=== PATIENT | female | born 1945 | race Caucasian/White ===

== ENCOUNTER 2016-10-21 08:00 | Outpatient (RCR) | payer MEDICARE ==
[~2016-10-21 08:00] MED LIST: ASP81CT PO; ATOR20TA66 PO; BENZ100C23 PO; BUDE10.2 IH; BUDE10.22 IH; CALC-694 PO; CEFD300C3 PO; FLUT1DIS26; GUAI600T43 PO; HYDR-3583 PO; HYDR-3714 PO; INHA1INH59 MC; IPRA3AMP19 NEB; LEVO500T2 PO; LEVO750T6 PO; MULT-35 PO; MULT-608 PO; RISE150T PO; SENN1TAB76 PO; SIMV20TA3 PO; SIMV40TA2 PO; SLMFT1E; SMV10T; TIOT18CA IH
== END 2016-10-31 | disposition home or self-care (01) ==
LOC: PULM 08:00
PROVIDERS: ATTEND Nurse Practitioner Family
DX: J44.9 Chronic obstructive pulmonary disease, unspecified (principal); R06.02 Shortness of breath
CPT/HCPCS: 99211

== ENCOUNTER → 2017-03-07 | Outpatient (CLI) | payer MEDICARE ==
--- NOTE | 2017-03-07 11:30 | Diagnostic Imaging Report ---
CLINICAL INDICATION: Patient states she has had right knee pain since Tuesday. EXAM: X-ray of the right knee, three views. COMPARISON: None. FINDINGS: There is no evidence of acute fracture or dislocation. There is moderately hypertrophic patellar spurs at the quadriceps attachment. There is small degenerative spurs involving the medial compartment and patellofemoral compartment. There is mild medial compartment narrowing on these nonweightbearing views. There is no significant knee effusion. IMPRESSION: 1: There is no acute fracture or dislocation. There is no significant knee effusion. 2: There is degenerative disease at the right knee, as described above. Dictated by: Dictated on workstation # [id number]
== END ==
LOC: RAD 10:38
PROVIDERS: ATTEND Family Medicine
DX: M17.11 Unilateral primary osteoarthritis, right knee (principal)
CPT/HCPCS: 73562

== ENCOUNTER → 2017-04-12 | Outpatient (CLI) | payer MEDICARE ==
--- NOTE | 2017-04-12 14:03 | Diagnostic Imaging Report ---
PROCEDURE: MRI right joint lower extremity without contrast. TECHNIQUE: Multiplanar, multisequence non contrast-enhanced MRI of the right lower extremity was accomplished. INDICATION: Right knee pain. FINDINGS: There is prominent bone marrow edema within the medial tibial condyle and the central posterior aspect of the proximal tibial shaft. Surrounding soft tissue edema is also seen. This also involves the popliteus muscle with increased signal. Etiology is uncertain. This may relate to a bone contusion. Part of the signal abnormality extends to the subchondral region along the medial tibial plateau and reactive edema, joint stress, or degenerative change is possible. The extensor mechanism demonstrates enthesopathy along the quadriceps insertion with no disruption or full-thickness tear in the extensor mechanism. The ACL and PCL appear intact. There is fluid intensity seen along the posterior root of the medial meniscus with suggestion of an avulsion of the meniscus root and associated extrusion of the body of the medial meniscus. Degenerative signal within the meniscus posterior horn and body with component of a nondisplaced tear is suggested. The lateral meniscus appears intact. The MCL demonstrates slight buckling from the extruded meniscus with no significant tear otherwise. The lateral collateral ligament complex is intact. There is no popliteal cyst. There is small joint effusion. The cartilage demonstrates moderate thinning in the medial compartment and mild thinning in the lateral compartment. There is moderate/ severe thinning of the cartilage in the upper aspect of the patella along the medial facets. IMPRESSION: 1. There is prominent bone marrow edema in the proximal tibia shaft posteriorly and the medial tibial plateau. This could be in part related to a contusion or stress reactive change from the knee joint. The appearance however is somewhat atypical, and the exact etiology is uncertain. Correlate clinically. 2. There is also mild soft tissue edema around in the proximal tibia and also involving the popliteus muscle which could relate to myositis or a sprain. 3. Avulsion of the posterior root of the medial meniscus with extrusion of the body of the meniscus. Dictated by: Dictated on workstation # [id number]
== END ==
LOC: RAD 12:21
PROVIDERS: ATTEND Orthopaedic Surgery
DX: S83.241A Other tear of medial meniscus, current injury, right knee, initial encounter (principal); M85.861 Other specified disorders of bone density and structure, right lower leg; X58.XXXA Exposure to other specified factors, initial encounter; Y99.8 Other external cause status
CPT/HCPCS: 73721

== ENCOUNTER → 2017-07-14 | Outpatient (CLI) | payer MEDICARE | LOC: RAD 09:54 | PROVIDERS: ATTEND Family Medicine | DX: Z12.31 Encounter for screening mammogram for malignant neoplasm of breast (principal) | CPT/HCPCS: 77067 ==

== ENCOUNTER 2017-07-29 12:15 | Emergency (ER) | payer MEDICARE ==
[~2017-07-29] VITALS: Ht 149.9 cm; Wt 54.9 kg
[~2017-07-29 12:15] MED LIST changes: +BENZ-36 PO; -BENZ100C23 PO
--- OUTSIDE RECORDS SUMMARY | 2017-07-29 12:28 | XMS REPORT | Continuity of Care Document ---
Author Author [facility] Organization [facility] Address Unknown Phone Unavailable Allergies Active Description Code Type Severity Reaction Onset Reported/Identified Relationship to Patient Clinical Status Yes No Known Drug Allergies [id number] Drug Allergy Unknown N/ A 01/24/2009 Medications Problems Date Dx Coded Attending Type Code Diagnosis Diagnosed By 09/17/2011 Ot V57.1 PHYSICAL THERAPY NEC 09/17/2011 Ot V58.43 AFTERCARE POST SURGERY INJURY/TRAUMA 07/14/2015 RUTHANN NEW DOLINE S Ot Z12.39 08/04/2015 SHERRILL NEW DO S Ot Z12.39 12/24/2015 DINO VALDERRAMA ACCOUNT REVIEW SPECIALIST Ot J44.9 01/14/2016 DINO VALDERRAMA ACCOUNT REVIEW SPECIALIST Ot J44.9 CHRONIC OBSTRUCTIVE PULMONARY DISEASE, U 01/21/2016 DINO VALDERRAMA ACCOUNT REVIEW SPECIALIST Ot J44.9 CHRONIC OBSTRUCTIVE PULMONARY DISEASE, U 01/30/2016 FARHEEN NEW DOQUELINE S Ot E78.0 PURE HYPERCHOLESTEROLEMIA 01/30/2016 FARHEEN NEW DOQUELINE S Ot E86.0 DEHYDRATION 01/30/2016 FARHEEN NEW DOQUELINE S Ot J18.9 PNEUMONIA, UNSPECIFIED ORGANISM 01/30/2016 FARHEEN NEW DOQUELINE S Ot J20.9 ACUTE BRONCHITIS, UNSPECIFIED 01/30/2016 LUCHONDANDRE DO SHERRILL S Ot J44.0 CHRONIC OBSTRUCTIVE PULMON DISEASE W ACU 01/30/2016 LUCHONDFARHEEN POWELL DOQUELINE S Ot J44.1 CHRONIC OBSTRUCTIVE PULMONARY DISEASE W 01/30/2016 FARHEEN NEW DOQUELINE S Ot J44.9 CHRONIC OBSTRUCTIVE PULMONARY DISEASE , U 01/30/2016 FARHEEN NEW DOQUELINE S Ot R09.02 HYPOXEMIA 01/30/2016 FARHEEN NEW DOQUELINE S Ot Z87.891 PERSONAL HISTORY OF NICOTINE DEPENDENCE 07/12/2016 Ot 786.2 COUGH 07/12/2016 LUCHONDER DO, SHERRILL S Ot V76.12 OTH SCREEN MAMMO-MALIGN NEOPLASM OF [place] 07/12/2016 ROBEL DO JADON Mcmahan Ot 715.36 LOC OSTEOARTH NOS-L/LEG 07/12/2016 ROBEL DO, JADON F Ot 717.2 DERANG POST MED MENISCUS 07/12/2016 ROBEL DO, JADON Marj Ot 719.06 JOINT EFFUSION-L/LEG 07/12/2016 ROBEL DO JADON F Ot 719.46 JOINT PAIN-L/LEG 07/12/2016 ROBEL DO, JADON F Ot 727.09 SYNOVITIS NEC 07/12/2016 JUSTIN DENSON GRINDER HARDBOARD Ot 786.2 COUGH 07/12/2016 LUCHONDER DO, SHERRILL S Ot 724.3 SCIATICA 07/12/2016 LUCHONDER DO, SHERRILL S Ot V76.12 OTH SCREEN MAMMO-MALIGN NEOPLASM OF [place] 07/12/2016 LUCHONDER DO SHERRILL S Ot Z12.39 ENCOUNTER FOR OTH SCREENING FOR MALIGNAN 07/12/2016 DINO VALDERRAMA APRN Ot J44.9 CHRONIC OBSTRUCTIVE PULMONARY DISEASE, U 07/12/2016 ORENDER DO, SHERRILL S Ot V76.12 OTH SCREEN MAMMO-MALIGN NEOPLASM OF [place] 07/12/2016 ROBEL VÁZQUEZ JADON Mcmahan Ot 715.36 LOC OSTEOARTH NOS-L/LEG 07/12/2016 ROBEL VÁZQUEZ JADON Mcmahan Ot 717.2 DERANG POST MED MENISCUS 07/12/2016 ROBEL DO JADON Mcmahan Ot 719.06 JOINT EFFUSION-L/LEG 07/12/2016 ROBEL DO JADON Marj Ot 719.46 JOINT PAIN-L/LEG 07/12/2016 ROBEL DO JADON F Ot 727.09 SYNOVITIS NEC 07/12/2016 JUSTIN DENSONP Ot 786.2 COUGH 07/12/2016 LUCHONDER DO, SHERRILL S Ot 724.3 SCIATICA 07/12/2016 ORENDER DO, SHERRILL S Ot V76.12 OTH SCREEN MAMMO-MALIGN NEOPLASM OF CL[place] 07/12/2016 LUCHONDER DO SHERRILL S Ot Z12.39 ENCOUNTER FOR OTH SCREENING FOR MALIGNAN 07/12/2016 DINO VALDERRAMA ACCOUNT REVIEW SPECIALIST Ot J44.9 CHRONIC OBSTRUCTIVE PULMONARY DISEASE, U 07/13/2016 LUCHONDANDRE VÁZQUEZ, SHERRILL S Ot Z12.31 ENCNTR SCREEN MAMMOGRAM FOR MALIGNANT NE 07/13/2016 ZE MERCER DO Ot J44.9 CHRONIC OBSTRUCTIVE PULMONARY DISEASE, U 07/14/2016 LUCHONDER DO, SHERRILL S Ot Z12.31 ENCNTR SCREEN MAMMOGRAM FOR MALIGNANT NE 07/19/2016 LUCHONDER , SHERRILL S Ot Z12.31 ENCNTR SCREEN MAMMOGRAM FOR MALIGNANT NE 07/22/2016 LUCHONDER DO, SHERRILL S Ot Z12.31 ENCNTR SCREEN MAMMOGRAM FOR MALIGNANT NE 08/02/2016 Ot 786.2 COUGH 08/02/2016 VIRGEN VÁZQUEZ, SHERRILL S Ot V76.12 OTH SCREEN MAMMO-MALIGN NEOPLASM OF [place] 08/02/2016 JADON HUSTON DO Ot 715.36 LOC OSTEOARTH NOS-L/LEG 08/02/2016 JADON HUSTON DO Ot 717.2 DERANG POST MED MENISCUS 08/02/2016 JADON HUSTON DO Ot 719.06 JOINT EFFUSION-L/LEG 08/02/2016 ROBEL VÁZQUEZ JADON Marj Ot 719.46 JOINT PAIN-L/LEG 08/02/2016 JADON HUSTON DO Ot 727.09 SYNOVITIS NEC 08/02/2016 JUSTIN DENSON Ot 786.2 COUGH 08/02/2016 VIRGEN VÁZQUEZ, SHERRILL S Ot 724.3 SCIATICA 08/02/2016 VIRGEN VÁZQUEZ SHERRILL S Ot V76.12 OTH SCREEN MAMMO-MALIGN NEOPLASM OF CL[place] 08/02/2016 VIRGEN VÁZQUEZ, SHERRILL S Ot Z12.39 ENCOUNTER FOR OTH SCREENING FOR MALIGNAN 08/02/2016 DINO VALDERRAMA ACCOUNT REVIEW SPECIALIST Ot J44.9 CHRONIC OBSTRUCTIVE PULMONARY DISEASE, U 08/02/2016 VIRGEN VÁZQUEZ, SHERRILL S Ot Z12.31 ENCNTR SCREEN MAMMOGRAM FOR MALIGNANT NE 08/02/2016 ZE MERCER DO Ot J44.9 CHRONIC OBSTRUCTIVE PULMONARY DISEASE, U 08/10/2016 ZE MERCER DO Ot J44.9 CHRONIC OBSTRUCTIVE PULMONARY DISEASE, U 08/11/2016 ZE MERCER DO Ot J44.9 CHRONIC OBSTRUCTIVE PULMONARY DISEASE, U 09/09/2016 EMILY PRITCHETT APRN Ot J44.9 CHRONIC OBSTRUCTIVE PULMONARY DISEASE , U 09/09/2016 EMILY PRITCHETT APRN Ot R06.02 SHORTNESS OF BREATH 09/16/2016 EMILY PRITCHETT APRN Ot J44.9 CHRONIC OBSTRUCTIVE PULMONARY DISEASE , U 09/16/2016 EMILY PRITCHETT APRN Ot R06.02 SHORTNESS OF BREATH 10/13/2016 Ot 486 10/13/2016 Ot 789.01 10/31/2016 EMILY PRITCHETT APRN Ot J44.9 CHRONIC OBSTRUCTIVE PULMONARY DISEASE , U 10/31/2016 EMILY PRITCHETT APRN Ot R06.02 SHORTNESS OF BREATH 03/07/2017 SHERRILL NEW DO S Ot V76.12 OTH SCREEN MAMMO-MALIGN NEOPLASM OF [place] 03/07/2017 JADON HUSTON DO Ot 715.36 LOC OSTEOARTH NOS-L/LEG 03/07/2017 JADON HUSTON DO Ot 717.2 DERANG POST MED MENISCUS 03/07/2017 JADON HUSTON DO Ot 719.06 JOINT EFFUSION-L/LEG 03/07/2017 JADON HUSTON DO Ot 719.46 JOINT PAIN-L/LEG 03/07/2017 JADON HUSTON DO Ot 727.09 SYNOVITIS NEC 03/07/2017 JUSTIN DENSON GRINDER HARDBOARD Ot 786.2 COUGH 03/07/2017 RUTHANN NEW DOLINE S Ot 724.3 SCIATICA 03/07/2017 RUTHANN NEW DOLINE S Ot V76.12 OTH SCREEN MAMMO-MALIGN NEOPLASM OF [place] 03/07/2017 RUTHANN NEW DOLINE S Ot Z12.39 ENCOUNTER FOR OTH SCREENING FOR MALIGNAN 03/07/2017 DINO VALDERRAMA APRN Ot J44.9 CHRONIC OBSTRUCTIVE PULMONARY DISEASE, U 03/07/2017 RUTHANN NEW DOLINE S Ot Z12.31 ENCNTR SCREEN MAMMOGRAM FOR MALIGNANT NE 03/07/2017 ZE MERCER DO Ot J44.9 CHRONIC OBSTRUCTIVE PULMONARY DISEASE, U 03/07/2017 EMILY PRITCHETT APRN Ot J44.9 CHRONIC OBSTRUCTIVE PULMONARY DISEASE , U 03/07/2017 EMILY PRITCHETT APRN Ot R06.02 SHORTNESS OF BREATH 03/08/2017 RUTHANN NEW DOLINE Joya Ot M17.11 UNILATERAL PRIMARY OSTEOARTHRITIS, RIGHT 03/31/2017 RUTHANN NEW DOLINE Joya Ot M17.11 UNILATERAL PRIMARY OSTEOARTHRITIS, RIGHT 04/08/2017 RUTHANN NEW DOLINE Joya Ot M17.11 UNILATERAL PRIMARY OSTEOARTHRITIS, RIGHT 05/10/2017 JADON HUSTON DO Ot M85.861 OTH DISRD OF BONE DENSITY AND STRUCTURE, 05/10/2017 JADON HUSTON DO Ot S83.241A OTH TEAR OF MEDIAL MENISCUS, CURRENT INJ 05/10/2017 JADON HUSTON DO Ot X58.XXXA EXPOSURE TO OTHER SPECIFIED FACTORS, INI 05/10/2017 JADON HUSTON DO Ot Y99.8 OTHER EXTERNAL CAUSE STATUS 05/13/2017 Ot 486 05/13/2017 Ot 789.01 05/17/2017 JADON HUTSON DO Ot M85.861 OT DISRD OF BONE DENSITY AND STRUCTURE, 05/17/2017 JADON HUSTON DO Ot S83.241A OTH TEAR OF MEDIAL MENISCUS, CURRENT INJ 05/17/2017 JADON HUSTON DO Ot X58.XXXA EXPOSURE TO OTHER SPECIFIED FACTORS, INI 05/17/2017 JADON HUSTON DO Ot Y99.8 OTHER EXTERNAL CAUSE STATUS 06/12/2017 Ot 486 06/12/2017 Ot 789.01 07/14/2017 VIRGEN VÁZQUEZSHERRILL Ot Z12.31 ENCNTR SCREEN MAMMOGRAM FOR MALIGNANT NE Procedures Results Encounters ACCT No. Visit Date/Time Discharge Status Pt. Type Provider Facility Loc./Unit Complaint [id number] 07/14/2017 09:54:00 2016 23:59:59 CLS Outpatient SHERRILL NEW DO [facility] RAD SCREENING [id number] 04/12/2017 12:21:00 2016 23:59:59 CLS Outpatient JADON HUSTON DO [facility] RAD RT KNEE PAIN, STABLE MMT [id number] 03/07/2017 10:38:00 2016 23:59:59 CLS Outpatient VIRGEN DO SHERRILL S [facility] RAD RIGHT KNEE PAIN [id number] 11/01/2016 10:15:00 2016 23:59:59 CLS Preadmit EMILY PRITCHETT APRN [facility] PULM COPD,SOB ON EXERTION [id number] 10/21/2016 08:00:00 2016 00:01:00 DIS Outpatient EMILY PRITCHETT ACCOUNT REVIEW SPECIALIST [facility] PULM COPD,SOB ON EXERTION [id number] 07/13/2016 09:59:00 2015 23:59:59 CLS Outpatient LUCHOJARADADNRE RUTHANN VÁZQUEZLINE S [facility] RAD SCREENING [id number] 07/12/2016 13:42:00 2015 23:59:59 CLS Outpatient ZE MERCER DO [facility] RT COPD [id number] 01/28/2016 18:52:00 2015 12:05:00 DIS Inpatient LUCHOJARADANDRE RUTHANN VÁZQUEZLINE S [facility] 4TH PNEUMONIA,HYPOXIA [id number] 12/23/2015 10:08:00 2015 23:59:59 CLS Outpatient LAVELLE DINOPOONAM Cheatham APRN [facility] RAD COUGH,COPD,CHEST CONGESTION [id number] 07/10/2015 08:47:00 2014 23:59:59 CLS Outpatient VIRGEN DO SHERRILL S [facility] RAD SCREENING [id number] 06/24/2014 10:00:00 2013 23:59:59 CLS Outpatient FARHEEN NEW DOQUELINE S [facility] RAD SCREENING [id number] 05/28/2014 08:40:00 2013 23:59:59 CLS Outpatient FARHEEN NEW DOQUELINE S [facility] RAD LBP,R LEG SCIATICA [id number] 04/29/2014 14:30:00 2013 23:59:59 CLS Outpatient JUSTIN DENSON [facility] RAD COUGH [id number] 12/26/2013 12:02:00 2013 23:59:59 CLS Outpatient ROBEL VÁZQUEZJADON [facility] RAD DJD LT KNEE [id number] 06/22/2013 09:15:00 2012 23:59:59 CLS Outpatient VIRGEN VÁZQUEZ SHERRILL Joya [facility] RAD SCREENING [id number] 07/29/2017 12:17:00 ACT Emergency KRISTEL JEFFERSON APRN [facility] ER ABD PAIN [id number] 09/17/2011 13:02:00 Document Registration [id number] 09/07/2011 14:42:00 Document Registration [id number] 01/23/2009 10:42:00 Document Registration
--- NOTE | 2017-07-29 13:10 | ED Abdominal Pain ---
General Chief Complaint: Abdominal/GI Problems Stated Complaint: ABD PAIN Nursing Triage Note: C/O diffuse abd pain. Constipated.Sawe Dr barkley yesterday Sepsis Screen: No Definite Risk Source of Information: Patient Exam Limitations: No Limitations History of Present Illness Time Seen By Provider: 13:07 Initial Comments The patient is a 72-year-old white female. She presents today with complaints of a funny odd pain in the right lower quadrant. She has also noted the onset of relative constipation. She saw Dr. Barkley yesterday in the office. She has been scheduled for a colonoscopy to be performed by Dr. Valenzuela the week after Thanksgi. She has not previously had a colonoscopy. She has not noted hematochezia or melena. There is been no nausea or vomiting. She has lost a few pounds but of no significance. She reports that in the distant past she lost 100 pounds by dieting. Her only other history is that of a Timing/Duration: 1 Week Severity/Quality: Mild, Moderate Location: RLQ Radiation: No Radiation Activities at Onset: None Allergies and Home Medications Allergies Coded Allergies: No Known Drug Allergies (Verified , 01/24/09) Home Medications Albuterol Sulfate/Ipratropium 3 Ml Solution, 3 ML NEB QID, (Reported) Atorvastatin Calcium 20 Mg Tablet, 20 MG PO HS, (Reported) Benzonatate 100 Mg Capsule, 100 MG PO TID, #30 Prescribed by: SHERRILL BARKLEY on 01/30/16 0949 Budesonide/Formoterol Fumarate 10.2 Gm Hfa.aer.ad, 2 PUFF IH DAILY, (Reported) Calcium Carbonate/Vitamin D3 1 Each Tablet, 1 TAB PO DAILY, (Reported) Cefdinir 300 Mg Capsule, 300 MG PO BID, #9 start tonight--01/30/16 Prescribed by: SHERRILL BARKLEY on 01/30/16 0949 Guaifenesin 600 Mg Tab.er.12h, 600 MG PO BID, #14 Prescribed by: SHERRILL BARKLEY on 01/30/16 0949 Levofloxacin 500 Mg Tablet, 500 MG PO DAILY, #5 start on 01/30/16 Prescribed by: SHERRILL BARKLEY on 01/30/16 0949 Multivitamin 1 Each Tablet, 1 TAB PO DAILY, (Reported) Review of Systems Constitutional: see HPI EENTM: No Symptoms Reported Respiratory: No Symptoms Reported Cardiovascular: No Symptoms Reported Gastrointestinal: Abdomen Distended, Abdominal Pain (right lower quadrant) Genitourinary: No Symptoms Reported Musculoskeletal: no symptoms reported Skin: no symptoms reported Psychiatric/Neurological: No Symptoms Reported Endocrine: No Symptoms Reported Hematologic/Lymphatic: No Symptoms Reported Past Scuevrs-Bjsbql-Cmyleg Hx Patient Social History Alcohol Use: Denies Use Recreational Drug Use: No Smoking Status: Former Smoker Former Smoker, Quit: February 04, 1996 Recent Foreign Travel: No Contact w/Someone Who Travel: No Recent Infectious Disease Expo: No Recent Hopitalizations: Yes (SUMMER 2008 FOR PNEUMONIA) Physical Abuse: No Sexual Abuse: No Mistreated: No Fear: No Immunizations Up To Date Tetanus Booster (TDap): Unknown PED Vaccines UTD: No Surgeries History of Surgeries: Yes (L knee scope) Surgeries: Orthopedic Respiratory History of Respiratory Disorde: Yes Respiratory Disorders: COPD Currently Using CPAP: No Currently Using BIPAP: No Cardiovascular History of Cardiac Disorders: Yes Cardiac Disorders: High Cholesterol, Valvular Heart Disease Neurological History of Neurological Disord: No Reproductive System Hx Reproductive Disorders: No Gastrointestinal History of Gastrointestinal Di: No Musculoskeletal History of Musculoskeletal Dis: Yes Musculoskeletal Disorders: Arthritis Endocrine History of Endocrine Disorders: No Cancer History of Cancer: No Psychosocial History of Psychiatric Problem: Yes (SLEEP DIFFICULTIES) Behavioral Health Disorders: Sleep Difficulties Suicide Risk Score: 0 Integumentary History of Skin or Integumenta: Yes (psoriasis on scalp) Skin/Integumentary Disorders: Psoriasis Blood Transfusions History of Blood Disorders: No Adverse Reaction to a Blood Tr: No Family Medical History Significant Family History: No Pertinent Family Hx Physical Exam Vital Signs VS - Last 72 Hours, by Label 07/29/17 12:59 Temp 98.2 Pulse 70 Resp 18 B/P (MAP) 172/68 Pulse Ox 93 Capillary Refill : Less Than 3 Seconds General Appearance: mild distress HEENT: normal ENT inspection Neck: full range of motion Respiratory: chest non-tender, lungs clear, normal breath sounds, no respiratory distress, no accessory muscle use Cardiovascular: normal peripheral pulses, regular rate, rhythm, no edema, no gallop, no JVD, no murmur Gastrointestinal: tenderness (mild right lower quadrant to deep palpation) Extremities: normal range of motion, non-tender, normal inspection, no pedal edema, no calf tenderness, normal capillary refill, pelvis stable Back: no CVA tenderness Neurologic/Psychiatric: emission technician II-XII nml as tested, no motor/sensory deficits, alert, normal mood/affect, oriented x 3 Skin: normal color, warm/dry Lymphatic: no adenopathy Progress/Results/Core Measures Results/Orders Lab Results Laboratory Tests Test 07/29/17 12:52 07/29/17 13:03 Range/Units Urine Color YELLOW Urine Clarity CLEAR Urine pH 5 5-9 Urine Specific [place] 1.020 1.016-1.022 Urine Protein NEGATIVE NEGATIVE Urine Glucose (UA) NEGATIVE NEGATIVE Urine Ketones 2+ H NEGATIVE Urine Nitrite NEGATIVE NEGATIVE Urine Bilirubin NEGATIVE NEGATIVE Urine Urobilinogen NORMAL NORMAL MG/DL Urine Leukocyte Esterase 1+ H NEGATIVE Urine RBC (Auto) NEGATIVE NEGATIVE Urine RBC NONE /HPF Urine WBC NONE /HPF Urine Squamous Epithelial Cells 0-2 /HPF Urine Crystals NONE /LPF Urine Bacteria NEGATIVE /HPF Urine Casts NONE /LPF Urine Mucus NEGATIVE /LPF Urine Culture Indicated NO White Blood Count 8.0 4.3-11.0 10^3/uL Red Blood Count 4.01 L 4.35-5.85 10^6/uL Hemoglobin 13.3 11.5-16.0 G/DL Hematocrit 39 35-52 % Mean Corpuscular Volume 97 80-99 FL Mean Corpuscular Hemoglobin 33 25-34 PG Mean Corpuscular Hemoglobin Concent 34 32-36 G/DL Red Cell Distribution Width 12.1 10.0-14.5 % Platelet Count 254 130-400 10^3/uL Mean Platelet Volume 11.0 H 7.4-10.4 FL Neutrophils (%) (Auto) 77 H 42-75 % Lymphocytes (%) (Auto) 13 12-44 % Monocytes (%) (Auto) 8 0-12 % Eosinophils (%) (Auto) 1 0-10 % Basophils (%) (Auto) 1 0-10 % Neutrophils # (Auto) 6.2 1.8-7.8 X 10^3 Lymphocytes # (Auto) 1.1 1.0-4.0 X 10^3 Monocytes # (Auto) 0.6 0.0-1.0 X 10^3 Eosinophils # (Auto) 0.1 0.0-0.3 10^3/uL Basophils # (Auto) 0.0 0.0-0.1 10^3/uL Sodium Level 138 135-145 MMOL/L Potassium Level 4.0 3.6-5.0 MMOL/L Chloride Level 102 98-107 MMOL/L Carbon Dioxide Level 24 21-32 MMOL/L Anion Gap 12 5-14 MMOL/L Blood Urea Nitrogen 9 7-18 MG/DL Creatinine 0.71 0.60-1.30 MG/DL Estimat Glomerular Filtration Rate > 60 BUN/Creatinine Ratio 13 Glucose Level 90 70-105 MG/DL Calcium Level 10.2 H 8.5-10.1 MG/DL Total Bilirubin 0.7 0.1-1.0 MG/DL Aspartate Amino Transf (AST/SGOT) 22 5-34 U/L Alanine Aminotransferase (ALT/SGPT) 14 0-55 U/L Alkaline Phosphatase 58 40-136 U/L Total Protein 7.1 6.4-8.2 GM/DL Albumin 4.2 3.2-4.5 GM/DL My Orders Orders - NUHNG GARCIA MD Cbc With Automated Diff (07/29/17 13:05) Comprehensive Metabolic Panel (07/29/17 13:05) Ua Culture If Indicated (07/29/17 13:05) Abdomen/Kub 1view (07/29/17 13:05) Vital Signs/I&O Vital Sign - Last 12Hours 07/29/17 12:59 Temp 98.2 Pulse 70 Resp 18 B/P (MAP) 172/68 Pulse Ox 93 Blood Pressure Mean: 102 Departure Communication (Admissions) Progress Notes Laboratory was relatively unremarkable. KUB showed an ordinary amount of stool but considerable gas including within the small bowel. The Impression Impression: Primary Impression: abdominal pain Disposition: 01 HOME, SELF-CARE Condition: Stable/Unchanged Departure-Patient Inst. Decision time for Depature: 14:28 Referrals: SHERRILL BARKLEY DO (PCP/Family) Primary Care Physician Patient Instructions: No Instuctions Given Add. Discharge Instructions: All discharge instructions reviewed with patient and/or family. Voiced understanding. Acquire MiraLAX which can be purchased [id number]. Use one measure in juice after supper daily to improve bowel habits. Keep appointment with Dr. Valenzuela as it is appropriate that you have a colonoscopy. NHUNG GARCIA MD Jul 29, 2017 13:10
[2017-07-29 13:15] LABS: BASOPHILS % (AUTO) 1 % (0-10); EOSINOPHILS # (AUTO) 0.1 10^3/uL (0.0-0.3); EOSINOPHILS % (AUTO) 1 % (0-10); LYMPHOCYTES # (AUTO) 1.1 X 10^3 (1.0-4.0); LYMPHOCYTES % (AUTO) 13 % (12-44); MEAN CORPUSCULAR HEMOGLOBIN 33 PG (25-34); MEAN CORPUSCULAR HGB CONC 34 G/DL (32-36); MEAN CORPUSCULAR VOLUME 97 FL (80-99); MONOCYTES # (AUTO) 0.6 X 10^3 (0.0-1.0); MONOCYTES % (AUTO) 8 % (0-12); NEUTROPHILS # (AUTO) 6.2 X 10^3 (1.8-7.8); NEUTROPHILS % (AUTO) 77 % (42-75); PLATELET COUNT 254 10^3/uL (130-400); RED BLOOD COUNT 4.01 10^6/uL (4.35-5.85); RED CELL DISTRIBUTION WIDTH 12.1 % (10.0-14.5)
[2017-07-29 13:16] LABS: BILIRUBIN,URINE NEGATIVE (NEGATIVE); KETONES,URINE 2+ (NEGATIVE); LEUKOCYTE ESTERASE ,URINE 1+ (NEGATIVE); NITRITE,URINE NEGATIVE (NEGATIVE); PH,URINE 5 (5-9); PROTEIN,URINE NEGATIVE (NEGATIVE); UROBILINOGEN,URINE NORMAL (NORMAL)
[2017-07-29 13:24] LABS: SQUAMOUS EPITHELIAL CELL,UR 0-2 /HPF
[2017-07-29 13:32] LABS: ALANINE AMINOTRANSFERASE 14 U/L (0-55); ALBUMIN 4.2 GM/DL (3.2-4.5); ANION GAP 12 MMOL/L (5-14); ASPARTATE AMINO TRANSFERASE 22 U/L (5-34); BILIRUBIN,TOTAL 0.7 MG/DL (0.1-1.0); BLOOD UREA NITROGEN 9 MG/DL (7-18); BUN/CREATININE RATIO 13; CALCIUM 10.2 MG/DL (8.5-10.1); CARBON DIOXIDE 24 MMOL/L (21-32); CHLORIDE 102 MMOL/L (98-107); CREATININE SERUM 0.71 MG/DL (0.60-1.30); GFR ESTIMATED > 60; GLUCOSE 90 MG/DL (70-105); SODIUM 138 MMOL/L (135-145); TOTAL PROTEIN 7.1 GM/DL (6.4-8.2)
--- NOTE | 2017-07-29 13:40 | Diagnostic Imaging Report ---
INDICATION: Pain, bowel gas pattern normal. No pathological fecal loading. Some faint calcifications in the right upper quadrant projecting along the medial aspect of the lower right hepatic lobe, which may be a biliary or renal. No pelvic calcifications. IMPRESSION: Nonobstructive bowel gas pattern. No abnormal fecal loading. Calcifications project over the right upper quadrant of uncertain etiology. Dictated by: Dictated on workstation # [id number]
[2017-07-29 14:40] VITALS: BP 116/70
== END 2017-07-29 14:41 | disposition home or self-care (01) ==
LOC: EDUNIT# 12:15 → ER 12:17
DX: R10.31 Right lower quadrant pain (principal); G47.9 Sleep disorder, unspecified; E78.00 Pure hypercholesterolemia, unspecified; J44.9 Chronic obstructive pulmonary disease, unspecified; Z87.891 Personal history of nicotine dependence
CPT/HCPCS: 36415; 74000; 80053; 81000; 85025

== ENCOUNTER 2017-08-12 05:34 | Outpatient (CLI) | payer MEDICARE ==
[~2017-08-12] VITALS: Ht 149.9 cm; Wt 53.1 kg
[2017-08-12] MEDS ORDERED: ALBU0.63 IH (10:14)
== END 2017-08-12 10:19 ==
LOC: PREOP 05:34
PROVIDERS: ATTEND Surgery
DX: Z01.818 Encounter for other preprocedural examination (principal); Z12.11 Encounter for screening for malignant neoplasm of colon

== ENCOUNTER 2017-08-17 09:52 | Day surgery (SDC) | payer MEDICARE ==
[~2017-08-17] VITALS: Ht 149.9 cm; Wt 53.1 kg
[~2017-08-17 09:52] MED LIST changes: +ALBU0.63 IH
[2017-08-17] MEDS ORDERED: NS IV 500 ML 500 ML IV PRN (10:05)
[2017-08-17] MEDS ORDERED: LIDOCAINE JELLY 2% (XYLOCAINE) 5 ML TUBE MM PRN (10:15)
[2017-08-17 10:23] VITALS: BP 106/72
[2017-08-17] MEDS ORDERED: fentaNYL INJECTION 100 MCG/2 ML AMP ONE ×2 (11:31)
[2017-08-17] MEDS ORDERED: MIDAZOLAM 2 MG/2 ML (VERSED) VIAL ONE ×3 (11:31→12:07)
--- NOTE | 2017-08-17 11:31 | Conscious Sedation/ASA ---
Conscious Sedation Pre-Proced Time Reviewed: 11:00 ASA Class: 2 Airway Mallampati Classification: (brevig mission appropriate class) I. II. III, IV Lungs Heart ASA score ASA 1: a normal healthy patient ASA 2: a patient with a mild systemic disease (mid diabetes, controlled hypertension, obesity ASA 3: a patient with a severe systemic disease that limits activity (angina , COPD, prior Myocardial infarction) ASA 4: a patient with an incapacitating disease that is a constant threat to life (CHF, renal failure) ASA 5: a moribund patient not expected to survive 24 hrs. (ruptured aneurysm) ASA 6: a declared brain patient whose organs are being harvested. For emergent operations, add the letter E after the classification Grade 2 Sedation Plan: Analgesia, Amnesia, Plan communicated to team members, Discussed options with patient/fam, Discussed risks with patient/fam Note The patient is an appropriate candidate to undergo the planned procedure, sedation, and anesthesia. The patient immediately re-assessed prior to indication. MIKY PALACIO MD Aug 17, 2017 11:31 am
[2017-08-17] MEDS ORDERED: LIDOCAINE JELLY 2% (XYLOCAINE) 5 ML TUBE ONE (11:32)
--- NOTE | 2017-08-17 11:32 | Progress Note-Pre Operative ---
Pre-Operative Progress Note H&P Reviewed The H&P was reviewed, patient examined and no changes noted. Date Seen by Provider: Aug 17, 2017 Time Seen by Provider: 11:00 Date H&P Reviewed: Aug 17, 2017 Time H&P Reviewed: 11:00 Pre-Operative Diagnosis: screening colonoscopy MIKY PALACIO MD Aug 17, 2017 11:32 am
[2017-08-17] MEDS ORDERED: ONDANSETRON 4 MG/2 ML (SDV) Z0FRAN IV PRN (11:45)
[2017-08-17] MEDS ORDERED: morphine INJ 10 MG/ML 1ML (SYR OR VIAL) IV PRN (11:45)
[2017-08-17] MEDS ORDERED: ACETAMINOPHEN 325 MG TABLET/CAPLET (TYLENOL) PO PRN (11:45)
[2017-08-17] MEDS ORDERED: HYDROcodone/APAP 5 MG/325 MG (LORTAB) TAB PO PRN (11:45)
[2017-08-17] MEDS: fentaNYL INJECTION 100 MCG/2 ML AMP IVP PRN ×4 (11:46→12:03)
[2017-08-17] MEDS: MIDAZOLAM 2 MG/2 ML (VERSED) VIAL IVP PRN ×3 (11:50→12:06)
--- NOTE | 2017-08-17 12:25 | Progress Note-Post Operative ---
Post-Operative Progess Note Surgeon (s)/Cabinet And Trim Installer (s) Surgeon MIKY PALACIO MD Cabinet And Trim Installer: none Pre-Operative Diagnosis screening colonoscopy Post-Operative Diagnosis chronic stage 2 ext and int hemorrhoids, rectosigmoid polyp(5mm), moderate sigmoid diverticulosis. Procedure & Operative Findings Date of Procedure 08/17/17 Procedure Performed/Findings Colonoscopy with snare polypectomy. Anesthesia Type CS Estimated Blood Loss Estimated blood loss (mL): minimal Specimens/Packing Specimens Removed rectosigmoid polyp MIKY PALACIO MD Aug 17, 2017 12:25 pm
--- NOTE | 2017-08-17 12:27 | Discharge Inst-Surgical ---
D/C Lap Instructions-PIA Follow Up 3 years Activity as tolerated High Fiber Diet 25g or more per day Avoid Alcohol, Caffeine, Spicy [place] and Acid foods. Drink 64 fluid oz or more of fluids per day. Symptoms to Report: Fever over 101 degree F, Nausea/Vomiting If any problems/questions: Contact your physician or go to Emergency Room MIKY PALACIO MD Aug 17, 2017 12:27 pm
[2017-08-17 12:50] VITALS: BP 114/50
[2017-08-17 13:19] VITALS: BP 119/58
[2017-08-17 13:30] VITALS: BP 119/58
--- NOTE | 2017-08-17 17:44 | OPERATIVE REPORT ---
DATE OF SERVICE: 08/17/2017 ATTENDING PRIMARY CARE PHYSICIAN: Dr. Wise. PREOPERATIVE DIAGNOSIS: Screening colonoscopy. POSTOPERATIVE DIAGNOSES: Chronic stage II external and internal hemorrhoids, adenomatous polyp of the rectosigmoid junction approximately 5 mm in size, moderate sigmoid diverticulosis. PROCEDURE: Colonoscopy with snare polypectomy. SURGEON: Miky Palacio MD ANESTHESIA: Conscious sedation. ESTIMATED BLOOD LOSS: Minimal. FINDINGS: Chronic stage II external and internal hemorrhoids, not actively edematous nor inflamed and no bleeding. There was an adenomatous polyp identified of the rectosigmoid junction approximately 5-6 mm in size. This was removed by snare polypectomy. DISPOSITION: The patient tolerated the procedure well. INDICATIONS: The patient is a 72-year-old female in need of a screening colonoscopy. She has not had a colonoscopy up to this point in her life. She reports that she is doing well and does not report any major issues of diarrhea nor constipation as well as no red blood per rectum nor any dark tarry stools. She is adopted; however, she states that her biologic mother had some form of cancer. DESCRIPTION OF PROCEDURE: The patient was brought to the endoscopy suite, laid in the left lateral decubitus position. After adequate IV pain and sedative medications and conscious sedation, a digital rectal examination was performed. Chronic stage II external and internal hemorrhoids were identified, which were not actually edematous nor inflamed and no bleeding. Normal sphincter tone was felt and there were no palpable masses. The endoscope was then intubated to the anus and rectum gently insufflated. The endoscope was then advanced through the valves of [place] in the rectum at approximately the rectosigmoid junction. An adenomatous polyp approximately 5 mm in size was identified. This was removed by snare polypectomy and electrocautery with visualization of good hemostasis. The endoscope was then advanced through the remainder of the descending, transverse and ascending colon to the cecum. These segments were normal. Endoscope was then slowly withdrawn with taking a second look and suctioning of residual air with no additional findings. The patient tolerated the procedure well. We will recommend a high-fiber diet with at least 25-30 grams of fiber per day as well as at least 64 fluid ounces of water daily to promote soft stools on a daily basis. We will have her proceed with a followup colonoscopy in 3 years. Job ID: [id number] DocumentID: [id number] Dictated Date: 08/17/2017 12:25:51 [employer] Reactor Operator Date: 08/17/2017 17:43:38 Dictated By: MIKY PALACIO MD MTDD
== END 2017-08-17 13:30 | disposition home or self-care (01) ==
LOC: ENDO 09:52
PROVIDERS: ATTEND Surgery
DX: Z12.11 Encounter for screening for malignant neoplasm of colon (principal); D12.7 Benign neoplasm of rectosigmoid junction; K64.1 Second degree hemorrhoids; J44.9 Chronic obstructive pulmonary disease, unspecified; I25.2 Old myocardial infarction; Z87.891 Personal history of nicotine dependence; Z80.9 Family history of malignant neoplasm, unspecified
CPT/HCPCS: 88305

== ENCOUNTER → 2017-08-29 | Outpatient (CLI) | payer MEDICARE ==
--- NOTE | 2017-08-29 19:03 | Diagnostic Imaging Report ---
Supine view of the abdomen. INDICATION: Abdominal pain after colonoscopy performed two weeks ago. FINDINGS: Iqwau-bl-bytvfvia amount of fecal material is seen in the colon. Calcifications in the left flank are seen which could relate to kidney stones up to 4 mm in size. Degenerative changes in the lumbar spine and SI joints seen. IMPRESSION: Nonspecific calcifications in the left flank up to 4 mm in size could possibly relate to kidney stones. Dictated by: Dictated on workstation # [id number]
== END ==
LOC: RAD 12:07
PROVIDERS: ATTEND Surgery
DX: K92.89 Other specified diseases of the digestive system (principal); Z98.890 Other specified postprocedural states
CPT/HCPCS: 74000

== ENCOUNTER 2017-10-28 11:23 | Emergency (ER) | payer MEDICARE ==
[~2017-10-28] VITALS: Ht 149.9 cm; Wt 53.1 kg
[2017-10-28] MEDS ORDERED: ASPIRIN 81 MG CHEW (CHILDREN'S ASA) ONE (11:44)
[2017-10-28] MEDS ORDERED: ASPIRIN 81 MG CHEW (CHILDREN'S ASA) PO ONE (11:45)
--- NOTE | 2017-10-28 11:48 | ED Chest Pain ---
General Chief Complaint: Chest Pain Stated Complaint: CP Source: patient Exam Limitations: no limitations History of Present Illness Date Seen by Provider: Oct 28, 2017 Time Seen by Provider: 11:45 Initial Comments To ER with a sharp left-sided chest pain. This awakened her from sleep at about 2 AM. It persisted until sometime mid morning at which point it became intermittent. She has had a cough more than usual recently. She is a former smoker but quit several years ago. She uses albuterol nebulizer morning and evening and during the day as needed. She denies fevers or chills. She states that she has had cardiac catheterizations within the past 5 years and does not have any stenting and she states she was told they looked fine. The time of arrival to ER the chest pain is absent Timing/Duration: changing over time Severity/Quality: sharp Radiation: no radiation Activities at Onset: rest Prior CP/Workup: cardiac cath ASA po TYPEWRITER TESTER: No NTG SL TYPEWRITER TESTER: No Associated Symptoms: No abdominal pain, No back pain, No diaphoresis, No dizziness, No edema, No nausea/vomiting, No shortness of breath, No swelling/ lump in chest Allergies and Home Medications Allergies Coded Allergies: No Known Drug Allergies (Verified , 10/28/17) Home Medications Albuterol Sulfate 0.63 Mg/3 Ml Vial.neb, 0.63 MG IH DAILY, (Reported) Atorvastatin Calcium 20 Mg Tablet, 20 MG PO HS, (Reported) Multivitamin 1 Each Tablet, 1 TAB PO DAILY, (Reported) Review of Systems Constitutional: see HPI, No chills, No fever EENTM: No Symptoms Reported Respiratory: See HPI, Cough Cardiovascular: See HPI, Chest Pain Gastrointestinal: No Symptoms Reported Genitourinary: No Symptoms Reported Musculoskeletal: no symptoms reported Skin: no symptoms reported Psychiatric/Neurological: No Symptoms Reported Endocrine: No Symptoms Reported Past Reaxrtk-Ufcgjw-Ctpqjy Hx Patient Social History Alcohol Use: Denies Use Recreational Drug Use: No Smoking Status: Former Smoker Former Smoker, Quit: February 04, 1996 Recent Hopitalizations: No Physical Abuse: No Sexual Abuse: No Mistreated: No Fear: No Immunizations Up To Date Tetanus Booster (TDap): Unknown PED Vaccines UTD: No Date of Pneumonia Vaccine: Aug 12, 2015 Date of Influenza Vaccine: Jun 20, 2017 Seasonal Allergies Seasonal Allergies: No Surgeries History of Surgeries: Yes (L knee scope) Surgeries: Orthopedic Respiratory History of Respiratory Disorde: Yes (O2 2L NC AT NIGHT) Respiratory Disorders: COPD Currently Using CPAP: No Currently Using BIPAP: No Cardiovascular History of Cardiac Disorders: Yes Cardiac Disorders: High Cholesterol, Valvular Heart Disease Neurological History of Neurological Disord: No Reproductive System Hx Reproductive Disorders: No Sexually Transmitted Disease: No HIV/AIDS: No Female Reproductive Disorders: Denies Gastrointestinal History of Gastrointestinal Di: No Musculoskeletal History of Musculoskeletal Dis: Yes Musculoskeletal Disorders: Arthritis Endocrine History of Endocrine Disorders: No HEENT Loss of Vision: Bilateral Hearing Impairment: Denies Cancer History of Cancer: No Psychosocial History of Psychiatric Problem: Yes (SLEEP DIFFICULTIES) Behavioral Health Disorders: Sleep Difficulties Suicide Risk Score: 0 Integumentary History of Skin or Integumenta: Yes (psoriasis on scalp) Skin/Integumentary Disorders: Psoriasis Blood Transfusions History of Blood Disorders: No Adverse Reaction to a Blood Tr: No Family Medical History Significant Family History: No Pertinent Family Hx Physical Exam Vital Signs Vital Signs - First Documented 10/28/17 10/28/17 11:25 12:00 Temp 98.0 Pulse 77 Resp 19 B/P (MAP) 144/66 (92) Pulse Ox 95 O2 Delivery Nasal Cannula O2 Flow Rate 2.00 Capillary Refill : Less Than 3 Seconds General Appearance: No Apparent Distress, WD/WN HEENT: PERRL/EOMI, TMs Normal Neck: Full Range of Motion, Normal Inspection Respiratory: No Accessory Muscle Use, No Respiratory Distress, Other (left lateral chest is tender to palpation but there is no rash) Cardiovascular: Regular Rate, Rhythm, Normal Peripheral Pulses Gastrointestinal: Normal Bowel Sounds, Non Tender, Soft Extremity: Normal Capillary Refill, Normal Inspection Neurologic/Psychiatric: Alert, Oriented x3, No Motor/Sensory Deficits Skin: Normal Color, Warm/Dry Progress/Results/Core Measures Results/Orders Lab Results Laboratory Tests Test 10/28/17 11:39 Range/Units White Blood Count 5.5 4.3-11.0 10^3/uL Red Blood Count 4.06 L 4.35-5.85 10^6/uL Hemoglobin 12.9 11.5-16.0 G/DL Hematocrit 38 35-52 % Mean Corpuscular Volume 95 80-99 FL Mean Corpuscular Hemoglobin 32 25-34 PG Mean Corpuscular Hemoglobin Concent 34 32-36 G/DL Red Cell Distribution Width 12.6 10.0-14.5 % Platelet Count 196 130-400 10^3/uL Mean Platelet Volume 10.2 7.4-10.4 FL Neutrophils (%) (Auto) 72 42-75 % Lymphocytes (%) (Auto) 13 12-44 % Monocytes (%) (Auto) 13 H 0-12 % Eosinophils (%) (Auto) 2 0-10 % Basophils (%) (Auto) 1 0-10 % Neutrophils # (Auto) 3.9 1.8-7.8 X 10^3 Lymphocytes # (Auto) 0.7 L 1.0-4.0 X 10^3 Monocytes # (Auto) 0.7 0.0-1.0 X 10^3 Eosinophils # (Auto) 0.1 0.0-0.3 10^3/uL Basophils # (Auto) 0.0 0.0-0.1 10^3/uL Prothrombin Time 12.5 12.2-14.7 SEC INR Comment 0.9 0.8-1.4 Activated Partial Thromboplast Time 28 24-35 SEC Sodium Level 139 135-145 MMOL/L Potassium Level 4.2 3.6-5.0 MMOL/L Chloride Level 102 98-107 MMOL/L Carbon Dioxide Level 27 21-32 MMOL/L Anion Gap 10 5-14 MMOL/L Blood Urea Nitrogen 9 7-18 MG/DL Creatinine 0.79 0.60-1.30 MG/DL Estimat Glomerular Filtration Rate > 60 BUN/Creatinine Ratio 11 Glucose Level 82 70-105 MG/DL Calcium Level 9.4 8.5-10.1 MG/DL Magnesium Level 1.9 1.8-2.4 MG/DL Total Bilirubin 0.6 0.1-1.0 MG/DL Aspartate Amino Transf (AST/SGOT) 25 5-34 U/L Alanine Aminotransferase (ALT/SGPT) 21 0-55 U/L Alkaline Phosphatase 61 40-136 U/L Myoglobin 49.2 10.0-92.0 NG/ML Troponin I < 0.30 <0.30 NG/ML Total Protein 7.2 6.4-8.2 GM/DL Albumin 4.3 3.2-4.5 GM/DL My Orders Orders - KRISTEL JEFFERSON PERMIT TECHNICIAN Cbc With Automated Diff (10/28/17 11:45) Magnesium (10/28/17 11:45) Chest 1 View, Ap/Pa Only (10/28/17 11:45) Ekg Tracing (10/28/17 11:45) Cardiac Profile 1 (10/28/17 11:45) Comprehensive Metabolic Panel (10/28/17 11:45) Myoglobin Serum (10/28/17 11:45) Protime With Inr (10/28/17 11:45) Partial Thromboplastin Time (10/28/17 11:45) O2 (10/28/17 11:45) Monitor-Rhythm Ecg Trace Only (10/28/17 11:45) Lipid Panel (10/29/17 06:00) Aspirin Chewable Tablet (Baby Aspirin Ch (10/28/17 11:45) Saline Lock/Iv-Start (10/28/17 11:45) Aspirin Chewable Tablet (Baby Aspirin Ch (10/28/17 11:44) Medications Given in ED Current Medications Medications Dose Ordered Sig/Jeyson Route Start Time Stop Time Status Last Admin Dose Admin Aspirin 81 mg STK-MED ONCE .ROUTE 10/28/17 11:44 10/28/17 11:46 DC 10/28/17 11:45 81 MG Vital Signs/I&O Vital Sign - Last 12Hours 10/28/17 10/28/17 11:25 12:00 Temp 98.0 Pulse 77 Resp 19 B/P (MAP) 144/66 (92) Pulse Ox 95 97 O2 Delivery Nasal Cannula O2 Flow Rate 2.00 Departure Communication (Admissions) Progress Notes 1235- remains pain-free. Given that her pain was present for at least 4 hours and began at 2 AM and despite that her troponin is still negative and her EKG is without ischemic changes is unlikely to be a cardiac cause of chest pain. Her symptoms of cough and a sharp chest pain are more consistent with a pleuritic type chest pain which would fit given her recent respiratory illness. Impression Impression: Primary Impression: Intermittent left-sided chest pain Disposition: 01 HOME, SELF-CARE Condition: Stable Departure-Patient Inst. Decision time for Depature: 12:36 Referrals: SHERRILL NEW DO (PCP/Family) Primary Care Physician Patient Instructions: Pleuritic Chest Pain (DC) Add. Discharge Instructions: 1. Return to the emergency room for any worsening chest pain or other concerns 2. Steroids and antibiotics as directed. Follow-up with Dr. New on Tuesday for recheck. All discharge instructions reviewed with patient and/or family. Voiced understanding. Scripts Acetaminophen with Codeine (Tylenol with Codeine #3 Tablet) 1 Each Tablet 1 EACH PO Q4H Y for COUGH, #14 TAB Prov: KRISTEL JEFFERSON APRN 10/28/17 Cefuroxime Axetil (Cefuroxime) 250 Mg Tablet 250 MG PO BID, #10 TAB Prov: KRISTEL JEFFERSON APRN 10/28/17 Prednisone (Prednisone) 20 Mg Tab 40 MG PO DAILY, #6 TAB Prov: KRISTEL JEFFERSON APRN 10/28/17 Copy Copies To 1: SHERRILL NEW PETER J APRN Oct 28, 2017 11:48
[2017-10-28 11:51] LABS: BASOPHILS % (AUTO) 1 % (0-10); EOSINOPHILS # (AUTO) 0.1 10^3/uL (0.0-0.3); EOSINOPHILS % (AUTO) 2 % (0-10); HEMATOCRIT 38 % (35-52); HEMOGLOBIN 12.9 G/DL (11.5-16.0); LYMPHOCYTES # (AUTO) 0.7 X 10^3 (1.0-4.0); LYMPHOCYTES % (AUTO) 13 % (12-44); MEAN CORPUSCULAR HEMOGLOBIN 32 PG (25-34); MEAN CORPUSCULAR HGB CONC 34 G/DL (32-36); MEAN CORPUSCULAR VOLUME 95 FL (80-99); MEAN PLATELET VOLUME 10.2 FL (7.4-10.4); MONOCYTES # (AUTO) 0.7 X 10^3 (0.0-1.0); MONOCYTES % (AUTO) 13 % (0-12); NEUTROPHILS # (AUTO) 3.9 X 10^3 (1.8-7.8); NEUTROPHILS % (AUTO) 72 % (42-75); PLATELET COUNT 196 10^3/uL (130-400); RED BLOOD COUNT 4.06 10^6/uL (4.35-5.85); RED CELL DISTRIBUTION WIDTH 12.6 % (10.0-14.5); WHITE BLOOD COUNT 5.5 10^3/uL (4.3-11.0)
[2017-10-28 12:01] LABS: INR 0.9 (0.8-1.4); PROTHROMBIN TIME PATIENT 12.5 SEC (12.2-14.7)
[2017-10-28 12:13] LABS: ALANINE AMINOTRANSFERASE 21 U/L (0-55); ALBUMIN 4.3 GM/DL (3.2-4.5); ALKALINE PHOSPHATASE 61 U/L (40-136); BILIRUBIN,TOTAL 0.6 MG/DL (0.1-1.0); BUN/CREATININE RATIO 11; CALCIUM 9.4 MG/DL (8.5-10.1); CARBON DIOXIDE 27 MMOL/L (21-32); CHLORIDE 102 MMOL/L (98-107); CREATININE SERUM 0.79 MG/DL (0.60-1.30); GFR ESTIMATED > 60; GLUCOSE 82 MG/DL (70-105); MAGNESIUM 1.9 MG/DL (1.8-2.4); POTASSIUM 4.2 MMOL/L (3.6-5.0); SODIUM 139 MMOL/L (135-145); TOTAL PROTEIN 7.2 GM/DL (6.4-8.2)
[2017-10-28 12:19] LABS: MYOGLOBIN SERUM 49.2 NG/ML (10.0-92.0)
--- NOTE | 2017-10-28 12:33 | Diagnostic Imaging Report ---
INDICATION: Cough and chest pain. TIME OF EXAM: 12:15 p.m. COMPARISON: Comparison is made with prior study from 01/28/2016. FINDINGS: The heart size is normal. The pulmonary vascularity is unremarkable. The lungs are clear. No infiltrate, effusion or pneumothorax is detected. IMPRESSION: No acute cardiopulmonary process is detected. Dictated by: Dictated on workstation # [id number]
[2017-10-28] MEDS ORDERED: PRD20T PO (12:38)
[2017-10-28] MEDS ORDERED: CEFU250T80 PO (12:38)
[2017-10-28] MEDS ORDERED: ACET-789 PO (12:38)
[2017-10-28 13:11] VITALS: BP 136/71
--- OUTSIDE RECORDS SUMMARY | 2017-10-28 16:51 | XMS REPORT | Continuity of Care Document ---
Author Author [facility] Organization [facility] Address Unknown Phone Unavailable Allergies Active Description Code Type Severity Reaction Onset Reported/Identified Relationship to Patient Clinical Status Yes No Known Drug Allergies [id number] Drug Allergy Unknown N/A 08/17/2017 Medications There is no data. Problems Date Dx Coded Attending Type Code Diagnosis Diagnosed By 09/17/2011 Ot V57.1 PHYSICAL THERAPY NEC 09/17/2011 Ot V58.43 AFTERCARE POST SURGERY INJURY/TRAUMA 07/14/2015 SHERRILL NEW DO S Ot Z12.39 08/04/2015 SHERRILL NEW DO S Ot Z12.39 12/24/2015 DINO VALDERRAMA AUTOMOTIVE ELECTRICAL FITTER Ot J44.9 01/14/2016 DINO VALDERRAMA AUTOMOTIVE ELECTRICAL FITTER Ot J44.9 CHRONIC OBSTRUCTIVE PULMONARY DISEASE, U 01/21/2016 DINO VALDERRAMA AUTOMOTIVE ELECTRICAL FITTER Ot J44.9 CHRONIC OBSTRUCTIVE PULMONARY DISEASE, U 01/30/2016 FARHEEN NEW DOQUELINE S Ot E78.0 PURE HYPERCHOLESTEROLEMIA 01/30/2016 FARHEEN NEW DOQUELINE S Ot E86.0 DEHYDRATION 01/30/2016 FARHEEN NEW DOQUELINE S Ot J18.9 PNEUMONIA, UNSPECIFIED ORGANISM 01/30/2016 FARHEEN NEW DOQUELINE S Ot J20.9 ACUTE BRONCHITIS, UNSPECIFIED 01/30/2016 FARHEEN NEW DOQUELINE S Ot J44.0 CHRONIC OBSTRUCTIVE PULMON DISEASE W ACU 01/30/2016 FARHEEN NEW DOQUELINE S Ot J44.1 CHRONIC OBSTRUCTIVE PULMONARY DISEASE W 01/30/2016 FARHEEN NEW DOQUELINE S Ot J44.9 CHRONIC OBSTRUCTIVE PULMONARY DISEASE, U 01/30/2016 FARHEEN NEW DOQUELINE S Ot R09.02 HYPOXEMIA 01/30/2016 RUTHANN NEW DOLINE S Ot Z87.891 PERSONAL HISTORY OF NICOTINE DEPENDENCE 07/12/2016 Ot 786.2 COUGH 07/12/2016 RUTHANN NEW DOLINE S Ot V76.12 OTH SCREEN MAMMO-MALIGN NEOPLASM OF CLARY 07/12/2016 ROBEL VÁZQUEZ JADON Mcmahan Ot 715.36 LOC OSTEOARTH NOS-L/LEG 07/12/2016 ROBEL VÁZQUEZ JADON Mcmahan Ot 717.2 DERANG POST MED MENISCUS 07/12/2016 ROBEL VÁZQUEZ JADON Mcmahan Ot 719.06 JOINT EFFUSION-L/LEG 07/12/2016 ROBEL VÁZQUEZ JADON F Ot 719.46 JOINT PAIN-L/LEG 07/12/2016 ROBEL VÁZQUEZ JADON Mcmahan Ot 727.09 SYNOVITIS NEC 07/12/2016 JUSTIN DENSON Ot 786.2 COUGH 07/12/2016 SHERRILL NEW DO S Ot 724.3 SCIATICA 07/12/2016 HSERRILL NEW DO S Ot V76.12 OTH SCREEN MAMMO-MALIGN NEOPLASM OF CLARY 07/12/2016 RUTHANN NEW DOLINE S Ot Z12.39 ENCOUNTER FOR OTH SCREENING FOR MALIGNAN 07/12/2016 DINO VALDERRAMA APRN Ot J44.9 CHRONIC OBSTRUCTIVE PULMONARY DISEASE, U 07/12/2016 RUTHANN NEW DOLINE S Ot V76.12 OTH SCREEN MAMMO-MALIGN NEOPLASM OF CL[place] 07/12/2016 ROBEL VÁZQUEZ JADON Mcmahan Ot 715.36 LOC OSTEOARTH NOS-L/LEG 07/12/2016 ROBEL VÁZQUEZ JADON Mcmahan Ot 717.2 DERANG POST MED MENISCUS 07/12/2016 ROBEL VÁZQUEZ JADON Mcmahan Ot 719.06 JOINT EFFUSION-L/LEG 07/12/2016 ROBEL VÁZQUEZ JADON Mcmahan Ot 719.46 JOINT PAIN-L/LEG 07/12/2016 ROBEL VÁZQUEZ JADON Mcmahan Ot 727.09 SYNOVITIS NEC 07/12/2016 JUSTIN DENSON Ot 786.2 COUGH 07/12/2016 FARHEEN NEW DOQUELINE S Ot 724.3 SCIATICA 07/12/2016 FARHEEN NEW DOQUELINE S Ot V76.12 OTH SCREEN MAMMO-MALIGN NEOPLASM OF CLARY 07/12/2016 FARHEEN NEW DOQUELINE S Ot Z12.39 ENCOUNTER FOR OTH SCREENING FOR MALIGNAN 07/12/2016 DINO VALDERRAMA APRN Ot J44.9 CHRONIC OBSTRUCTIVE PULMONARY DISEASE, U 07/13/2016 LUCHONDER DO, SHERRILL S Ot Z12.31 ENCNTR SCREEN MAMMOGRAM FOR MALIGNANT NE 07/13/2016 ZE MERCER DO Ot J44.9 CHRONIC OBSTRUCTIVE PULMONARY DISEASE, U 07/14/2016 ORENDER DO, SHERRILL S Ot Z12.31 ENCNTR SCREEN MAMMOGRAM FOR MALIGNANT NE 07/19/2016 LUCHONDER DO, SHERRILL S Ot Z12.31 ENCNTR SCREEN MAMMOGRAM FOR MALIGNANT NE 07/22/2016 ORENDER DO, SHERRILL S Ot Z12.31 ENCNTR SCREEN MAMMOGRAM FOR MALIGNANT NE 08/02/2016 Ot 786.2 COUGH 08/02/2016 VIRGEN DO, SHERRILL S Ot V76.12 OTH SCREEN MAMMO-MALIGN NEOPLASM OF CL[place] 08/02/2016 JADON HUSTON DO Ot 715.36 LOC OSTEOARTH NOS-L/LEG 08/02/2016 JADON HUSTON DO Ot 717.2 DERANG POST MED MENISCUS 08/02/2016 JADON HUSTON DO Ot 719.06 JOINT EFFUSION-L/LEG 08/02/2016 JADON HUSTON DO Ot 719.46 JOINT PAIN-L/LEG 08/02/2016 JADON HUSTON DO Ot 727.09 SYNOVITIS NEC 08/02/2016 JUSTIN DENSON Ot 786.2 COUGH 08/02/2016 VIRGEN VÁZQUEZ, SHERRILL S Ot 724.3 SCIATICA 08/02/2016 FARHEEN NEW DOQUELINE S Ot V76.12 OTH SCREEN MAMMO-MALIGN NEOPLASM OF CL[place] 08/02/2016 VIRGEN VÁZQUEZ, SHERRILL S Ot Z12.39 ENCOUNTER FOR OTH SCREENING FOR MALIGNAN 08/02/2016 DINO VALDERRAMA APRN Ot J44.9 CHRONIC OBSTRUCTIVE PULMONARY DISEASE, U 08/02/2016 LUCHONDER DO, SHERRILL S Ot Z12.31 ENCNTR SCREEN MAMMOGRAM FOR MALIGNANT NE 08/02/2016 ZE MERCER DO Ot J44.9 CHRONIC OBSTRUCTIVE PULMONARY DISEASE, U 08/10/2016 ZE MERCER DO Ot J44.9 CHRONIC OBSTRUCTIVE PULMONARY DISEASE, U 08/11/2016 ZE MERCER DO Ot J44.9 CHRONIC OBSTRUCTIVE PULMONARY DISEASE, U 09/09/2016 EMILY PRITCHETT APRN Ot J44.9 CHRONIC OBSTRUCTIVE PULMONARY DISEASE, U 09/09/2016 EMILY PRITCHETT APRN Ot R06.02 SHORTNESS OF BREATH 09/16/2016 EMILY PRITCHETT APRN Ot J44.9 CHRONIC OBSTRUCTIVE PULMONARY DISEASE, U 09/16/2016 EMILY PRITCHETT APRN Ot R06.02 SHORTNESS OF BREATH 10/13/2016 Ot 486 10/13/2016 Ot 789.01 10/31/2016 EMILY PRITCHETT APRN Ot J44.9 CHRONIC OBSTRUCTIVE PULMONARY DISEASE, U 10/31/2016 MEILY PRITCHETT APRN Ot R06.02 SHORTNESS OF BREATH [...] Ot 727.09 SYNOVITIS NEC 03/07/2017 JUSTIN DENSON SATELLITE DISH TECHNICIAN Ot 786.2 COUGH 03/07/2017 SHERRILL NEW DO S Ot 724.3 SCIATICA 03/07/2017 FARHEEN NEW DOQUELINE S Ot V76.12 OTH SCREEN MAMMO-MALIGN NEOPLASM OF CL[place] 03/07/2017 RUTHANN NEW DOLINE S Ot Z12.39 ENCOUNTER FOR OTH SCREENING FOR MALIGNAN 03/07/2017 DINO VALDERRAMA APRN Ot J44.9 CHRONIC OBSTRUCTIVE PULMONARY DISEASE, U 03/07/2017 SHERRILL NEW DO S Ot Z12.31 ENCNTR SCREEN MAMMOGRAM FOR MALIGNANT NE 03/07/2017 ZE MERCER DO Ot J44.9 CHRONIC OBSTRUCTIVE PULMONARY DISEASE, U 03/07/2017 EMILY PRITCHETT APRN Ot J44.9 CHRONIC OBSTRUCTIVE PULMONARY DISEASE, U 03/07/2017 EMILY PRITCHETT APRN Ot R06.02 SHORTNESS OF BREATH 03/08/2017 SHERRILL NEW DO Ot M17.11 UNILATERAL PRIMARY OSTEOARTHRITIS, RIGHT 03/31/2017 SHERRILL NEW DO Ot M17.11 UNILATERAL PRIMARY OSTEOARTHRITIS, RIGHT 04/08/2017 SHERRILL NEW DO Ot M17.11 UNILATERAL PRIMARY OSTEOARTHRITIS, RIGHT 05/10/2017 JADON HUSTON DO Ot M85.861 OTH DISRD OF BONE DENSITY AND STRUCTURE, 05/10/2017 JADON HUSTON DO Ot S83.241A OTH TEAR OF MEDIAL MENISCUS, CURRENT INJ 05/10/2017 JADON HUSTON DO Ot X58.XXXA EXPOSURE TO OTHER SPECIFIED FACTORS, INI 05/10/2017 JADON HUSTON DO Ot Y99.8 OTHER EXTERNAL CAUSE STATUS 05/13/2017 Ot 486 05/13/2017 Ot 789.01 05/17/2017 JADON HUSTON DO Ot M85.861 OTH DISRD OF BONE DENSITY AND STRUCTURE, 05/17/2017 JADON HUSTON DO Ot S83.241A OTH TEAR OF MEDIAL MENISCUS, CURRENT INJ 05/17/2017 JADON HUSTON DO Ot X58.XXXA EXPOSURE TO OTHER SPECIFIED FACTORS, INI 05/17/2017 JADON HUSTON DO Ot Y99.8 OTHER EXTERNAL CAUSE STATUS 06/12/2017 Ot 486 06/12/2017 Ot 789.01 07/14/2017 SHERRILL NEW DO Ot Z12.31 ENCNTR SCREEN MAMMOGRAM FOR MALIGNANT NE 07/29/2017 NHUNG GARCIA MD Ot E78.00 PURE HYPERCHOLESTEROLEMIA, UNSPECIFIED 07/29/2017 NHUNG GARCIA MD Ot G47.9 SLEEP DISORDER, UNSPECIFIED 07/29/2017 NHUNG GARCIA MD Ot J44.9 CHRONIC OBSTRUCTIVE PULMONARY DISEASE, U 07/29/2017 NHUNG GARCIA MD Ot R10.31 RIGHT LOWER QUADRANT PAIN 07/29/2017 NHUNG GARCIA MD Ot Z87.891 PERSONAL HISTORY OF NICOTINE DEPENDENCE 08/01/2017 NHUNG GARCIA MD Ot E78.00 PURE HYPERCHOLESTEROLEMIA, UNSPECIFIED 08/01/2017 NHUNG GARCIA MD Ot G47.9 SLEEP DISORDER, UNSPECIFIED 08/01/2017 NHUNG GARCIA MD Ot J44.9 CHRONIC OBSTRUCTIVE PULMONARY DISEASE, U 08/01/2017 NHUNG GARCIA MD Ot R10.31 RIGHT LOWER QUADRANT PAIN 08/01/2017 NHUNG GARCIA MD Ot Z87.891 PERSONAL HISTORY OF NICOTINE DEPENDENCE 08/08/2017 SHERRILL NEW DO Ot Z12.31 ENCNTR SCREEN MAMMOGRAM FOR MALIGNANT NE 08/12/2017 EMILY PRITCHETT APRN Ot J44.9 CHRONIC OBSTRUCTIVE PULMONARY DISEASE, U 08/12/2017 EMILY PRITCHETT AUTOMOTIVE ELECTRICAL FITTER Ot R06.02 SHORTNESS OF BREATH 08/17/2017 EMILY PRITCHETT AUTOMOTIVE ELECTRICAL FITTER Ot J44.9 CHRONIC OBSTRUCTIVE PULMONARY DISEASE, U 08/17/2017 EMILY PRITCHETT APRN Ot R06.02 SHORTNESS OF BREATH 08/17/2017 MIKY PALACIO MD Ot 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 08/17/2017 MIKY PALACIO MD Ot I25.2 OLD MYOCARDIAL INFARCTION 08/17/2017 MIKY PALACIO MD Ot J44.9 CHRONIC OBSTRUCTIVE PULMONARY DISEASE, U 08/17/2017 MIKY PALACIO MD Ot K64.1 SECOND DEGREE HEMORRHOIDS 08/17/2017 MIKY PALACIO MD Ot Z12.11 ENCOUNTER FOR SCREENING FOR MALIGNANT NE 08/17/2017 MIKY PALACIO MD Ot Z80.9 FAMILY HISTORY OF MALIGNANT NEOPLASM, UN 08/17/2017 MIKY PALACIO MD Ot Z87.891 PERSONAL HISTORY OF NICOTINE DEPENDENCE 09/16/2017 MIKY PALACIO MD Ot 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 09/16/2017 MIKY PALACIO MD Ot I25.2 OLD MYOCARDIAL INFARCTION 09/16/2017 MIKY PALACIO MD Ot J44.9 CHRONIC OBSTRUCTIVE PULMONARY DISEASE, U 09/16/2017 MIKY PALACIO MD Ot K64.1 SECOND DEGREE HEMORRHOIDS 09/16/2017 MIKY PALACIO MD Ot Z12.11 ENCOUNTER FOR SCREENING FOR MALIGNANT NE 09/16/2017 MIKY PALACIO MD Ot Z80.9 FAMILY HISTORY OF MALIGNANT NEOPLASM, UN 09/16/2017 MIKY PALACIO MD, Ot Z87.891 PERSONAL HISTORY OF NICOTINE DEPENDENCE 09/21/2017 MIKY PALACIO MD, Ot K92.89 OTHER SPECIFIED DISEASES OF THE DIGESTIV 09/21/2017 MIKY PALACIO MD, Ot Z98.890 OTHER SPECIFIED POSTPROCEDURAL STATES 09/29/2017 MIKY PALACIO MD, Ot K92.89 OTHER SPECIFIED DISEASES OF THE DIGESTIV 09/29/2017 MIKY PALACIO MD, Ot Z98.890 OTHER SPECIFIED POSTPROCEDURAL STATES Procedures There is no data. Results Test Result Range Complete urinalysis with reflex to culture - 07/29/17 12:52 Urine color determination YELLOW NRG Urine clarity determination CLEAR NRG Urine pH measurement by test strip 5 5-9 Specific gravity of urine by test strip 1.020 1.016- 1.022 Urine protein assay by test strip, semi-quantitative NEGATIVE NEGATIVE Urine glucose detection by automated test strip NEGATIVE NEGATIVE Erythrocytes detection in urine sediment by light microscopy NEGATIVE NEGATIVE Urine ketones detection by automated test strip 2+ NEGATIVE Urine nitrite detection by test strip NEGATIVE NEGATIVE Urine total bilirubin detection by test strip NEGATIVE NEGATIVE Urine urobilinogen measurement by automated test strip (mass/volume) NORMAL NORMAL Urine leukocyte esterase detection by dipstick 1+ NEGATIVE Automated urine sediment erythrocyte count by microscopy (number/high power field) NONE NRG Automated urine sediment leukocyte count by microscopy (number/high power field ) NONE NRG Bacteria detection in urine sediment by light microscopy NEGATIVE NRG Squamous epithelial cells detection in urine sediment by light microscopy 0-2 NRG Crystals detection in urine sediment by light microscopy NONE NRG Casts detection in urine sediment by light microscopy NONE NRG Mucus detection in urine sediment by light microscopy NEGATIVE NRG Complete urinalysis with reflex to culture NO NRG Complete blood count (CBC) with automated white blood cell (WBC) differential - 07/29/17 13:03 Blood leukocytes automated count (number/volume) 8.0 10*3/uL 4.3-11.0 Blood erythrocytes automated count (number/volume) 4.01 10*6/uL 4.35-5.85 Venous blood hemoglobin measurement (mass/volume) 13.3 g/dL 11.5-16.0 Blood hematocrit (volume fraction) 39 % 35-52 Automated erythrocyte mean corpuscular volume 97 [foz_us] 80-99 Automated erythrocyte mean corpuscular hemoglobin (mass per erythrocyte) 33 pg 25-34 Automated erythrocyte mean corpuscular hemoglobin concentration measurement ( mass/volume) 34 g/dL 32-36 Automated erythrocyte distribution width ratio 12.1 % 10.0-14.5 Automated blood platelet count (count/volume) 254 10*3/uL 130-400 Automated blood platelet mean volume measurement 11.0 [foz_us] 7.4-10.4 Automated blood neutrophils/100 leukocytes 77 % 42-75 Automated blood lymphocytes/100 leukocytes 13 % 12-44 Blood monocytes/100 leukocytes 8 % 0-12 Automated blood eosinophils/100 leukocytes 1 % 0-10 Automated blood basophils/100 leukocytes 1 % 0-10 Blood neutrophils automated count (number/volume) 6.2 10*3 1.8-7.8 Blood lymphocytes automated count (number/volume) 1.1 10*3 1.0-4.0 Blood monocytes automated count (number/volume) 0.6 10*3 0.0-1.0 Automated eosinophil count 0.1 10*3/uL 0.0-0.3 Automated blood basophil count (count/volume) 0.0 10*3/uL 0.0-0.1 Comprehensive metabolic panel - 07/29/17 13:03 Serum or plasma sodium measurement (moles/volume) 138 mmol/L 135-145 Serum or plasma potassium measurement (moles/volume) 4.0 mmol/L 3.6-5.0 Serum or plasma chloride measurement (moles/volume) 102 mmol/L 98-107 Carbon dioxide 24 mmol/L 21-32 Serum or plasma anion gap determination (moles/volume) 12 mmol/L 5-14 Serum or plasma urea nitrogen measurement (mass/volume) 9 mg/dL 7-18 Serum or plasma creatinine measurement (mass/volume) 0.71 mg/dL 0.60-1.30 Serum or plasma urea nitrogen/creatinine mass ratio 13 NRG Serum or plasma creatinine measurement with calculation of estimated glomerular filtration rate > NRG Serum or plasma glucose measurement (mass/volume) 90 mg/dL 70-105 Serum or plasma calcium measurement (mass/volume) 10.2 mg/dL 8.5-10.1 Serum or plasma total bilirubin measurement (mass/volume) 0.7 mg/dL 0.1-1.0 Serum or plasma alkaline phosphatase measurement (enzymatic activity/volume) 58 U/L 40-136 Serum or plasma aspartate aminotransferase measurement (enzymatic activity/ volume) 22 U/L 5-34 Serum or plasma alanine aminotransferase measurement (enzymatic activity/volume ) 14 U/L 0-55 Serum or plasma protein measurement (mass/volume) 7.1 g/dL 6.4-8.2 Serum or plasma albumin measurement (mass/volume) 4.2 g/dL 3.2-4.5 Encounters ACCT No. Visit Date/Time Discharge Status Pt. Type Provider Facility Loc./Unit Complaint [id number] 08/29/2017 12:07:00 08/29/2017 23:59:59 CLS Outpatient MIKY PALACIO MD [facility] RAD ABD PAIN [id number] 08/17/2017 09:52:00 08/17/2017 13:30:00 DIS Outpatient MIKY PALACIO MD [facility] ENDO SCREENING [id number] 08/12/2017 05:34:00 08/12/2017 10:19:00 DIS Outpatient MIKY PALACIO MD [facility] PREOP COLONOSCOPY [id number] 07/29/2017 12:17:00 07/29/2017 14:41:00 DIS Emergency JOSE KEMP, NHUNG Chavez [facility] ER ABD PAIN [id number] 07/14/2017 09:54:00 07/14/2017 23:59:59 CLS Outpatient SHERRILL NEW DO [facility] RAD SCREENING [id number] 04/12/2017 12:21:00 04/12/2017 23:59:59 CLS Outpatient JADON HUSTON DO [facility] RAD RT KNEE PAIN, STABLE MMT [id number] 03/07/2017 10:38:00 03/07/2017 23:59:59 CLS Outpatient SHERRILL NEW DO [facility] RAD RIGHT KNEE PAIN [id number] 11/01/2016 10:15:00 11/01/2016 23:59:59 CLS Preadmit EMILY PRITCHETT APRN [facility] PULM COPD,SOB ON EXERTION [id number] 10/21/2016 08:00:00 10/31/2016 00:01:00 DIS Outpatient GAVIOTA PRITCHETTIGNACIA Whitlock AUTOMOTIVE ELECTRICAL FITTER [facility] PULM COPD,SOB ON EXERTION [id number] 07/13/2016 09:59:00 07/13/2016 23:59:59 CLS Outpatient SHERRILL NEW DO S [facility] RAD SCREENING [id number] 07/12/2016 13:42:00 07/12/2016 23:59:59 CLS Outpatient ZE MERCER DO [facility] RT COPD [id number] 01/28/2016 18:52:00 01/30/2016 12:05:00 DIS Inpatient SHERRILL NEW DO S [facility] 4TH PNEUMONIA,HYPOXIA [id number] 12/23/2015 10:08:00 12/23/2015 23:59:59 CLS Outpatient DINO VALDERRAMA [place] CARMONAN [facility] RAD COUGH,COPD,CHEST CONGESTION [id number] 07/10/2015 08:47:00 07/10/2015 23:59:59 CLS Outpatient RUTHANN NEW DOLINE S [facility] RAD SCREENING [id number] 06/24/2014 10:00:00 06/24/2014 23:59:59 CLS Outpatient RUTHANN NEW DOLINE S [facility] RAD SCREENING [id number] 05/28/2014 08:40:00 05/28/2014 23:59:59 CLS Outpatient RUTHANN NEW DOLINE S [facility] RAD LBP,R LEG SCIATICA [id number] 04/29/2014 14:30:00 04/29/2014 23:59:59 CLS Outpatient JUSTIN DENSON M SATELLITE DISH TECHNICIAN [facility] RAD COUGH [id number] 12/26/2013 12:02:00 12/26/2013 23:59:59 CLS Outpatient JADNO HUSTON DO [facility] RAD DJD LT KNEE [id number] 06/22/2013 09:15:00 06/22/2013 23:59:59 CLS Outpatient RUTHANN NEW DOLINE S [facility] RAD SCREENING [id number] 09/17/2011 13:02:00 Document Registration [id number] 09/07/2011 14:42:00 Document Registration [id number] 01/23/2009 10:42:00 Document Registration
== END 2017-10-28 13:11 | disposition home or self-care (01) ==
LOC: EDUNIT# 11:23 → ER 11:25
DX: R07.89 Other chest pain (principal); J44.9 Chronic obstructive pulmonary disease, unspecified; E78.00 Pure hypercholesterolemia, unspecified; Z87.891 Personal history of nicotine dependence
CPT/HCPCS: 36415; 71045; 80053; 83735; 83874; 84484; 85025; 85610; 85730; 93005; 93041

== ENCOUNTER 2018-01-18 11:20 | Inpatient (IN) | payer MEDICARE ==
[~2018-01-18] VITALS: Ht 152.4 cm; Wt 49.9 kg
[~2018-01-18 11:20] MED LIST changes: +ACET-789 PO; +CEFU250T80 PO; +PRD20T PO
--- OUTSIDE RECORDS SUMMARY | 2018-01-18 11:28 | XMS REPORT | Continuity of Care Document ---
Author Author [facility] Organization [facility] Address Unknown Phone Unavailable Allergies Active Description Code Type Severity Reaction Onset Reported/Identified Relationship to Patient Clinical Status Yes No Known Drug Allergies [id number] Drug Allergy Unknown N/A 10/28/2017 Medications There is no data. Problems Date Dx Coded Attending Type Code Diagnosis Diagnosed By 09/17/2011 Ot V57.1 PHYSICAL THERAPY NEC 09/17/2011 Ot V58.43 AFTERCARE POST SURGERY INJURY/TRAUMA 07/14/2015 LAURA WISE DO S Ot Z12.39 08/04/2015 LAURA WISE DO S Ot Z12.39 12/24/2015 DINO VALDERRAMA TAKE AWAY ATTENDANT Ot J44.9 01/14/2016 DINO VALDERRAMA TAKE AWAY ATTENDANT Ot J44.9 CHRONIC OBSTRUCTIVE PULMONARY DISEASE, U 01/21/2016 DINO VALDERRAMA TAKE AWAY ATTENDANT Ot J44.9 CHRONIC OBSTRUCTIVE PULMONARY DISEASE, U 01/30/2016 FARHEEN WISE DOQUELINE S Ot E78.0 PURE HYPERCHOLESTEROLEMIA 01/30/2016 FARHEEN WISE DOQUELINE S Ot E86.0 DEHYDRATION 01/30/2016 FARHEEN WISE DOQUELINE S Ot J18.9 PNEUMONIA, UNSPECIFIED ORGANISM 01/30/2016 FARHEEN WISE DOQUELINE S Ot J20.9 ACUTE BRONCHITIS, UNSPECIFIED 01/30/2016 FARHEEN WISE DOQUELINE S Ot J44.0 CHRONIC OBSTRUCTIVE PULMON DISEASE W ACU 01/30/2016 FARHEEN WISE DOQUELINE S Ot J44.1 CHRONIC OBSTRUCTIVE PULMONARY DISEASE W 01/30/2016 FARHEEN WISE DOQUELINE S Ot J44.9 CHRONIC OBSTRUCTIVE PULMONARY DISEASE, U 01/30/2016 FARHEEN WISE DOQUELINE S Ot R09.02 HYPOXEMIA 01/30/2016 RUTHANN WISE DOLINE S Ot Z87.891 PERSONAL HISTORY OF NICOTINE DEPENDENCE 07/12/2016 Ot 786.2 COUGH 07/12/2016 RUTHANN WISE DOLINE S Ot V76.12 OTH SCREEN MAMMO-MALIGN [...] 07/12/2016 JUSTIN DENSON Ot 786.2 COUGH 07/12/2016 LAURA WISE DO S Ot 724.3 SCIATICA 07/12/2016 LAURA WISE DO S Ot V76.12 OTH SCREEN MAMMO-MALIGN NEOPLASM OF CL[place] 07/12/2016 RUTHANN WISE DOLINE S Ot Z12.39 ENCOUNTER FOR OTH SCREENING FOR MALIGNAN 07/12/2016 DINO VALDERRAMA APRN Ot J44.9 CHRONIC OBSTRUCTIVE PULMONARY DISEASE, U 07/12/2016 RUTHANN WISE DOLINE S Ot V76.12 OTH SCREEN MAMMO-MALIGN [...] JUSTIN DENSON Ot 786.2 COUGH 07/12/2016 FARHEEN WISE DOQUELINE S Ot 724.3 SCIATICA 07/12/2016 FARHEEN WISE DOQUELINE S Ot V76.12 OTH SCREEN MAMMO-MALIGN NEOPLASM OF [place] 07/12/2016 FARHEEN WISE DOQUELINE S Ot Z12.39 ENCOUNTER FOR OTH SCREENING FOR MALIGNAN 07/12/2016 DINO VALDERRAMA APRN Ot J44.9 CHRONIC OBSTRUCTIVE PULMONARY DISEASE, U 07/13/2016 LUCHONDER DO, LAURA S Ot Z12.31 ENCNTR SCREEN MAMMOGRAM FOR MALIGNANT NE 07/13/2016 ZE MERCER DO Ot J44.9 CHRONIC OBSTRUCTIVE PULMONARY DISEASE, U 07/14/2016 ORENDER DO, LAURA S Ot Z12.31 ENCNTR SCREEN MAMMOGRAM FOR MALIGNANT NE 07/19/2016 LUCHONDER DO, LAURA S Ot Z12.31 ENCNTR SCREEN MAMMOGRAM FOR MALIGNANT NE 07/22/2016 ORENDER DO, LAURA S Ot Z12.31 ENCNTR SCREEN MAMMOGRAM FOR MALIGNANT NE 08/02/2016 Ot 786.2 COUGH 08/02/2016 VIRGEN DO, LAURA S Ot V76.12 OTH SCREEN MAMMO-MALIGN NEOPLASM OF [place] 08/02/2016 JADON HUSTON DO Ot 715.36 LOC OSTEOARTH NOS-L/LEG 08/02/2016 JADON HUSTON DO Ot 717.2 DERANG POST MED MENISCUS 08/02/2016 JADON HUSTON DO Ot 719.06 JOINT EFFUSION-L/LEG 08/02/2016 JADON HUSTON DO Ot 719.46 JOINT PAIN-L/LEG 08/02/2016 JADON HUSTON DO Ot 727.09 SYNOVITIS NEC 08/02/2016 JUSTIN DENSON Ot 786.2 COUGH 08/02/2016 VIRGEN VÁZQUEZ, LAURA S Ot 724.3 SCIATICA 08/02/2016 FARHEEN WISE DOQUELINE S Ot V76.12 OTH SCREEN MAMMO-MALIGN NEOPLASM OF [place] 08/02/2016 VIRGEN VÁZQUEZ, LAURA S Ot Z12.39 ENCOUNTER FOR OTH SCREENING FOR MALIGNAN 08/02/2016 DINO VALDERRAMA APRN Ot J44.9 CHRONIC OBSTRUCTIVE PULMONARY DISEASE, U 08/02/2016 LUCHONDER DO, LAURA S Ot Z12.31 ENCNTR SCREEN MAMMOGRAM FOR [...] J44.9 CHRONIC OBSTRUCTIVE PULMONARY DISEASE, U 10/31/2016 EMILY PRITCHETT APRN Ot R06.02 SHORTNESS OF BREATH 03/07/2017 LAURA WISE DO S Ot V76.12 OTH SCREEN MAMMO-MALIGN NEOPLASM OF [place] 03/07/2017 JADON HUSTON DO Ot 715.36 LOC OSTEOARTH NOS-L/LEG 03/07/2017 JADON HUSTON DO Ot 717.2 DERANG POST MED MENISCUS 03/07/2017 JADON HUSTON DO Ot 719.06 JOINT EFFUSION-L/LEG 03/07/2017 JADON HUSTON DO Ot 719.46 JOINT PAIN-L/LEG 03/07/2017 JADON HUSTON DO Ot 727.09 SYNOVITIS NEC 03/07/2017 JUSTIN DENSON [employer] RN Ot 786.2 COUGH 03/07/2017 LAURA WISE DO S Ot 724.3 SCIATICA 03/07/2017 FARHEEN WISE DOQUELINE S Ot V76.12 OTH SCREEN MAMMO-MALIGN NEOPLASM OF [place] 03/07/2017 RUTHANN WISE DOLINE S Ot Z12.39 ENCOUNTER FOR OTH SCREENING FOR MALIGNAN 03/07/2017 DINO VALDERRAMA APRN Ot J44.9 CHRONIC OBSTRUCTIVE PULMONARY DISEASE, U 03/07/2017 LAURA WISE DO S Ot Z12.31 ENCNTR SCREEN MAMMOGRAM FOR MALIGNANT NE 03/07/2017 ZE MERCER DO Ot J44.9 CHRONIC OBSTRUCTIVE PULMONARY DISEASE, U 03/07/2017 EMILY PRITCHETT APRN Ot J44.9 CHRONIC OBSTRUCTIVE PULMONARY DISEASE, U 03/07/2017 EMILY PRITCHETT APRN Ot R06.02 SHORTNESS OF BREATH 03/08/2017 LAURA WISE DO Ot M17.11 UNILATERAL PRIMARY OSTEOARTHRITIS, RIGHT 03/31/2017 LAURA WISE DO Ot M17.11 UNILATERAL PRIMARY OSTEOARTHRITIS, RIGHT 04/08/2017 LAURA WISE DO Ot M17.11 UNILATERAL PRIMARY OSTEOARTHRITIS, RIGHT [...] 06/12/2017 Ot 486 06/12/2017 Ot 789.01 07/14/2017 LAURA WISE DO Ot Z12.31 ENCNTR SCREEN MAMMOGRAM FOR [...] Z87.891 PERSONAL HISTORY OF NICOTINE DEPENDENCE 08/08/2017 LAURA WISE DO Ot Z12.31 ENCNTR SCREEN MAMMOGRAM FOR MALIGNANT NE 08/12/2017 EMILY PRITCHETT APRN Ot J44.9 CHRONIC OBSTRUCTIVE PULMONARY DISEASE, U 08/12/2017 EMILY PRITCHETT TAKE AWAY ATTENDANT Ot R06.02 SHORTNESS OF BREATH 08/17/2017 EIMLY PRITCHETT TAKE AWAY ATTENDANT Ot J44.9 CHRONIC OBSTRUCTIVE PULMONARY DISEASE, U [...] OF MALIGNANT NEOPLASM, UN 09/16/2017 MIKY PALACIO MD Ot Z87.891 PERSONAL HISTORY OF NICOTINE DEPENDENCE 09/21/2017 MIKY PALACIO MD Ot K92.89 OTHER SPECIFIED DISEASES OF THE DIGESTIV 09/21/2017 MIKY PALACIO MD Ot Z98.890 OTHER SPECIFIED POSTPROCEDURAL STATES 09/29/2017 MIKY PALACIO MD, Ot K92.89 OTHER SPECIFIED DISEASES OF THE DIGESTIV 09/29/2017 MIKY PALACIO MD, Ot Z98.890 OTHER SPECIFIED POSTPROCEDURAL STATES 10/28/2017 KRISTEL JEFFERSON APRN Ot E78.00 PURE HYPERCHOLESTEROLEMIA, UNSPECIFIED 10/28/2017 KRISTEL JEFFERSON APRN Ot J44.9 CHRONIC OBSTRUCTIVE PULMONARY DISEASE, U 10/28/2017 KRISTEL JEFFERSON APRN Ot R07.89 OTHER CHEST PAIN 10/28/2017 KRISTEL JEFFERSON APRN Ot Z87.891 PERSONAL HISTORY OF NICOTINE DEPENDENCE 10/28/2017 EMILY PRITCHETT APRN, Ot J44.9 CHRONIC OBSTRUCTIVE PULMONARY DISEASE, U 10/28/2017 EMILY PRITCHETT APRN Ot R06.02 SHORTNESS OF BREATH Procedures There is no data. Results Test [...] plasma albumin measurement (mass/volume) 4.2 g/dL 3.2-4.5 Complete blood count (CBC) with automated white blood cell (WBC) differential - 10/28/17 11:39 Blood leukocytes automated count (number/volume) 5.5 10*3/uL 4.3-11.0 Blood erythrocytes automated count (number/volume) 4.06 10*6/uL 4.35-5.85 Venous blood hemoglobin measurement (mass/volume) 12.9 g/dL 11.5-16.0 Blood hematocrit (volume fraction) 38 % 35-52 Automated erythrocyte mean corpuscular volume 95 [foz_us] 80-99 Automated erythrocyte mean corpuscular hemoglobin (mass per erythrocyte) 32 pg 25-34 Automated erythrocyte mean corpuscular hemoglobin concentration measurement ( mass/volume) 34 g/dL 32-36 Automated erythrocyte distribution width ratio 12.6 % 10.0-14.5 Automated blood platelet count (count/volume) 196 10*3/uL 130-400 Automated blood platelet mean volume measurement 10.2 [foz_us] 7.4-10.4 Automated blood neutrophils/100 leukocytes 72 % 42-75 Automated blood lymphocytes/100 leukocytes 13 % 12-44 Blood monocytes/100 leukocytes 13 % 0-12 Automated blood eosinophils/100 leukocytes 2 % 0-10 Automated blood basophils/100 leukocytes 1 % 0-10 Blood neutrophils automated count (number/volume) 3.9 10*3 1.8-7.8 Blood lymphocytes automated count (number/volume) 0.7 10*3 1.0-4.0 Blood monocytes automated count (number/volume) 0.7 10*3 0.0-1.0 Automated eosinophil count 0.1 10*3/uL 0.0-0.3 Automated blood basophil count (count/volume) 0.0 10*3/uL 0.0-0.1 PT panel in platelet poor plasma by coagulation assay - 10/28/17 11:39 Prothrombin time (PT) in platelet poor plasma by coagulation assay 12.5 s 12.2-14.7 INR in platelet poor plasma or blood by coagulation assay 0.9 0.8-1.4 Activated partial thromboplastin time (aPTT) in platelet poor plasma bycoagulation assay - 10/28/17 11:39 Activated partial thromboplastin time (aPTT) in platelet poor plasma bycoagulation assay 28 s 24-35 Comprehensive metabolic panel - 10/28/17 11:39 Serum or plasma sodium measurement (moles/volume) 139 mmol/L 135-145 Serum or plasma potassium measurement (moles/volume) 4.2 mmol/L 3.6-5.0 Serum or plasma chloride measurement (moles/volume) 102 mmol/L 98-107 Carbon dioxide 27 mmol/L 21-32 Serum or plasma anion gap determination (moles/volume) 10 mmol/L 5-14 Serum or plasma urea nitrogen measurement (mass/volume) 9 mg/dL 7-18 Serum or plasma creatinine measurement (mass/volume) 0.79 mg/dL 0.60-1.30 Serum or plasma urea nitrogen/creatinine mass ratio 11 NRG Serum or plasma creatinine measurement with calculation of estimated glomerular filtration rate > NRG Serum or plasma glucose measurement (mass/volume) 82 mg/dL 70-105 Serum or plasma calcium measurement (mass/volume) 9.4 mg/dL 8.5-10.1 Serum or plasma total bilirubin measurement (mass/volume) 0.6 mg/dL 0.1-1.0 Serum or plasma alkaline phosphatase measurement (enzymatic activity/volume) 61 U/L 40-136 Serum or plasma aspartate aminotransferase measurement (enzymatic activity/ volume) 25 U/L 5-34 Serum or plasma alanine aminotransferase measurement (enzymatic activity/volume ) 21 U/L 0-55 Serum or plasma protein measurement (mass/volume) 7.2 g/dL 6.4-8.2 Serum or plasma albumin measurement (mass/volume) 4.3 g/dL 3.2-4.5 Magnesium - 10/28/17 11:39 Magnesium 1.9 mg/dL 1.8-2.4 Serum or plasma troponin i.cardiac measurement (mass/volume) - 10/28/17 11:39 Serum or plasma troponin i.cardiac measurement (mass/volume) < ng/ mL <0.30 Myoglobin, serum - 10/28/17 11:39 Myoglobin, serum 49.2 ng/mL 10.0-92.0 Encounters ACCT No. Visit Date/Time Discharge Status Pt. Type Provider Facility Loc./Unit Complaint [id number] 10/28/2017 11:25:00 10/28/2017 13:11:00 DIS Emergency KRISTEL JEFFERSON APRN [facility] ER CP [id number] 08/29/2017 12:07:00 08/29/2017 23:59:59 CLS Outpatient MIKY PALACIO MD [facility] RAD ABD PAIN [id number] 08/17/2017 09:52:00 08/17/2017 13:30:00 DIS Outpatient MIKY PALACIO MD [facility] ENDO SCREENING [id number] 08/12/2017 05:34:00 08/12/2017 10:19:00 DIS Outpatient MIKY PALACIO MD [facility] PREOP COLONOSCOPY [id number] 07/29/2017 12:17:00 07/29/2017 14:41:00 DIS Emergency NHUNG GARCIA MD [facility] ER ABD PAIN [id number] 07/14/2017 09:54:00 07/14/2017 23:59:59 CLS Outpatient LAURA WISE DO [facility] RAD SCREENING [id number] 04/12/2017 12:21:00 04/12/2017 23:59:59 CLS Outpatient JADON HUSTON DO [facility] RAD RT KNEE PAIN, STABLE MMT [id number] 03/07/2017 10:38:00 03/07/2017 23:59:59 CLS Outpatient VIRGEN RUTHANN VÁZQUEZLINE S [facility] RAD RIGHT KNEE PAIN [id number] 11/01/2016 10:15:00 11/01/2016 23:59:59 CLS Preadmit EMILY PRITCHETT APRN [facility] PULM COPD,SOB ON EXERTION [id number] 10/21/2016 08:00:00 10/31/2016 00:01:00 DIS Outpatient EMILY PRITCHETT TAKE AWAY ATTENDANT [facility] PULM COPD,SOB ON EXERTION [id number] 07/13/2016 09:59:00 07/13/2016 23:59:59 CLS Outpatient RUTHANN WISE DOLINE S [facility] RAD SCREENING [id number] 07/12/2016 13:42:00 07/12/2016 23:59:59 CLS Outpatient ZE MERCER DO [facility] RT COPD [id number] 01/28/2016 18:52:00 01/30/2016 12:05:00 DIS Inpatient RUTHANN WISE DOLINE S [facility] 4TH PNEUMONIA,HYPOXIA [id number] 12/23/2015 10:08:00 12/23/2015 23:59:59 CLS Outpatient DINO VALDERRAMA KADIE [facility] RAD COUGH,COPD,CHEST CONGESTION [id number] 07/10/2015 08:47:00 07/10/2015 23:59:59 CLS Outpatient LUCHOJARADER FARHEEN VÁZQUEZLAURA S [facility] RAD SCREENING [id number] 06/24/2014 10:00:00 06/24/2014 23:59:59 CLS Outpatient FARHEEN WISE DOQUELINE S [facility] RAD SCREENING [id number] 05/28/2014 08:40:00 05/28/2014 23:59:59 CLS Outpatient FARHEEN WISE DOQUELINE S [facility] RAD LBP,R LEG SCIATICA [id number] 04/29/2014 14:30:00 04/29/2014 23:59:59 CLS Outpatient JUSTIN DENSON [facility] RAD COUGH [id number] 12/26/2013 12:02:00 12/26/2013 23:59:59 CLS Outpatient ROBEL VÁZQUEZ JADON Mcmahan [facility] RAD DJD LT KNEE [id number] 06/22/2013 09:15:00 06/22/2013 23:59:59 CLS Outpatient LAURA WISE DO [facility] RAD SCREENING [id number] 09/17/2011 13:02:00 Document Registration [id number] 09/07/2011 14:42:00 Document Registration [id number] 01/23/2009 10:42:00 Document Registration 06/30/17 10/31/2017 15:29:57 10/31/2017 23:59:59 CLS Outpatient Laura Wise [id number] 01/11/2018 08:40:00 01/11/2018 23:59:59 CLS Outpatient IVANA MELO [facility]
[2018-01-18] MEDS ORDERED: ONDA4TAB11 PO (12:41)
[2018-01-18] MEDS ORDERED: NS IV 1000 ML 1,000 ML IV ONE (13:31)
[2018-01-18 13:41] LABS: BASOPHILS % (AUTO) 0 % (0-10); EOSINOPHILS % (AUTO) 0 % (0-10); HEMATOCRIT 45 % (35-52); HEMOGLOBIN 15.9 G/DL (11.5-16.0); LYMPHOCYTES # (AUTO) 1.5 X 10^3 (1.0-4.0); LYMPHOCYTES % (AUTO) 12 % (12-44); MEAN CORPUSCULAR HEMOGLOBIN 31 PG (25-34); MEAN CORPUSCULAR HGB CONC 35 G/DL (32-36); MEAN CORPUSCULAR VOLUME 88 FL (80-99); MEAN PLATELET VOLUME 12.3 FL (7.4-10.4); MONOCYTES # (AUTO) 1.4 X 10^3 (0.0-1.0); MONOCYTES % (AUTO) 11 % (0-12); NEUTROPHILS # (AUTO) 10.1 X 10^3 (1.8-7.8); NEUTROPHILS % (AUTO) 78 % (42-75); PLATELET COUNT 254 10^3/uL (130-400); RED BLOOD COUNT 5.11 10^6/uL (4.35-5.85)
[2018-01-18] MEDS ORDERED: ONDANSETRON 4 MG/2 ML (SDV) Z0FRAN IVP ONE (13:45)
--- NOTE | 2018-01-18 13:47 | ED GI ---
General Chief Complaint: Abdominal/GI Problems Stated Complaint: WEAK,VOMITING Nursing Triage Note: TO ROOM [facility] IN [place] ON TUESDAY HAS NOT BEEN ABLE TO EAT FOR 2 DAYS CAN DRINK WATER WITHOUT PROBLEM. HAS ZOFRAN AT HOME. Sepsis Screen: No Definite Risk Source of Information: Patient Exam Limitations: No Limitations History of Present Illness Date Seen by Provider: January 18, 2018 Time Seen by Provider: 13:46 Allergies and Home Medications Allergies Coded Allergies: No Known Drug Allergies (Verified , 10/28/17) Home Medications Acetaminophen with Codeine 1 Each Tablet, 1 EACH PO Q4H PRN for COUGH Prescribed by: KRISTEL JEFFERSON on 10/28/17 1238 Albuterol Sulfate 0.63 Mg/3 Ml Vial.neb, 0.63 MG IH DAILY, (Reported) Atorvastatin Calcium 20 Mg Tablet, 20 MG PO HS, (Reported) Cefuroxime Axetil 250 Mg Tablet, 250 MG PO BID Prescribed by: KRISTEL JEFFERSON on 10/28/17 1238 Multivitamin 1 Each Tablet, 1 TAB PO DAILY, (Reported) Prednisone 20 Mg Tab, 40 MG PO DAILY Prescribed by: KRISTEL JEFFERSON on 10/28/17 1238 Past Juttmcv-Wgxwxq-Byevmi Hx Patient Social History Alcohol Use: Denies Use Recreational Drug Use: No Smoking Status: Never a Smoker Former Smoker, Quit: February 04, 1996 Recent Foreign Travel: No Contact w/Someone Who Travel: No Recent Infectious Disease Expo: No Recent Hopitalizations: No Immunizations Up To Date Tetanus Booster (TDap): Unknown PED Vaccines UTD: No Date of Pneumonia Vaccine: Aug 12, 2015 Date of Influenza Vaccine: Jun 20, 2017 Seasonal Allergies Seasonal Allergies: No Past Medical History Surgeries: Yes (L knee scope) Orthopedic Respiratory: Yes (O2 2L NC AT NIGHT) COPD Currently Using CPAP: No Currently Using BIPAP: No Cardiac: Yes High Cholesterol, Valvular Heart Disease Neurological: No Reproductive Disorders: No Female Reproductive Disorders: Denies Sexually Transmitted Disease: No HIV/AIDS: No Gastrointestinal: No Musculoskeletal: Yes Arthritis Endocrine: No Loss of Vision: Bilateral Hearing Impairment: Denies Cancer: No Psychosocial: Yes (SLEEP DIFFICULTIES) Sleep Difficulties Integumentary: Yes (psoriasis on scalp) Psoriasis Blood Disorders: No Adverse Reaction/Blood Tranf: No Family Medical History No Pertinent Family Hx Physical Exam Vital Signs Vital Signs - First Documented 01/18/18 12:17 Temp 98.0 Pulse 68 Resp 18 B/P (MAP) 171/61 (97) Pulse Ox 95 Capillary Refill : Less Than 3 Seconds Progress/Results/Core Measures Results/Orders Lab Results Laboratory Tests Test 01/18/18 12:51 01/18/18 13:47 Range/Units White Blood Count 13.0 H 4.3-11.0 10^3/uL Red Blood Count 5.11 4.35-5.85 10^6/uL Hemoglobin 15.9 11.5-16.0 G/DL Hematocrit 45 35-52 % Mean Corpuscular Volume 88 80-99 FL Mean Corpuscular Hemoglobin 31 25-34 PG Mean Corpuscular Hemoglobin Concent 35 32-36 G/DL Red Cell Distribution Width 13.0 10.0-14.5 % Platelet Count 254 130-400 10^3/uL Mean Platelet Volume 12.3 H 7.4-10.4 FL Neutrophils (%) (Auto) 78 H 42-75 % Lymphocytes (%) (Auto) 12 12-44 % Monocytes (%) (Auto) 11 0-12 % Eosinophils (%) (Auto) 0 0-10 % Basophils (%) (Auto) 0 0-10 % Neutrophils # (Auto) 10.1 H 1.8-7.8 X 10^3 Lymphocytes # (Auto) 1.5 1.0-4.0 X 10^3 Monocytes # (Auto) 1.4 H 0.0-1.0 X 10^3 Eosinophils # (Auto) 0.0 0.0-0.3 10^3/uL Basophils # (Auto) 0.0 0.0-0.1 10^3/uL Sodium Level 136 135-145 MMOL/L Potassium Level 4.4 3.6-5.0 MMOL/L Chloride Level 101 98-107 MMOL/L Carbon Dioxide Level 25 21-32 MMOL/L Anion Gap 10 5-14 MMOL/L Blood Urea Nitrogen 28 H 7-18 MG/DL Creatinine 0.74 0.60-1.30 MG/DL Estimat Glomerular Filtration Rate > 60 BUN/Creatinine Ratio 38 Glucose Level 108 H 70-105 MG/DL Calcium Level 8.8 8.5-10.1 MG/DL Total Bilirubin 1.3 H 0.1-1.0 MG/DL Aspartate Amino Transf (AST/SGOT) 31 5-34 U/L Alanine Aminotransferase (ALT/SGPT) 16 0-55 U/L Alkaline Phosphatase 73 40-136 U/L C-Reactive Protein High Sensitivity 0.23 0.00-0.50 MG/DL Total Protein 6.1 L 6.4-8.2 GM/DL Albumin 3.9 3.2-4.5 GM/DL Lipase 12 8-78 U/L Urine Color YELLOW Urine Clarity SLIGHTLY CLOUDY Urine pH 6 5-9 Urine Specific [place] 1.025 H 1.016-1.022 Urine Protein 1+ H NEGATIVE Urine Glucose (UA) NEGATIVE NEGATIVE Urine Ketones 1+ H NEGATIVE Urine Nitrite NEGATIVE NEGATIVE Urine Bilirubin NEGATIVE NEGATIVE Urine Urobilinogen NORMAL NORMAL MG/DL Urine Leukocyte Esterase NEGATIVE NEGATIVE Urine RBC (Auto) NEGATIVE NEGATIVE Urine RBC NONE /HPF Urine WBC 0-2 /HPF Urine Squamous Epithelial Cells 0-2 /HPF Urine Crystals NONE /LPF Urine Bacteria NEGATIVE /HPF Urine Casts PRESENT /LPF Urine Hyaline Casts 0-2 H /LPF Urine Mucus NEGATIVE /LPF Urine Culture Indicated NO My Orders Orders - GERARDO PIKE Cbc With Automated Diff (01/18/18 13:31) Comprehensive Metabolic Panel (01/18/18 13:31) Hs C Reactive Protein (01/18/18 13:31) Lipase (01/18/18 13:31) Ua Culture If Indicated (01/18/18 13:31) Saline Lock/Iv-Start (01/18/18 13:31) Ns Iv 1000 Ml (Sodium Chloride 0.9%) (01/18/18 13:31) Ondansetron Injection (Zofran Injectio (01/18/18 13:45) Ct Abdomen/Pelvis W (01/18/18 13:58) Iohexol Injection (Omnipaque 350 Mg/Ml 1 (01/18/18 14:00) Ns (Ivpb) (Sodium Chloride 0.9%) (01/18/18 14:00) Piperacillin Sodium/Tazobactam (Zosyn Vi (01/18/18 15:30) Pantoprazole Injection (Protonix Injecti (01/18/18 15:30) Medications Given in ED Current Medications Medications Dose Ordered Sig/Jeyson Route Start Time Stop Time Status Last Admin Dose Admin Iohexol 100 ml ONCE ONCE IV 01/18/18 14:00 01/18/18 14:02 DC 01/18/18 14:22 100 ML Ondansetron HCl 4 mg ONCE ONCE IVP 01/18/18 13:45 01/18/18 13:46 DC 01/18/18 13:45 4 MG Sodium Chloride 250 ml ONCE ONCE IV 01/18/18 14:00 01/18/18 14:02 DC 01/18/18 14:22 80 ML Sodium Chloride 1,000 ml @ 0 mls/hr Q0M ONCE IV 01/18/18 13:31 01/18/18 13:32 DC 01/18/18 13:45 1,000 MLS/HR Vital Signs/I&O 01/18/18 12:17 Temp 98.0 Pulse 68 Resp 18 B/P (MAP) 171/61 (97) Pulse Ox 95 Blood Pressure Mean: 97 Departure Departure-Patient Inst. Referrals: NO,LOCAL PHYSICIAN (PCP) Primary Care Physician SHERRILL NEW DO (Family) Primary Care Physician GERARDO PIKE January 18, 2018 13:47
[2018-01-18 13:53] LABS: ALANINE AMINOTRANSFERASE 16 U/L (0-55); ALBUMIN 3.9 GM/DL (3.2-4.5); ALKALINE PHOSPHATASE 73 U/L (40-136); BILIRUBIN,TOTAL 1.3 MG/DL (0.1-1.0); BUN/CREATININE RATIO 38; CALCIUM 8.8 MG/DL (8.5-10.1); CARBON DIOXIDE 25 MMOL/L (21-32); CHLORIDE 101 MMOL/L (98-107); CREATININE SERUM 0.74 MG/DL (0.60-1.30); GFR ESTIMATED > 60; GLUCOSE 108 MG/DL (70-105); LIPASE 12 U/L (8-78); POTASSIUM 4.4 MMOL/L (3.6-5.0); SODIUM 136 MMOL/L (135-145); TOTAL PROTEIN 6.1 GM/DL (6.4-8.2)
[2018-01-18 13:54] LABS: BILIRUBIN,URINE NEGATIVE (NEGATIVE); CLARITY,URINE SLIGHTLY CLOUDY; COLOR,URINE YELLOW; GLUCOSE, URINE (UA) NEGATIVE (NEGATIVE); KETONES,URINE 1+ (NEGATIVE); LEUKOCYTE ESTERASE ,URINE NEGATIVE (NEGATIVE); NITRITE,URINE NEGATIVE (NEGATIVE); PH,URINE 6 (5-9); PROTEIN,URINE 1+ (NEGATIVE); UROBILINOGEN,URINE NORMAL (NORMAL)
[2018-01-18] MEDS ORDERED: IOHEXOL 350 MG/ML 100 ML (OMNIPAQUE 350) VIAL IV ONE (14:00)
[2018-01-18] MEDS ORDERED: NS 250 ML (IVPB) BAG IV ONE (14:00)
[2018-01-18 14:14] LABS: BACTERIA,URINE NEGATIVE /HPF; HYALINE CASTS, URINE 0-2 /LPF; SQUAMOUS EPITHELIAL CELL,UR 0-2 /HPF; WBC,URINE 0-2 /HPF
[2018-01-18] MEDS ORDERED: PIPERACILLIN SODIUM/TAZOBACTAM 4.5 GM in NS (IVPB) 100 ML IV ONE (15:30)
[2018-01-18] MEDS ORDERED: PANTOPRAZOLE 40 MG/10 ML (PROTONIX) VIAL IV ONE (15:30)
--- NOTE | 2018-01-18 15:32 | Diagnostic Imaging Report ---
PROCEDURE: CT abdomen and pelvis with contrast. TECHNIQUE: Multiple contiguous axial images were obtained through the abdomen and pelvis after administration of intravenous contrast. INDICATION: Vomiting, malaise. FINDINGS: The previous CT chest, abdomen and pelvis exam of 06/20/2011 failed to show any sign of an acute abnormality. On this exam, there is marked distention of the duodenum by fluid and gas. There is also distortion of the fat adjacent to the duodenum. The duodenum tapers to nearly a point of constriction at the level of the superior mesenteric artery. This appearance does raise the question of a so-called superior mesenteric artery syndrome. I do suspect that there is inflammation and edema of the duodenum. Furthermore, there is slightly increased density and thickening of the jejunum and the proximal ileum. This appearance does suggest enteritis. There is also some distortion of the pericolonic fat adjacent to the ascending colon. It is possible that there is an element of colitis present as well. The appendix is visualized and does not seem to be abnormally thickened. There is a small gallstone within the gallbladder, but the gallbladder wall does not appear to be thickened. The common bile duct is somewhat prominent, but there is no sign of an obstructive calculus or mass. The liver is of lower density than usually seen. 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 The liver does not appear to be enlarged and the proximal biliary tree is not abnormally dilated. The spleen, adrenals, kidneys, aorta, and inferior vena cava are unremarkable for an acute abnormality. There is no pelvic mass or free fluid collection noted. The uterus is quite small. The urinary bladder is grossly unremarkable. Bone windows show no sign of a fracture or of a destructive lesion. The lung bases are clear. IMPRESSION: 1. There is marked distention of the duodenum by fluid and gas. There is also some distortion of the fat adjacent to the duodenum and the combination of these findings does suggest duodenitis. 2. The duodenum tapers to a point of narrowing at the level of the superior mesenteric artery. This may be secondary to the so-called superior mesenteric artery syndrome. 3. There also appears to be enteritis of the jejunum and proximal ileum and colitis of the ascending colon. 4. There is no acute abnormality of the abdomen or pelvis noted otherwise. 5. These results were discussed with RANDI Padron. Dictated by: Dictated on workstation # [id number]
[2018-01-18 17:15] VITALS: BP 169/68
[2018-01-18] MEDS ORDERED: ONDANSETRON 4 MG/2 ML (SDV) Z0FRAN IV PRN (17:30)
[2018-01-18] MEDS ORDERED: KETOROLAC 15 MG/ML VIAL IV PRN (17:30)
[2018-01-18] MEDS ORDERED: raNItidine 50 MG/2 ML INJ (ZANTAC) IV PRN (17:30)
[2018-01-18] MEDS ORDERED: morphine INJ 4 MG/ML 1 ML (VIAL/SYRINGE) IV PRN (17:30)
[2018-01-18] MEDS ORDERED: CATHETER FLUSH 10 ML SYR IV PRN (17:30)
[2018-01-18] MEDS: NS W/KCL 20 MEQ/L 1,000 ML IV SCH (17:35)
[2018-01-18] MEDS ORDERED: PIPERACILLIN SODIUM/TAZOBACTAM 4.5 GM in NS (IVPB) 100 ML IV SCH (17:45)
--- NOTE | 2018-01-18 18:43 | CONSULTATION REPORT ---
DATE OF SERVICE: ATTENDING PRIMARY CARE PHYSICIAN: Laura Wise DO HISTORY OF PRESENT ILLNESS: The patient is a 72-year-old female who we have seen before in the past. When seen her initially 07/2017 in need of a screening colonoscopy. She had reported that she has had intermittent episodes of constipation in the past as well as crampy lower abdominal pain. She did not report any red blood per rectum nor any dark tarry stools. On 08/17/2017, she underwent a colonoscopy with findings of a 5 mm polyp at the rectosigmoid junction which was removed by snare polypectomy and found to be benign tubular adenoma. She presented today with nausea and vomiting for the past two days. She reports that eating solid foods is difficult and she will feel a pressure sensation and eventual nausea and vomiting. She does report drinking water does go down. She reports that she has had some episodes of gastroesophageal reflux disease; however, never severe. She does not report previous episodes of persistent nausea or vomiting. A CT scan was performed which did show a dilated proximal portion of the duodenum as well as a transition point around the third portion of the duodenum at the aortomesenteric window which may indicate a superior mesenteric artery syndrome or Geoffrey's syndrome. Cholelithiasis was also identified with slightly elevated total bilirubin. PAST MEDICAL HISTORY: COPD, myocardial infarction, CAD, hypercholesterolemia, psoriasis. PAST SURGICAL HISTORY: Cardiac catheterization x2. Left knee arthroscopy. ALLERGIES: No known drug allergies. MEDICATIONS: Albuterol nebulizer daily, atorvastatin 20 mg daily, prednisone 40 mg daily, cefuroxime 250 mg b.i.d. SOCIAL HISTORY: Previous smoke, quit in 1989, 5 cigarettes a day for approximately two years. Negative alcohol. FAMILY HISTORY: The patient is adopted; however, her biologic mother did have some form of cancer and hypertension, as well as two brothers with myocardial infarction. REVIEW OF SYSTEMS: This is a thin-looking female with a body mass index of 21. She does have exertional shortness of breath secondary to her COPD and does take oxygen at home. No new cough or sputum production. Nausea and vomiting for the past two days. No hematemesis or coffee ground emesis. History of constipation. No red blood per rectum, no dark tarry stools. No fevers or chills; however, she has had some weight loss over the past several years. All other review of systems negative. PHYSICAL EXAMINATION: VITAL SIGNS: Blood pressure 171/61, temperature 98.0, pulse 68, respirations 18, pulse ox 95% on two liters O2 nasal cannula. CHEST: Distant breath sounds and scattered wheezes bilaterally. HEART: Regular, no murmurs. EXTREMITIES: No lower extremity edema, negative Homans sign. HEENT: No scleral icterus. NECK: No cervical lymphadenopathy. ABDOMEN: Soft and nondistended. There is mild discomfort upon palpation of the epigastric region. No peritoneal signs. SKIN: Warm, dry. LABORATORY DATA: WBC 13.0, hemoglobin 15.9, hematocrit 45, platelets 254, BUN 28, creatinine 0.74. Total bilirubin 1.3, lipase 12. ASSESSMENT AND PLAN: A 72-year-old female with persistent nausea and vomiting for the past two days. This may be multifactorial. This may indicate gastritis, duodenitis or some other form of undiagnosed inflammatory bowel disease. There is also the question of a possible superior mesenteric artery syndrome or Geoffrey's syndrome causing compression of the third portion of the duodenum. The initial therapy for this is conservative with high caloric high fat supplemental nutrition as well as possible TPN to allow for increased fat deposition in the mesentery including the aortomesenteric window to allow for decompression of the duodenum. We will also continue with IV antibiotics for the possibility of bacterial overgrowth and duodenitis versus enteritis. She also does have cholelithiasis, which may also be contributing to her nausea and vomiting. We will continue to monitor this as well and if she does have more symptoms consistent with symptomatic cholelithiasis, she may benefit from laparoscopic cholecystectomy. Job ID: [id number] DocumentID: [id number] Dictated Date: 01/18/2018 17:50:43 Elevator Examiner And Adjuster Date: 01/18/2018 18:42:42 Dictated By: MIKY PALACIO MD [facility]
[2018-01-18] MEDS ORDERED: ONDANSETRON 4 MG/2 ML (SDV) Z0FRAN IVP PRN (19:15)
--- NOTE | 2018-01-18 19:28 | History & Physicial ---
History of Present Illness History of Present Illness Reason for visit/HPI This is a 72 year old female with a known history of COPD who was brought to the emergency room with a 4-5 day history of nausea and vomiting. She states she was in [place] over the weekend with friends and got sick after eating and has been sick ever since. She apparently went to the [facility] and got medicine but was having worsening abdominal pain so she was brought to the emergency room. She was very confused in the emergency room but was found to have a dilated duodenum indicating duodenitis vs superior mesenteric artery syndrome. She was also found to have cholelithiasis, and elevated WBC count and ketones in her urine. She will be admitted and given IVF rehydration as well as IV antibiotics and surgery consult. According to the friend that accompanied her, she has been sick for the past few weeks and has apparently been going to the [facility] for her care. She was treated for pneumonia recently at the [facility]. The friend also reports that she has been having worsening memory problems for quite some time. Date of Admission January 18, 2018 at 16:18 Date Seen by Provider: January 18, 2018 Time Seen by Provider: 19:21 I consulted on this patient on 01/18/18 19:20 Attending Physician Laura Wise DO Admitting Physician Laura Wise DO Consult Allergies and Home Medications Allergies Coded Allergies: No Known Drug Allergies (Verified , 10/28/17) Home Medications Acetaminophen with Codeine 1 Each Tablet, 1 EACH PO Q4H PRN for COUGH Prescribed by: KRISTEL JEFFERSON on 10/28/17 1238 Albuterol Sulfate 0.63 Mg/3 Ml Vial.neb, 0.63 MG IH DAILY, (Reported) Atorvastatin Calcium 20 Mg Tablet, 20 MG PO HS, (Reported) Cefuroxime Axetil 250 Mg Tablet, 250 MG PO BID Prescribed by: KRISTEL JEFFERSON on 10/28/17 1238 Multivitamin 1 Each Tablet, 1 TAB PO DAILY, (Reported) Prednisone 20 Mg Tab, 40 MG PO DAILY Prescribed by: KRISTEL JEFFERSON on 10/28/17 1238 Patient Home Medication List Home Medication List Reviewed: Yes Past Salkcht-Gomhax-Vwucdm Hx Patient Social History Alcohol Use: Denies Use Recreational Drug Use: No Smoking Status: Former Smoker Former Smoker, Quit: February 04, 1996 Physical Abuse Screen: No Sexual Abuse: No Recent Foreign Travel: No Contact w/other who traveled: No Recent Hopitalizations: No Recent Infectious Disease Expo: No Immunizations Up To Date Tetanus Booster (TDap): Unknown Pediatric: No Date of Pneumonia Vaccine: Aug 12, 2015 Date of Influenza Vaccine: Jun 20, 2017 Seasonal Allergies Seasonal Allergies: No Surgeries Yes (L knee scope) Orthopedic Respiratory Yes (O2 2L NC AT NIGHT) Currently Using CPAP: No Currently Using BIPAP: No Cardiovascular Yes High Cholesterol, Valvular Heart Disease Neurological No Reproductive System Hx Reproductive Disorders: No Sexually Transmitted Disease: No HIV/AIDS: No Female Reproductive Disorders: Denies Gastrointestinal No Musculoskeletal Yes Arthritis Endocrine History of Endocrine Disorders: No HEENT Loss of Vision: Bilateral Hearing Impairment: Denies Cancer No Psychosocial History of Psychiatric Problem: Yes (SLEEP DIFFICULTIES) Behavioral Health Disorders: Sleep Difficulties Integumentary History of Skin or Integumenta: Yes (psoriasis on scalp) Skin/Integumentary Disorders: Psoriasis Blood Transfusions History of Blood Disorders: No Adverse Reaction to a Blood Tr: No Family Medical History Significant Family History: No Pertinent Family Hx Constitutional: weakness EENTM: No see HPI, No no symptoms reported, No ear discharge, No hearing loss, No ear pain, No blurred vision, No double vision, No eye pain, No tearing, No vision loss, No dental problems, No hoarseness, No mouth pain, No mouth swelling , No epistaxis, No nose congestion, No nose pain, No throat pain, No throat swelling, No other Respiratory: cough Cardiovascular: No no symptoms reported, No see HPI, No chest pain, No edema, No Hx of Intervention; palpitations; No syncope, No vascular heart diseas, No other Gastrointestinal: constipation, heartburn, loss of appetite, nausea, vomiting Genitourinary: decreased output Skin: No no symptoms reported, No see HPI, No change in color, No change in hair/nails, No dryness, No hx of skin cancer, No lesions, No lumps, No pruritus , No rash, No other Psychiatric/Neurological: Weakness, Other (confusion and memory loss) Physical Exam Vital Signs Vital Signs - First Documented 01/18/18 01/18/18 12:17 17:15 Temp 98.0 Pulse 68 Resp 18 B/P (MAP) 171/61 (97) Pulse Ox 95 O2 Delivery Room Air Capillary Refill : Less Than 3 Seconds General Appearance: No Apparent Distress HEENT: Normal ENT Inspection Neck: Supple Respiratory: Lungs Clear Cardiovascular: Regular Rate, Rhythm, Gallop/S4 Gastrointestinal: Normal Bowel Sounds, Soft, Tenderness (epigastric) Rectal: Deferred Back: No CVA Tenderness Extremity: Non Tender, No Calf Tenderness, No Pedal Edema Neurologic/Psychiatric: Alert, Disoriented, Motor Weakness (diffuse) Skin: Warm/Dry Comments Laboratory Tests 01/18/18 12:51: White Blood Count 13.0H, Red Blood Count 5.11, Hemoglobin 15.9, Hematocrit 45, Mean Corpuscular Volume 88, Mean Corpuscular Hemoglobin 31, Mean Corpuscular Hemoglobin Concent 35, Red Cell Distribution Width 13.0, Platelet Count 254, Mean Platelet Volume 12.3H, Neutrophils (%) (Auto) 78H, Lymphocytes (%) (Auto) 12, Monocytes (%) (Auto) 11, Eosinophils (%) (Auto) 0, Basophils (%) (Auto) 0, Neutrophils # (Auto) 10.1H, Lymphocytes # (Auto) 1.5, Monocytes # (Auto) 1.4H, Eosinophils # (Auto) 0.0, Basophils # (Auto) 0.0, Sodium Level 136, Potassium Level 4.4, Chloride Level 101, Carbon Dioxide Level 25, Anion Gap 10, Blood Urea Nitrogen 28H, Creatinine 0.74, Estimat Glomerular Filtration Rate > 60, BUN /Creatinine Ratio 38, Glucose Level 108H, Calcium Level 8.8, Total Bilirubin 1.3H, Aspartate Amino Transf (AST/SGOT) 31, Alanine Aminotransferase (ALT/SGPT) 16, Alkaline Phosphatase 73, C-Reactive Protein High Sensitivity 0.23, Total Protein 6.1L, Albumin 3.9, Lipase 12 01/18/18 13:47: Urine Color YELLOW, Urine Clarity SLIGHTLY CLOUDY, Urine pH 6, Urine Specific [place] 1.025H, Urine Protein 1+H, Urine Glucose (UA) NEGATIVE, Urine Ketones 1+ H, Urine Nitrite NEGATIVE, Urine Bilirubin NEGATIVE, Urine Urobilinogen NORMAL, Urine Leukocyte Esterase NEGATIVE, Urine RBC (Auto) NEGATIVE, Urine RBC NONE, Urine WBC 0-2, Urine Squamous Epithelial Cells 0-2, Urine Crystals NONE, Urine Bacteria NEGATIVE, Urine Casts PRESENT, Urine Hyaline Casts 0-2H, Urine Mucus NEGATIVE, Urine Culture Indicated NO Assessment/Plan Assessment and Plan 1. 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 Intractable N/V--IV zofran prn, started on IV protonix, will add scopolamine patch if needed 3. Cholelithiasis--could be contributing to nausea and recent episode but conservative management now 4. Hypertension--start amlodopine 5. COPD--start SVNs prn 6. Confusion/Memory Loss--check CT scan of brain 7. Elevated WBC count--IV abx while waiting on culture results and monitor WBC count Admission Diagnosis Admission Status: Inpatient Order (span 2 midnights) Reason for Inpatient Admission: Will need at least 2 days of IVFs, IV abx, monitoring lab, surgical consult Clinical Quality Measures DVT/VTE Risk/Contraindication: Risk Factor Score Per Nursin RFS Level Per Nursing on Admit: 3=High LAURA WISE DO January 18, 2018 19:28
[2018-01-18] MEDS ORDERED: amLODIPine 5 MG (NORVASC) TAB PO NR (19:30)
[2018-01-18] MEDS ORDERED: RT-ALBUTEROL/IPRATROPIUM 3 ML (DUONEB) VIAL INH PRN (19:30)
[2018-01-18 20:00] VITALS: BP 139/64
--- NOTE | 2018-01-18 20:04 | Diagnostic Imaging Report ---
PROCEDURE: CT head without contrast. TECHNIQUE: Multiple contiguous axial images were obtained through the brain without the use of intravenous contrast. INDICATION: Confusion. FINDINGS: There is no intracranial hemorrhage, hydrocephalus, edema, mass, or mass effect. The basilar cisterns are patent, and the sulci are non-effaced. No abnormal extra-axial fluid collection. Chronic parenchymal calcification within or near the left tentorium noted. No acute or suspicious abnormality. No focal or generalized edema. IMPRESSION: No acute appearing abnormality. Dictated by: Dictated on workstation # [id number]
[2018-01-18] MEDS: ENOXAPARIN 40 MG/0.4 ML (LOVENOX) SYR SC SCH (20:23)
[2018-01-18] MEDS ORDERED: PANTOPRAZOLE 40 MG/10 ML (PROTONIX) VIAL IV SCH (21:00)
[2018-01-18] MEDS: TAZO IV SCH ×2 (22:37)
[2018-01-18] MEDS: NS IV SCH ×2 (22:37)
[2018-01-18] MEDS: PIPERACILLIN IV SCH ×2 (22:37)
[2018-01-19 00:06] VITALS: BP 133/50
[2018-01-19 04:07] VITALS: BP 141/60
[2018-01-19] MEDS: NS W/KCL 20 MEQ/L 1,000 ML IV SCH ×2 (04:15→05:24)
[2018-01-19] MEDS: NS IV SCH ×2 (05:23)
[2018-01-19] MEDS: TAZO IV SCH ×2 (05:23)
[2018-01-19] MEDS: PIPERACILLIN IV SCH ×2 (05:23)
[2018-01-19 06:25] LABS: BASOPHILS % (AUTO) 0 % (0-10); EOSINOPHILS # (AUTO) 0.1 10^3/uL (0.0-0.3); EOSINOPHILS % (AUTO) 1 % (0-10); HEMATOCRIT 36 % (35-52); HEMOGLOBIN 12.3 G/DL (11.5-16.0); LYMPHOCYTES # (AUTO) 1.5 X 10^3 (1.0-4.0); LYMPHOCYTES % (AUTO) 23 % (12-44); MEAN CORPUSCULAR HEMOGLOBIN 31 PG (25-34); MEAN CORPUSCULAR HGB CONC 34 G/DL (32-36); MEAN CORPUSCULAR VOLUME 90 FL (80-99); MEAN PLATELET VOLUME 11.5 FL (7.4-10.4); MONOCYTES % (AUTO) 15 % (0-12); NEUTROPHILS % (AUTO) 61 % (42-75); PLATELET COUNT 192 10^3/uL (130-400); RED BLOOD COUNT 3.99 10^6/uL (4.35-5.85); WHITE BLOOD COUNT 6.6 10^3/uL (4.3-11.0)
[2018-01-19 06:48] LABS: ALANINE AMINOTRANSFERASE 12 U/L (0-55); ALBUMIN 2.8 GM/DL (3.2-4.5); ALKALINE PHOSPHATASE 53 U/L (40-136); BILIRUBIN,TOTAL 1.1 MG/DL (0.1-1.0); BUN/CREATININE RATIO 33; CALCIUM 7.7 MG/DL (8.5-10.1); CARBON DIOXIDE 23 MMOL/L (21-32); CHLORIDE 113 MMOL/L (98-107); CREATININE SERUM 0.67 MG/DL (0.60-1.30); GFR ESTIMATED > 60; GLUCOSE 79 MG/DL (70-105); SODIUM 141 MMOL/L (135-145); TOTAL PROTEIN 4.4 GM/DL (6.4-8.2)
[2018-01-19 08:00] VITALS: BP 142/61
--- NOTE | 2018-01-19 08:45 | Diagnostic Imaging Report ---
Indication: Duodenitis Supine upright abdominal images were obtained. Lung bases are clear. There is no intraperitoneal free air. Bowel gas pattern is normal. Impression: No acute abnormalities in the abdomen. Dictated by: Dictated on workstation # [id number]
[2018-01-19] MEDS: PANTOPRAZOLE 40 MG/10 ML (PROTONIX) VIAL IV SCH (09:48)
[2018-01-19] MEDS ORDERED: FLUT16SP22 NS (10:10)
[2018-01-19] MEDS ORDERED: ALBU2.5V4 NEB (10:10)
[2018-01-19] MEDS ORDERED: RT-ALBUINH IH ×2 (10:15)
[2018-01-19 12:00] VITALS: BP 160/67
--- NOTE | 2018-01-19 12:46 | Progress Note (SOAP) ---
Subjective Date Seen by Provider: January 19, 2018 Time Seen by Provider: 12:42 Subjective/Events-last exam Fwup gastritis, duodenitis, COPD, Leukocytosis, elevated blood pressure, memory loss. Feeling much better. Denies abdominal pain or N/V. Wants to advance diet and go home. Objective Exam Vital Signs Date Time Temp Pulse Resp B/P (MAP) Pulse Ox O2 Delivery O2 Flow Rate FiO2 01/19/18 08:00 97.2 58 18 142/61 (88) 92 Room Air 01/19/18 07:47 95 Room Air 01/19/18 04:07 97.9 63 17 141/60 (87) 95 Room Air 01/19/18 00:06 97.8 69 16 133/50 (77) 94 Room Air 01/18/18 21:38 Room Air 01/18/18 20:00 97.5 59 18 139/64 (89) 95 Room Air 01/18/18 17:15 98.7 63 20 169/68 (101) 92 Room Air 01/18/18 17:08 69 18 145/63 98 I & O 01/19/18 07:00 Intake Total 100 ml Balance 100 ml Capillary Refill : Less Than 3 Seconds General Appearance: No Apparent Distress Neck: Supple Respiratory: Lungs Clear Cardiovascular: Regular Rate, Rhythm Gastrointestinal: normal bowel sounds, non tender, soft Extremity: Non Tender, No Calf Tenderness, No Pedal Edema Neurologic/Psychiatric: Alert, Disoriented (does not remember that I was here last night to see her) Skin: Normal Color, Warm/Dry Results Lab Laboratory Tests 01/18/18 12:51: White Blood Count 13.0H, Red Blood Count 5.11, Hemoglobin 15.9, Hematocrit 45, Mean Corpuscular Volume 88, Mean Corpuscular Hemoglobin 31, Mean Corpuscular Hemoglobin Concent 35, Red Cell Distribution Width 13.0, Platelet Count 254, Mean Platelet Volume 12.3H, Neutrophils (%) (Auto) 78H, Lymphocytes (%) (Auto) 12, Monocytes (%) (Auto) 11, Eosinophils (%) (Auto) 0, Basophils (%) (Auto) 0, Neutrophils # (Auto) 10.1H, Lymphocytes # (Auto) 1.5, Monocytes # (Auto) 1.4H, Eosinophils # (Auto) 0.0, Basophils # (Auto) 0.0, Sodium Level 136, Potassium Level 4.4, Chloride Level 101, Carbon Dioxide Level 25, Anion Gap 10, Blood Urea Nitrogen 28H, Creatinine 0.74, Estimat Glomerular Filtration Rate > 60, BUN /Creatinine Ratio 38, Glucose Level 108H, Calcium Level 8.8, Total Bilirubin 1.3H, Aspartate Amino Transf (AST/SGOT) 31, Alanine Aminotransferase (ALT/SGPT) 16, Alkaline Phosphatase 73, C-Reactive Protein High Sensitivity 0.23, Total Protein 6.1L, Albumin 3.9, Lipase 12 01/18/18 13:47: Urine Color YELLOW, Urine Clarity SLIGHTLY CLOUDY, Urine pH 6, Urine Specific [place] 1.025H, Urine Protein 1+H, Urine Glucose (UA) NEGATIVE, Urine Ketones 1+ H, Urine Nitrite NEGATIVE, Urine Bilirubin NEGATIVE, Urine Urobilinogen NORMAL, Urine Leukocyte Esterase NEGATIVE, Urine RBC (Auto) NEGATIVE, Urine RBC NONE, Urine WBC 0-2, Urine Squamous Epithelial Cells 0-2, Urine Crystals NONE, Urine Bacteria NEGATIVE, Urine Casts PRESENT, Urine Hyaline Casts 0-2H, Urine Mucus NEGATIVE, Urine Culture Indicated NO 01/19/18 06:00: White Blood Count 6.6, Red Blood Count 3.99L, Hemoglobin 12.3#, Hematocrit 36, Mean Corpuscular Volume 90, Mean Corpuscular Hemoglobin 31, Mean Corpuscular Hemoglobin Concent 34, Red Cell Distribution Width 13.0, Platelet Count 192, Mean Platelet Volume 11.5H, Neutrophils (%) (Auto) 61, Lymphocytes (%) (Auto) 23 , Monocytes (%) (Auto) 15H, Eosinophils (%) (Auto) 1, Basophils (%) (Auto) 0, Neutrophils # (Auto) 4.0, Lymphocytes # (Auto) 1.5, Monocytes # (Auto) 1.0, Eosinophils # (Auto) 0.1, Basophils # (Auto) 0.0, Sodium Level 141, Potassium Level 4.0, Chloride Level 113#H, Carbon Dioxide Level 23, Anion Gap 5, Blood Urea Nitrogen 22H, Creatinine 0.67, Estimat Glomerular Filtration Rate > 60, BUN /Creatinine Ratio 33, Glucose Level 79, Calcium Level 7.7L, Total Bilirubin 1.1H , Aspartate Amino Transf (AST/SGOT) 22, Alanine Aminotransferase (ALT/SGPT) 12, Alkaline Phosphatase 53, Total Protein 4.4L, Albumin 2.8L Assessment/Plan Assessment/Plan Assess & Plan/Chief Complaint 1. Acute gastritis, duodenitis--N/V and pain improved so will advance diet as per surgery 2. COPD--stable 3. Elevated BP--improved 4. Memory Loss--CT of brain negative, discussed with sister, Denisha, that is likely alzheimers and she states the family has concerns and is trying to come up with a mcfp plan for the patient as she has some family here but also has family in [place], sister defers SS consult at this time 5. Leukocytosis--improved, await finals on cultures Clinical Quality Measures Admission Status Admission Dx 1. 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 Intractable N/V--IV zofran prn, started on IV protonix, will add scopolamine patch if needed 3. Cholelithiasis--could be contributing to nausea and recent episode but conservative management now 4. Hypertension--start amlodopine 5. COPD--start SVNs prn 6. Confusion/Memory Loss--check CT scan of brain 7. Elevated WBC count--IV abx while waiting on culture results and monitor WBC count DVT/VTE Risk/Contraindication: Risk Factor Score Per Nursin RFS Level Per Nursing on Admit: 3=High SHERRILL NEW DO January 19, 2018 12:46 pm
[2018-01-19] MEDS: NS IV 1000 ML 1,000 ML IV SCH (13:11)
[2018-01-19] MEDS: PIPERACILLIN/TAZO 4.5 GM/D5W 100 ML IVPB IV SCH ×4 (14:31→21:40)
--- NOTE | 2018-01-19 15:32 | Progress Note (SOAP) ---
Subjective Date Seen by Provider: January 19, 2018 Time Seen by Provider: 15:00 Subjective/Events-last exam doing better. tolerating clear liquid and shakes. no nausea/vomiting. Objective Exam Vital Signs Date Time Temp Pulse Resp B/P (MAP) Pulse Ox O2 Delivery O2 Flow Rate FiO2 01/19/18 12:00 96.9 58 18 160/67 (98) 95 Room Air 01/19/18 08:00 97.2 58 18 142/61 (88) 92 Room Air 01/19/18 07:47 95 Room Air 01/19/18 04:07 97.9 63 17 141/60 (87) 95 Room Air 01/19/18 00:06 97.8 69 16 133/50 (77) 94 Room Air 01/18/18 21:38 Room Air 01/18/18 20:00 97.5 59 18 139/64 (89) 95 Room Air 01/18/18 17:15 98.7 63 20 169/68 (101) 92 Room Air 01/18/18 17:08 69 18 145/63 98 I & O 01/19/18 07:00 Intake Total 100 ml Balance 100 ml Capillary Refill : Less Than 3 Seconds General Appearance: No Apparent Distress HEENT: PERRL/EOMI Neck: Full Range of Motion Respiratory: Chest Non Tender, Lungs Clear, Normal Breath Sounds Cardiovascular: Regular Rate, Rhythm Gastrointestinal: normal bowel sounds, non tender, soft Extremity: Normal Capillary Refill Neurologic/Psychiatric: Alert, Oriented x3 Skin: Normal Color Lymphatic: No Adenopathy Results Lab Laboratory Tests 01/19/18 06:00: White Blood Count 6.6, Red Blood Count 3.99L, Hemoglobin 12.3#, Hematocrit 36, Mean Corpuscular Volume 90, Mean Corpuscular Hemoglobin 31, Mean Corpuscular Hemoglobin Concent 34, Red Cell Distribution Width 13.0, Platelet Count 192, Mean Platelet Volume 11.5H, Neutrophils (%) (Auto) 61, Lymphocytes (%) (Auto) 23 , Monocytes (%) (Auto) 15H, Eosinophils (%) (Auto) 1, Basophils (%) (Auto) 0, Neutrophils # (Auto) 4.0, Lymphocytes # (Auto) 1.5, Monocytes # (Auto) 1.0, Eosinophils # (Auto) 0.1, Basophils # (Auto) 0.0, Sodium Level 141, Potassium Level 4.0, Chloride Level 113#H, Carbon Dioxide Level 23, Anion Gap 5, Blood Urea Nitrogen 22H, Creatinine 0.67, Estimat Glomerular Filtration Rate > 60, BUN /Creatinine Ratio 33, Glucose Level 79, Calcium Level 7.7L, Total Bilirubin 1.1H , Aspartate Amino Transf (AST/SGOT) 22, Alanine Aminotransferase (ALT/SGPT) 12, Alkaline Phosphatase 53, Total Protein 4.4L, Albumin 2.8L Assessment/Plan Assessment/Plan Assess & Plan/Chief Complaint gastritis vs. duodenitis vs. mild SMA syndrome vs. cholelithiasis. doing better better with fluid hydration alone. tolerating clear liquids and shakes. will advance to dys3 diet and when can tolerate can d/c home. Clinical Quality Measures DVT/VTE Risk/Contraindication: Risk Factor Score Per Nursin RFS Level Per Nursing on Admit: 3=High MIKY PALACIO MD January 19, 2018 3:32 pm
[2018-01-19 16:30] VITALS: BP 144/65
[2018-01-19] MEDS: ENOXAPARIN 40 MG/0.4 ML (LOVENOX) SYR SC SCH (19:03)
[2018-01-19 20:15] VITALS: BP 123/70
[2018-01-20 00:59] VITALS: BP 124/58
[2018-01-20 04:50] VITALS: BP 130/57
[2018-01-20 05:53] LABS: BASOPHILS # (AUTO) 0.1 10^3/uL (0.0-0.1); BASOPHILS % (AUTO) 2 % (0-10); EOSINOPHILS # (AUTO) 0.2 10^3/uL (0.0-0.3); EOSINOPHILS % (AUTO) 3 % (0-10); HEMATOCRIT 33 % (35-52); HEMOGLOBIN 11.2 G/DL (11.5-16.0); LYMPHOCYTES # (AUTO) 1.3 X 10^3 (1.0-4.0); LYMPHOCYTES % (AUTO) 26 % (12-44); MEAN CORPUSCULAR HEMOGLOBIN 31 PG (25-34); MEAN CORPUSCULAR HGB CONC 34 G/DL (32-36); MEAN CORPUSCULAR VOLUME 91 FL (80-99); MEAN PLATELET VOLUME 11.8 FL (7.4-10.4); MONOCYTES # (AUTO) 0.8 X 10^3 (0.0-1.0); MONOCYTES % (AUTO) 16 % (0-12); NEUTROPHILS # (AUTO) 2.7 X 10^3 (1.8-7.8); NEUTROPHILS % (AUTO) 54 % (42-75); PLATELET COUNT 172 10^3/uL (130-400); RED BLOOD COUNT 3.61 10^6/uL (4.35-5.85); RED CELL DISTRIBUTION WIDTH 12.8 % (10.0-14.5); WHITE BLOOD COUNT 5.1 10^3/uL (4.3-11.0)
[2018-01-20] MEDS: PIPERACILLIN/TAZO 4.5 GM/D5W 100 ML IVPB IV SCH ×2 (06:09)
[2018-01-20 06:17] LABS: ALANINE AMINOTRANSFERASE 11 U/L (0-55); ALBUMIN 2.6 GM/DL (3.2-4.5); ALKALINE PHOSPHATASE 55 U/L (40-136); BILIRUBIN,TOTAL 0.6 MG/DL (0.1-1.0); BUN/CREATININE RATIO 26; CALCIUM 7.6 MG/DL (8.5-10.1); CARBON DIOXIDE 22 MMOL/L (21-32); CHLORIDE 113 MMOL/L (98-107); CREATININE SERUM 0.66 MG/DL (0.60-1.30); GFR ESTIMATED > 60; GLUCOSE 87 MG/DL (70-105); POTASSIUM 3.6 MMOL/L (3.6-5.0); SODIUM 142 MMOL/L (135-145)
[2018-01-20] MEDS: NS IV 1000 ML 1,000 ML IV SCH (07:32)
[2018-01-20] MEDS: PANTOPRAZOLE 40 MG/10 ML (PROTONIX) VIAL IV SCH (08:39)
[2018-01-20 08:43] VITALS: BP 119/58
[2018-01-20] MEDS ORDERED: PANT40TA2 PO (11:40)
[2018-01-20] MEDS ORDERED: DONE5TAB8 PO (11:40)
--- NOTE | 2018-01-20 11:44 | D/C HH Face to Face Order ---
D/C Face to Face Orders Instructions for Patient Patient Instructions/FollowUp: Fwup with me in [address] Valenzuela in 2weeks Physician to follow Patient: Billie Discharge Diet for Home: No Restrictions Patient Problems: Duodenitis Alzheimer's Dementia Patient Data-Allergies,Ht & Wt Patient Allergies: Coded Allergies: No Known Drug Allergies (Verified , 10/28/17) Height (Feet): 5 Height (Inches): 0.00 Weight (Pounds): 110 Weight (Ounces): 0.0 Home Health Need/Face to Face Date of Face to Face: January 20, 2018 Clinical Findings: Other-list in note Medication setup and management Check on vitals and overall wellbeing and safety at home Monitor for worsening condition I have seen Pt [id number]: Yes Discharged To: Home Diagnosis/Conditions: Alzheimer's Dementia Duodenitis Patient is Homebound due to: CognItive deficits Homebound Status Due to the above stated illness, injury or surgical procedure (medical condition or diagnosis) and associated clinical findings, the patient is homebound because of his/her inability to leave home except with aid of a supportive device and/or person AND leaving the home requires a considerable and taxing effort or is medically contraindicated. Pt req the following assistanc: Aid of another person Home Health Nursing Orders Home Health Services Order: Nursing Services Home Health Infusion Therapy Line Start Date: January 18, 2018 Line Start Time: 1251 Site Location: Wrist Certify Stmt I certify that this patient is under my care and that I, a nurse practitioner or a physician; a curriculum assistant principal working with me, had a face to face encounter that - meets the physician face to face encounter requirements with this patient as dated. SHERRILL NEW DO January 20, 2018 11:44 am
--- NOTE | 2018-01-20 11:59 | Progress Note (SOAP) ---
Subjective Date Seen by Provider: January 20, 2018 Time Seen by Provider: 11:45 Subjective/Events-last exam Patient reports doing well. Tolerating diet. No N/V. Having BMs. Denies any abdominal pain. Objective Exam Vital Signs Date Time Temp Pulse Resp B/P (MAP) Pulse Ox O2 Delivery O2 Flow Rate FiO2 01/20/18 08:43 96.5 63 20 119/58 (78) 96 Room Air 01/20/18 04:50 98.1 60 19 130/57 (81) 93 Room Air 01/20/18 00:59 98.2 57 20 124/58 (80) 94 Room Air 01/19/18 20:15 97.1 71 20 123/70 (87) 94 Room Air 01/19/18 16:30 97.2 67 20 144/65 (91) 93 Room Air 01/19/18 12:00 96.9 58 18 160/67 (98) 95 Room Air I & O 01/20/18 07:00 Intake Total 2520 ml Output Total 200 ml Balance 2320 ml Capillary Refill : Less Than 3 Seconds General Appearance: No Apparent Distress, WD/WN HEENT: PERRL/EOMI Neck: Full Range of Motion, Normal Inspection, Non Tender, Supple Respiratory: Chest Non Tender, Lungs Clear, Normal Breath Sounds, No Accessory Muscle Use, No Respiratory Distress Cardiovascular: Regular Rate, Rhythm, No Edema Gastrointestinal: normal bowel sounds, non tender, soft Extremity: Normal Capillary Refill, Normal Inspection, Normal Range of Motion Neurologic/Psychiatric: Alert, Depressed Affect Skin: Normal Color, Warm/Dry Results Lab Laboratory Tests 01/20/18 05:35: White Blood Count 5.1, Red Blood Count 3.61L, Hemoglobin 11.2L, Hematocrit 33L, Mean Corpuscular Volume 91, Mean Corpuscular Hemoglobin 31, Mean Corpuscular Hemoglobin Concent 34, Red Cell Distribution Width 12.8, Platelet Count 172, Mean Platelet Volume 11.8H, Neutrophils (%) (Auto) 54, Lymphocytes (%) (Auto) 26 , Monocytes (%) (Auto) 16H, Eosinophils (%) (Auto) 3, Basophils (%) (Auto) 2, Neutrophils # (Auto) 2.7, Lymphocytes # (Auto) 1.3, Monocytes # (Auto) 0.8, Eosinophils # (Auto) 0.2, Basophils # (Auto) 0.1, Sodium Level 142, Potassium Level 3.6, Chloride Level 113H, Carbon Dioxide Level 22, Anion Gap 7, Blood Urea Nitrogen 17, Creatinine 0.66, Estimat Glomerular Filtration Rate > 60, BUN/ Creatinine Ratio 26, Glucose Level 87, Calcium Level 7.6L, Total Bilirubin 0.6, Aspartate Amino Transf (AST/SGOT) 22, Alanine Aminotransferase (ALT/SGPT) 11, Alkaline Phosphatase 55, Total Protein 4.0L, Albumin 2.6L Assessment/Plan Assessment/Plan Assess & Plan/Chief Complaint gastritis vs. duodenitis vs. mild SMA syndrome vs. cholelithiasis. VSS. Tolerating diet. Continue with regular diet. May DC home. Follow up as needed. Clinical Quality Measures DVT/VTE Risk/Contraindication: Risk Factor Score Per Nursin RFS Level Per Nursing on Admit: 3=High TELLY GARCIA APRN January 20, 2018 11:59 am
[2018-01-21] MEDS ORDERED: POTA-51 PO (11:37)
[2018-01-21] MEDS ORDERED: FURO-124 PO (11:37)
--- NOTE | 2018-01-24 13:09 | Physician Query-Final Dx ---
ELISE RUIZ 01/24/18 1309: Final Diagnosis Give Final Diagnosis Please give Final Diagnosis SHERRILL NEW DO 01/25/18 1802: Final Diagnosis Give Final Diagnosis See Discharge Summary ELISE RUIZ January 24, 2018 13:09 SHERRILL NEW DO January 25, 2018 18:02
--- NOTE | 2018-01-25 17:51 | Discharge Summary ---
Diagnosis/Chief Complaint Date of Admission January 18, 2018 at 4:18 pm Date of Discharge January 20, 2018 at 1:15 pm Discharge Date: January 20, 2018 Discharge Diagnosis 1. Acute Duodenitis/Gastritis--improved 2. Intractable N/V--resolved 3. Cholelithiasis-- 4. Hypertension--stable 5. COPD--stable 6. 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 Leukocytosis--resolved, likely from dehydration Reason Hospital Visit This is a 72 year old female with a known history of COPD who was brought to the emergency room with a 4-5 day history of nausea and vomiting. She states she was in [place] over the weekend with friends and got sick after eating and has been sick ever since. She apparently went to the [facility] and got medicine but was having worsening abdominal pain so she was brought to the emergency room. She was very confused in the emergency room but was found to have a dilated duodenum indicating duodenitis vs superior mesenteric artery syndrome. She was also found to have cholelithiasis, and elevated WBC count and ketones in her urine. She will be admitted and given IVF rehydration as well as IV antibiotics and surgery consult. According to the friend that accompanied her, she has been sick for the past few weeks and has apparently been going to the [facility] for her care. She was treated for pneumonia recently at the [facility]. The friend also reports that she has been having worsening memory problems for quite some time. Discharge Summary Hospital Course Hospital Course This is a 72 year old female with a known history of COPD who was brought to the emergency room with a 4-5 day history of nausea and vomiting. She states she was in [place] over the weekend with friends and got sick after eating and has been sick ever since. She apparently went to the [facility] and got medicine but was having worsening abdominal pain so she was brought to the emergency room. She was very confused in the emergency room but was found to have a dilated duodenum indicating duodenitis vs superior mesenteric artery syndrome. She was also found to have cholelithiasis, and elevated WBC count and ketones in her urine. She will be admitted and given IVF rehydration as well as IV antibiotics and surgery consult. According to the friend that accompanied her, she has been sick for the past few weeks and has apparently been going to the [facility] for her care. She was treated for pneumonia recently at the [facility]. The friend also reports that she has been having worsening memory problems for quite some time. She was given IVFs and clear liquids initially. Following her admission she had no further nausea or vomiting and no further abdominal pain. Her diet was advanced and she tolerated this with no return of nausea or vomiting or abdominal pain. She underwent a CT scan of the brain due to her memory issues which was negative. I discussed both with the patient and her sister, Denisha, that the patient likely has early onset alzheimer's dementia and the patient was agreeable to starting medications. She did require one dose of amlodopine for her blood pressure on admission but then her blood pressure stabilized. She agreed to homehealth on discharge but it was also discussed with her family that assisted living or senior living care needed to be looked into as her memory worsened. Procedures None. Discharge Physical Examination Allergies: Coded Allergies: No Known Drug Allergies (Verified , 10/28/17) Vitals & I&Os Vital Signs Date Time Temp Pulse Resp B/P (MAP) Pulse Ox O2 Delivery O2 Flow Rate FiO2 01/20/18 08:43 96.5 63 20 119/58 (78) 96 Room Air General Appearance: Alert, Oriented X3, Cooperative, No Acute Distress Respiratory: Clear to Auscultation Cardiovascular: Regular Rate Abdominal: Normal Bowel Sounds, Soft, No Tenderness Psych/Mental Status: Mental Status NL (except for some memory issues) Discharge Home Medications Reviewed and agree with Discharge Medication list on patient's Discharge Instruction sheet Instructions to Patient/Family Please see electronic discharge instructions given to patient. Clinical Quality Measures DVT/VTE Risk/Contraindication: Risk Factor Score Per Nursin RFS Level Per Nursing on Admit: 3=High SHERRILL NEW DO January 25, 2018 5:51 pm
== END 2018-01-20 13:15 | disposition home health service (06) | DRG 392 ==
LOC: EDUNIT# 11:20 → ER 11:24 → 4TH 16:18
PROVIDERS: ADMIT Family Medicine; ATTEND Family Medicine
DX: K29.80 Duodenitis without bleeding (principal); K29.00 Acute gastritis without bleeding; K55.1 Chronic vascular disorders of intestine; K80.20 Calculus of gallbladder without cholecystitis without obstruction; J44.9 Chronic obstructive pulmonary disease, unspecified; I25.10 Atherosclerotic heart disease of native coronary artery without angina pectoris; I10 Essential (primary) hypertension; E78.00 Pure hypercholesterolemia, unspecified; D72.829 Elevated white blood cell count, unspecified; R82.4 Acetonuria; R41.0 Disorientation, unspecified; R41.3 Other amnesia; G47.9 Sleep disorder, unspecified; M19.91 Primary osteoarthritis, unspecified site; L40.9 Psoriasis, unspecified; K21.9 Gastro-esophageal reflux disease without esophagitis; R63.4 Abnormal weight loss; I25.2 Old myocardial infarction; Z87.891 Personal history of nicotine dependence; Z99.81 Dependence on supplemental oxygen; Z68.21 Body mass index [BMI] 21.0-21.9, adult; Z87.01 Personal history of pneumonia (recurrent)
CPT/HCPCS: 36415; 70450; 74019; 74177; 80053; 81000; 83690; 85025; 86141; 94760; 96361; 96365; 96375

== ENCOUNTER → 2018-05-24 | Outpatient (CLI) | payer MEDICARE ==
[~2018-05-24] MED LIST changes: +ALBU2.5V4 NEB; +AMOX1TAB11 PO; +DONE10TA41 PO; +DONE5TAB8 PO; +FLUT12AE4 IH; +FLUT16SP22 NS; +FURO-124 PO; +MEMA5TAB PO; +MONT10TA24 PO; +ONDA4TAB11 PO; +PANT40TA2 PO; +PANT40TA3 PO; +POTA-51 PO; +PRD10T PO; +RT-ALBUINH IH
--- NOTE | 2018-05-24 11:55 | Diagnostic Imaging Report ---
PROCEDURE: CT chest without contrast. TECHNIQUE: Multiple contiguous axial images were obtained through the chest without the use of intravenous contrast. INDICATION: COPD and hypoxemia requiring supplemental oxygen. Most recent chest CT for comparison 06/20/2011. FINDINGS: No lung mass or acute pulmonary infiltrate. Few tiny 2-3 mm subpleural micronodules chronic and benign. No effusion or pneumothorax. No evidence for lymphadenopathy. The calcified aorta nonaneurysmal. Visualized upper abdomen nonacute. No thoracic effusion. No pneumothorax. IMPRESSION: No acute or suspicious abnormality identified. Dictated by: Dictated on workstation # [id number]
== END ==
LOC: RAD 10:51
PROVIDERS: ATTEND Nurse Practitioner Family
DX: J44.9 Chronic obstructive pulmonary disease, unspecified (principal); J30.9 Allergic rhinitis, unspecified; R09.02 Hypoxemia
CPT/HCPCS: 71250

== ENCOUNTER 2019-06-01 11:05 | Emergency (ER) | payer MEDICARE ==
[~2019-06-01] VITALS: Ht 157 cm; Wt 109.0 kg
--- NOTE | 2019-06-01 12:10 | ED Lower Extremity ---
General Chief Complaint: Lower Extremity Stated Complaint: LEFT LEG/BOTH FEET SWELLING Nursing Triage Note: Pt ambulates to triage with C/O bilat ankle swelling x 2 wks. Left ankle is red and warm to touch. Pt denies any recent injuries to area. Nursing Sepsis Screen: No Definite Risk Source: patient Exam Limitations: no limitations History of Present Illness Date Seen by Provider: Jun 01, 2019 Time Seen by Provider: 12:09 Initial Comments Left leg redness and swelling for about 2 weeks no known injury Onset: other Severity: moderate Pain/Injury Location: left leg, left foot Method of Injury: fell Modifying Factors: Worse With Movement Allergies and Home Medications Allergies Coded Allergies: No Known Drug Allergies (Verified , 10/28/17) Home Medications Albuterol Sulfate 1 Puff Puff, 2 PUFF IH Q4H PRN for SHORTNESS OF BREATH, (Reported) 1 PUFF = 90 MCG Amoxicillin/Potassium Clav 1 Each Tablet, 500 MG PO BID WITH MEALS Prescribed by: SHERRILL NEW on 05/02/182041 Donepezil HCl 10 Mg Tablet, 10 MG PO HS, (Reported) Fluticasone/Salmeterol 12 Gm Hfa.aer.ad, 2 PUFF IH BID@08,20 Prescribed by: SHERRILL NEW on 05/02/182041 Memantine HCl 5 Mg Tablet, 5 MG PO DAILY Prescribed by: SHERRILL NEW on 05/02/182041 Montelukast Sodium 10 Mg Tablet, 10 MG PO HS Prescribed by: SHERRILL NEW on 05/02/182041 Pantoprazole Sodium 40 Mg Tablet.dr, 40 MG PO DAILY, (Reported) Prednisone 10 Mg Tab, 40 MG PO ONCE then 3 tabs x1 day then 2 tabs x1 day then 1 tab x1 day Prescribed by: SHERRILL NEW on 05/02/182041 Patient Home Medication List Home Medication List Reviewed: Yes Review of Systems Constitutional: see HPI EENTM: see HPI Respiratory: no symptoms reported Cardiovascular: no symptoms reported Genitourinary: no symptoms reported Musculoskeletal: see HPI Skin: no symptoms reported Psychiatric/Neurological: No Symptoms Reported Past Xtkknck-Wgxznr-Yogiun Hx Patient Social History Alcohol Use: Denies Use Recreational Drug Use: No Smoking Status: Never a Smoker Former Smoker, Quit: February 04, 1996 2nd Hand Smoke Exposure: No Recent Foreign Travel: No Contact w/Someone Who Travel: No Recent Infectious Disease Expo: No Recent Hopitalizations: No Physical Abuse: No Sexual Abuse: No Mistreated: No Fear: No Immunizations Up To Date Tetanus Booster (TDap): Unknown PED Vaccines UTD: No Date of Pneumonia Vaccine: Aug 12, 2015 Date of Influenza Vaccine: Jun 20, 2017 Seasonal Allergies Seasonal Allergies: No Past Medical History Surgeries: Yes (L knee scope) Orthopedic Respiratory: Yes Pneumonia, COPD Currently Using CPAP: No Currently Using BIPAP: No Cardiac: Yes High Cholesterol, Valvular Heart Disease Neurological: Yes Dementia Reproductive Disorders: No Female Reproductive Disorders: Denies Sexually Transmitted Disease: No HIV/AIDS: No Genitourinary: No Gastrointestinal: No Musculoskeletal: No Arthritis Endocrine: No HEENT: No Loss of Vision: Bilateral Hearing Impairment: Denies Cancer: No Psychosocial: Yes (SLEEP DIFFICULTIES) Sleep Difficulties Integumentary: Yes (psoriasis on scalp) Psoriasis Blood Disorders: No Adverse Reaction/Blood Tranf: No Family Medical History No Pertinent Family Hx Physical Exam Vital Signs Vital Signs - First Documented 06/01/19 11:23 Temp 36.5 Pulse 56 Resp 17 B/P (MAP) 147/78 (101) Pulse Ox 98 O2 Delivery Room Air Capillary Refill : Less Than 3 Seconds Height, Weight, BMI Height: 4'11.00" Weight: 124lbs. 6.0oz. 56.089427ty; 44.00 BMI Method:Stated General Appearance: WD/WN, no apparent distress HEENT: PERRL/EOMI, normal ENT inspection Respiratory: no respiratory distress, no accessory muscle use Hips: bilateral hip non-tender, bilateral hip normal inspection, bilateral hip normal range of motion Legs: left leg other (left leg is erythematous swollen and tender from the mid calf distally) Knees: bilateral knee non-tender, bilateral knee normal inspection, bilateral knee normal range of motion Ankles: bilateral ankle non-tender, bilateral ankle normal inspection, bilateral ankle normal range of motion Feet: bilateral foot non-tender, bilateral foot normal inspection, bilateral foot normal range of motion Neurologic/Psychiatric: alert, normal mood/affect, oriented x 3 (just blood) Skin: normal color, warm/dry Progress/Results/Core Measures Results/Orders Lab Results Laboratory Tests Test 06/01/19 12:18 Range/Units White Blood Count 5.2 4.3-11.0 10^3/uL Red Blood Count 4.07 L 4.35-5.85 10^6/uL Hemoglobin 12.8 11.5-16.0 G/DL Hematocrit 39 35-52 % Mean Corpuscular Volume 96 80-99 FL Mean Corpuscular Hemoglobin 31 25-34 PG Mean Corpuscular Hemoglobin Concent 33 32-36 G/DL Red Cell Distribution Width 13.5 10.0-14.5 % Platelet Count 188 130-400 10^3/uL Mean Platelet Volume 11.6 H 7.4-10.4 FL Neutrophils (%) (Auto) 51 42-75 % Lymphocytes (%) (Auto) 35 12-44 % Monocytes (%) (Auto) 11 0-12 % Eosinophils (%) (Auto) 3 0-10 % Basophils (%) (Auto) 1 0-10 % Neutrophils # (Auto) 2.7 1.8-7.8 X 10^3 Lymphocytes # (Auto) 1.8 1.0-4.0 X 10^3 Monocytes # (Auto) 0.6 0.0-1.0 X 10^3 Eosinophils # (Auto) 0.1 0.0-0.3 10^3/uL Basophils # (Auto) 0.0 0.0-0.1 10^3/uL Sodium Level 138 135-145 MMOL/L Potassium Level 4.5 3.6-5.0 MMOL/L Chloride Level 101 98-107 MMOL/L Carbon Dioxide Level 31 21-32 MMOL/L Anion Gap 6 5-14 MMOL/L Blood Urea Nitrogen 12 7-18 MG/DL Creatinine 0.82 0.60-1.30 MG/DL Estimat Glomerular Filtration Rate > 60 BUN/Creatinine Ratio 15 Glucose Level 82 70-105 MG/DL Calcium Level 8.9 8.5-10.1 MG/DL My Orders Orders - KRISTEL JEFFERSON APRN Cbc With Automated Diff (06/01/19 12:05) Basic Metabolic Panel (06/01/19 12:05) Us Venous Lower Ext Lt (06/01/19 12:06) Vital Signs/I&O 06/01/19 11:23 Temp 36.5 Pulse 56 Resp 17 B/P (MAP) 147/78 (101) Pulse Ox 98 O2 Delivery Room Air Blood Pressure Mean: 101 Departure Impression Primary Impression: Cellulitis Qualified Codes: L03.116 - Cellulitis of left lower limb Disposition: 01 HOME, SELF-CARE Condition: Stable Departure-Patient Inst. Decision time for Depature: 12:59 Referrals: NO,LOCAL PHYSICIAN (PCP/Family) Primary Care Physician Patient Instructions: Cellulitis (Skin Infection), Adult (DC) Add. Discharge Instructions: 1. Return to ER for any concerns 2. Antibiotics as directed 3. Follow-up with your doctor next week All discharge instructions reviewed with patient and/or family. Voiced understanding. Scripts Amoxicillin/Potassium Clav (Augmentin 875-125 Tablet) 1 Each Tablet 1 EACH PO BID, #14 TAB 0 Refills Prov: KRISTEL JEFFERSON APRN 06/01/19 KRISTEL JEFFERSON APRN Jun 01, 2019 12:09
[2019-06-01 12:32] LABS: BASOPHILS % (AUTO) 1 % (0-10); EOSINOPHILS # (AUTO) 0.1 10^3/uL (0.0-0.3); EOSINOPHILS % (AUTO) 3 % (0-10); HEMATOCRIT 39 % (35-52); HEMOGLOBIN 12.8 G/DL (11.5-16.0); LYMPHOCYTES # (AUTO) 1.8 X 10^3 (1.0-4.0); LYMPHOCYTES % (AUTO) 35 % (12-44); MEAN CORPUSCULAR HEMOGLOBIN 31 PG (25-34); MEAN CORPUSCULAR HGB CONC 33 G/DL (32-36); MEAN CORPUSCULAR VOLUME 96 FL (80-99); MEAN PLATELET VOLUME 11.6 FL (7.4-10.4); MONOCYTES # (AUTO) 0.6 X 10^3 (0.0-1.0); MONOCYTES % (AUTO) 11 % (0-12); NEUTROPHILS # (AUTO) 2.7 X 10^3 (1.8-7.8); NEUTROPHILS % (AUTO) 51 % (42-75); PLATELET COUNT 188 10^3/uL (130-400); RED CELL DISTRIBUTION WIDTH 13.5 % (10.0-14.5); WHITE BLOOD COUNT 5.2 10^3/uL (4.3-11.0)
[2019-06-01 12:56] LABS: BUN/CREATININE RATIO 15; CALCIUM 8.9 MG/DL (8.5-10.1); CARBON DIOXIDE 31 MMOL/L (21-32); CHLORIDE 101 MMOL/L (98-107); CREATININE SERUM 0.82 MG/DL (0.60-1.30); GFR ESTIMATED > 60; GLUCOSE 82 MG/DL (70-105); POTASSIUM 4.5 MMOL/L (3.6-5.0); SODIUM 138 MMOL/L (135-145)
[2019-06-01] MEDS ORDERED: AMOX-358 PO (13:00)
[2019-06-01 13:06] VITALS: BP 140/81
--- NOTE | 2019-06-01 13:07 | Diagnostic Imaging Report ---
EXAMINATION: US Lower Extremity Venous Duplex Left. TECHNIQUE: Multiple real-time grayscale images were obtained over the left lower extremity in various projections. Additional spectral analysis and color Doppler duplex images were also obtained. HISTORY: Swelling FINDINGS: No comparison available. The left common femoral vein, deep femoral vein, superficial femoral vein and popliteal vein are patent with normal clinton scale and doppler appearance. There is normal respiratory variation and augmentation. IMPRESSION: 1. No DVT of the left lower extremity. Dictated by: Dictated on workstation # [id number]
== END 2019-06-01 13:05 | disposition home or self-care (01) ==
LOC: EDUNIT# 11:05 → ER 11:08
DX: L03.116 Cellulitis of left lower limb (principal); J44.9 Chronic obstructive pulmonary disease, unspecified; F03.90 Unspecified dementia, unspecified severity, without behavioral disturbance, psychotic disturbance, mood disturbance, and anxiety; E78.00 Pure hypercholesterolemia, unspecified; Z79.52 Long term (current) use of systemic steroids; Z87.891 Personal history of nicotine dependence
CPT/HCPCS: 36415; 80048; 85025

== ENCOUNTER 2019-07-28 16:18 | Emergency (ER) | payer MEDICARE ==
[~2019-07-28] VITALS: Ht 145 cm; Wt 51.6 kg
[~2019-07-28 16:18] MED LIST changes: +AMOX-358 PO
[2019-07-28 16:53] LABS: BASOPHILS % (AUTO) 0 % (0-10); EOSINOPHILS # (AUTO) 0.1 10^3/uL (0.0-0.3); EOSINOPHILS % (AUTO) 2 % (0-10); HEMATOCRIT 40 % (35-52); HEMOGLOBIN 12.8 G/DL (11.5-16.0); LYMPHOCYTES # (AUTO) 1.3 X 10^3 (1.0-4.0); LYMPHOCYTES % (AUTO) 24 % (12-44); MEAN CORPUSCULAR HEMOGLOBIN 31 PG (25-34); MEAN CORPUSCULAR HGB CONC 32 G/DL (32-36); MEAN CORPUSCULAR VOLUME 97 FL (80-99); MEAN PLATELET VOLUME 11.3 FL (7.4-10.4); MONOCYTES # (AUTO) 0.6 X 10^3 (0.0-1.0); MONOCYTES % (AUTO) 10 % (0-12); NEUTROPHILS # (AUTO) 3.5 X 10^3 (1.8-7.8); NEUTROPHILS % (AUTO) 64 % (42-75); PLATELET COUNT 197 10^3/uL (130-400); RED CELL DISTRIBUTION WIDTH 13.7 % (10.0-14.5); WHITE BLOOD COUNT 5.4 10^3/uL (4.3-11.0)
[2019-07-28 17:19] LABS: ALANINE AMINOTRANSFERASE 19 U/L (0-55); ALBUMIN 4.2 GM/DL (3.2-4.5); ALKALINE PHOSPHATASE 72 U/L (40-136); BILIRUBIN,TOTAL 0.8 MG/DL (0.1-1.0); BUN/CREATININE RATIO 11; CALCIUM 8.9 MG/DL (8.5-10.1); CARBON DIOXIDE 29 MMOL/L (21-32); CHLORIDE 103 MMOL/L (98-107); CREATININE SERUM 0.84 MG/DL (0.60-1.30); GFR ESTIMATED > 60; GLUCOSE 84 MG/DL (70-105); POTASSIUM 4.2 MMOL/L (3.6-5.0); SODIUM 142 MMOL/L (135-145); TOTAL PROTEIN 6.5 GM/DL (6.4-8.2)
--- NOTE | 2019-07-28 17:19 | ED General ---
General Chief Complaint: Lower Extremity Stated Complaint: LEGS SWELLING Nursing Triage Note: PT AMBULATE TO TRIAGE WITH C/O BILAT LEG SWELLING STARTING TODAY. PT WAS SEEN WITHIN THE LAST 2-4 MONTHS FOR THIS ISSUE. Nursing Sepsis Screen: No Definite Risk Source of Information: Patient, Family Exam Limitations: No Limitations History of Present Illness Date Seen by Provider: Jul 28, 2019 Time Seen by Provider: 16:53 Initial Comments Here with report of bilateral lower extremity edema. Patient and family concerned because she had episodes similar a few months back and had an infection. It was different that time as it was all in the right leg swollen. Today both legs are equally swollen and there is some redness. No fever or chills. No injuries noted or reported. Does admit to sleeping in the recliner. Redness seems to be more venous stasis coloration. Timing/Duration: 1-2 Days Severity: Mild Associated Systoms: No Chest Pain, No Fever/Chills, No Shortness of Air, No Weakness Allergies and Home Medications Allergies Coded Allergies: No Known Drug Allergies (Verified , 10/28/17) Home Medications Albuterol Sulfate 1 Puff Puff, 2 PUFF IH Q4H PRN for SHORTNESS OF BREATH, (Reported) 1 PUFF = 90 MCG Amoxicillin/Potassium Clav 1 Each Tablet, 500 MG PO BID WITH MEALS Prescribed by: SHERRILL NEW on 05/02/182041 Amoxicillin/Potassium Clav 1 Each Tablet, 1 EACH PO BID Prescribed by: KRISTEL JEFFERSON on 06/01/19 1300 Donepezil HCl 10 Mg Tablet, 10 MG PO HS, (Reported) Fluticasone/Salmeterol 12 Gm Hfa.aer.ad, 2 PUFF IH BID@,20 Prescribed by: SHERRILL NEW on 05/02/182041 Memantine HCl 5 Mg Tablet, 5 MG PO DAILY Prescribed by: SHERRILL NEW on 05/02/182041 Montelukast Sodium 10 Mg Tablet, 10 MG PO HS Prescribed by: SHERRILL NEW on 05/02/182041 Pantoprazole Sodium 40 Mg Tablet.dr, 40 MG PO DAILY, (Reported) Prednisone 10 Mg Tab, 40 MG PO ONCE then 3 tabs x1 day then 2 tabs x1 day then 1 tab x1 day Prescribed by: SHERRILL NEW on 05/02/182041 Patient Home Medication List Home Medication List Reviewed: Yes Review of Systems Review of Systems Constitutional: see HPI; No chills, No fever Respiratory: no symptoms reported Cardiovascular: No chest pain; edema Gastrointestinal: no symptoms reported Genitourinary: no symptoms reported Musculoskeletal: No muscle pain, No muscle weakness Skin: see HPI, change in color; No lesions Past Aqyqadi-Kqiunf-Tysvbv Hx Past Med/Social Hx: Reviewed Nursing Past Med/Soc Hx Patient Social History Alcohol Use: Denies Use Recreational Drug Use: No Smoking Status: Never a Smoker Former Smoker, Quit: February 04, 1996 2nd Hand Smoke Exposure: No Recent Foreign Travel: No Contact w/Someone Who Travel: No Recent Infectious Disease Expo: No Recent Hopitalizations: No Physical Abuse: No Sexual Abuse: No Mistreated: No Fear: No Immunizations Up To Date Tetanus Booster (TDap): Unknown PED Vaccines UTD: No Date of Pneumonia Vaccine: Aug 12, 2015 Date of Influenza Vaccine: Jun 20, 2017 Seasonal Allergies Seasonal Allergies: No Past Medical History Surgeries: Yes (L knee scope) Orthopedic Respiratory: Yes Pneumonia, COPD Currently Using CPAP: No Currently Using BIPAP: No Cardiac: Yes High Cholesterol, Valvular Heart Disease Neurological: Yes Dementia Reproductive Disorders: No Female Reproductive Disorders: Denies Sexually Transmitted Disease: No HIV/AIDS: No Genitourinary: No Gastrointestinal: No Musculoskeletal: No Arthritis Endocrine: No HEENT: No Loss of Vision: Bilateral Hearing Impairment: Denies Cancer: No Psychosocial: Yes (SLEEP DIFFICULTIES) Sleep Difficulties Integumentary: Yes (psoriasis on scalp) Psoriasis Blood Disorders: No Adverse Reaction/Blood Tranf: No Family Medical History Reviewed Nursing Family Hx No Pertinent Family Hx Physical Exam Vital Signs Vital Signs - First Documented 07/28/19 07/28/19 16:24 17:50 Temp 36.7 Pulse 56 Resp 17 B/P (MAP) 160/74 (102) Pulse Ox 94 O2 Delivery Room Air Capillary Refill : Less Than 3 Seconds Height, Weight, BMI Height: 4'11.00" Weight: 124lbs. 6.0oz. 56.039094cn; 24.00 BMI Method:Stated General Appearance: No Apparent Distress, WD/WN Respiratory: Lungs Clear, Normal Breath Sounds, No Accessory Muscle Use, No Respiratory Distress Cardiovascular: Regular Rate, Rhythm, No Murmur Extremity: Normal Range of Motion, Non Tender, Pedal Edema (2+ edema up to mid tibia bilateral and equal.) Neurologic/Psychiatric: Alert, Oriented x3 Skin: Warm/Dry, Other (venous stasis skin coloration changes bilateral lower legs. There is some erythema but not significantly greater warmth bilateral.) Progress/Results/Core Measures Suspected Sepsis Recent Fever Within 48 Hours: No Infection Criteria Present: None New/Unexplained Altered Menta: No Sepsis Screen: No Definite Risk SIRS Temperature: Pulse: 56 Respiratory Rate: 17 Laboratory Tests 07/28/19 16:46: White Blood Count 5.4 Blood Pressure 160 /74 Mean: 102 Laboratory Tests 07/28/19 16:46: Creatinine 0.84, Platelet Count 197, Total Bilirubin 0.8 Results/Orders Lab Results Laboratory Tests Test 07/28/19 16:46 Range/Units White Blood Count 5.4 4.3-11.0 10^3/uL Red Blood Count 4.11 L 4.35-5.85 10^6/uL Hemoglobin 12.8 11.5-16.0 G/DL Hematocrit 40 35-52 % Mean Corpuscular Volume 97 80-99 FL Mean Corpuscular Hemoglobin 31 25-34 PG Mean Corpuscular Hemoglobin Concent 32 32-36 G/DL Red Cell Distribution Width 13.7 10.0-14.5 % Platelet Count 197 130-400 10^3/uL Mean Platelet Volume 11.3 H 7.4-10.4 FL Neutrophils (%) (Auto) 64 42-75 % Lymphocytes (%) (Auto) 24 12-44 % Monocytes (%) (Auto) 10 0-12 % Eosinophils (%) (Auto) 2 0-10 % Basophils (%) (Auto) 0 0-10 % Neutrophils # (Auto) 3.5 1.8-7.8 X 10^3 Lymphocytes # (Auto) 1.3 1.0-4.0 X 10^3 Monocytes # (Auto) 0.6 0.0-1.0 X 10^3 Eosinophils # (Auto) 0.1 0.0-0.3 10^3/uL Basophils # (Auto) 0.0 0.0-0.1 10^3/uL Sodium Level 142 135-145 MMOL/L Potassium Level 4.2 3.6-5.0 MMOL/L Chloride Level 103 98-107 MMOL/L Carbon Dioxide Level 29 21-32 MMOL/L Anion Gap 10 5-14 MMOL/L Blood Urea Nitrogen 9 7-18 MG/DL Creatinine 0.84 0.60-1.30 MG/DL Estimat Glomerular Filtration Rate > 60 BUN/Creatinine Ratio 11 Glucose Level 84 70-105 MG/DL Calcium Level 8.9 8.5-10.1 MG/DL Corrected Calcium 8.7 8.5-10.1 MG/DL Total Bilirubin 0.8 0.1-1.0 MG/DL Aspartate Amino Transf (AST/SGOT) 24 5-34 U/L Alanine Aminotransferase (ALT/SGPT) 19 0-55 U/L Alkaline Phosphatase 72 40-136 U/L B-Type Natriuretic Peptide 126.4 H <100.0 PG/ML Total Protein 6.5 6.4-8.2 GM/DL Albumin 4.2 3.2-4.5 GM/DL Thyroid Stimulating Hormone (TSH) 0.32 L 0.35-4.94 UIU/ML Free Thyroxine 1.16 0.70-1.48 NG/DL My Orders Orders - NADIA DONATO MD Chest Pa/Lat (2 View) (07/28/19 17:06) Furosemide Tablet (Lasix Tablet) (07/28/19 17:30) Free T4 (Free Thyroxine) (07/28/19 17:41) Furosemide Tablet (Lasix Tablet) (07/28/19 17:41) Furosemide Tablet (Lasix Tablet) (07/28/19 17:43) Vital Signs/I&O Capillary Refill : Less Than 3 Seconds Blood Pressure Mean: 102 POS Progress Note : Progress Note Seen and evaluated. Labs ordered. Chest x-ray ordered. Lungs are clear. I believe this is simple pedal edema related to sleep in the recliner but we will verify with labs. This does not appear to be related to infection currently. Diagnostic Imaging Diagonstic Imaging: Xray Plain Films/CT/US/NM/MRI: chest Comments [facility], [facility]. POS [place], [place] POS NAME: THEODORA ESPINO [facility] REC#: [id number] PT STATUS: DEP ER : 1945 PHYSICIAN: NADIA DONATO MD ADMIT DATE: 11/16/19/ER Signed POSDate of Exam:07/28/19 CHEST PA/LAT (2 VIEW) EXAMINATION: PA and lateral chest at 5:30p.m. INDICATION: Leg swelling The heart size is within normal limits and stable when compared to 05/02/2018. The chronic pulmonary changes involving the lung bases seen previously are again evident and no different. There is no sign of failure, pneumonia or pleural effusion to indicate an acute abnormality. The mediastinum is not widened. The osseous structures are intact. IMPRESSION: There is no evidence for active disease. Dictated by: Dictated on workstation # [id number] Dict: 07/28/191746 Trans: 07/28/191821 [facility] [id number] Interpreted by: EDEN RODRÍGUEZ MD Electronically signed by: EDEN RODRÍGUEZ MD 07/28/191821 Departure Impression Primary Impression: Dependent edema Disposition: 01 HOME, SELF-CARE Condition: Stable Departure-Patient Inst. Decision time for Depature: 17:33 Referrals: NO,LOCAL PHYSICIAN (PCP) Primary Care Physician SHERRILL NEW DO Patient Instructions: Dependent Edema (DC) Add. Discharge Instructions: All discharge instructions reviewed with patient and/or family. Voiced understanding. It is important that he elevate her feet a few times a day. You should not sleep in a recliner. At nighttime, try to elevate her feet above your heart police for a little while. Watch and minimize salt intake. Follow-up with your doctor this week for recheck and further evaluation. Return for worse pain, fever, chills, increasing redness or warmth of the legs, weakness, breathing problems or other concerns as needed. Continue home medications as previously prescribed. Copy Copies To 1: SHERRILL NEW TIMOTHY D MD Jul 28, 2019 17:18 POS
[2019-07-28] MEDS ORDERED: FUROSEMIDE 40 MG (LASIX) TAB PO ONE (17:30)
[2019-07-28] MEDS ORDERED: FUROSEMIDE 20 MG (LASIX) TAB ONE ×2 (17:41→17:43)
[2019-07-28 17:50] VITALS: BP 119/69
--- NOTE | 2019-07-28 17:51 | Diagnostic Imaging Report ---
EXAMINATION: PA and lateral chest at 5:30p.m. INDICATION: Leg swelling The heart size is within normal limits and stable when compared to 05/02/2018. The chronic pulmonary changes involving the lung bases seen previously are again evident and no different. There is no sign of failure, pneumonia or pleural effusion to indicate an acute abnormality. The mediastinum is not widened. The osseous structures are intact. IMPRESSION: There is no evidence for active disease. Dictated by: Dictated on workstation # [id number]
== END 2019-07-28 17:50 | disposition home or self-care (01) ==
LOC: EDUNIT# 16:18 → ER 16:20
DX: R60.9 Edema, unspecified (principal); J44.9 Chronic obstructive pulmonary disease, unspecified; E78.00 Pure hypercholesterolemia, unspecified; F03.90 Unspecified dementia, unspecified severity, without behavioral disturbance, psychotic disturbance, mood disturbance, and anxiety; Z87.891 Personal history of nicotine dependence; Z87.01 Personal history of pneumonia (recurrent)
CPT/HCPCS: 36415; 71046; 80053; 83880; 84439; 84443; 85025

== ENCOUNTER 2020-07-05 14:16 | Emergency (ER) | payer MEDICARE ==
[~2020-07-05] VITALS: Ht 149.8 cm; Wt 49.8 kg
[~2020-07-05 14:16] MED LIST changes: -MONT10TA24 PO; +MONT10TA26 PO; -PANT40TA3 PO; +PANT40TA52 PO; +SIMV20TA26 PO; -SIMV20TA3 PO
--- NOTE | 2020-07-05 14:28 | ED Upper Extremity ---
General Chief Complaint: Trauma-Non Activation Stated Complaint: FALL Nursing Triage Note: Pt to ED via EMS for fall. EMS reports pt fell forward with hands out. EMS reports no LOC. Pt c/o R hand pain. Nursing Sepsis Screen: No Definite Risk History of Present Illness Date Seen by Provider: Jul 05, 2020 Time Seen by Provider: 14:28 Initial Comments This is a 75 yo female from [facility] who presented to ED via [facility] after sustaining a fall. She states she was walking when she tripped and fell forward landing on her arms. Currently she complains of bilateral forearm pain. Denies hitting head/neck. Denies shoulder, hip, or leg pain. While obtaining HPI patient noted to answer some questions inappropriately. She is noted to have history of severe dementia. Location Injury Occurred: home Allergies and Home Medications Allergies Coded Allergies: No Known Drug Allergies (Verified , 10/28/17) Home Medications Albuterol Sulfate 1 Puff Puff, 2 PUFF IH Q4H PRN for SHORTNESS OF BREATH, (Reported) 1 PUFF = 90 MCG Amoxicillin/Potassium Clav 1 Each Tablet, 500 MG PO BID WITH MEALS Prescribed by: SHERRILL NEW on 05/02/182041 Amoxicillin/Potassium Clav 1 Each Tablet, 1 EACH PO BID Prescribed by: KRISTEL JEFFERSON on 06/01/19 1300 Donepezil HCl 10 Mg Tablet, 10 MG PO HS, (Reported) Fluticasone/Salmeterol 12 Gm Hfa.aer.ad, 2 PUFF IH BID@08,20 Prescribed by: SHERRILL NEW on 05/02/182041 Memantine HCl 5 Mg Tablet, 5 MG PO DAILY Prescribed by: SHERRILL NEW on 05/02/182041 Montelukast Sodium 10 Mg Tablet, 10 MG PO HS Prescribed by: SHERRILL NEW on 05/02/182041 Pantoprazole Sodium 40 Mg Tablet.dr, 40 MG PO DAILY, (Reported) Prednisone 10 Mg Tab, 40 MG PO ONCE then 3 tabs x1 day then 2 tabs x1 day then 1 tab x1 day Prescribed by: SHERRILL NEW on 05/02/182041 Patient Home Medication List Home Medication List Reviewed: Yes Review of Systems Constitutional: no symptoms reported EENTM: no symptoms reported Respiratory: no symptoms reported Cardiovascular: no symptoms reported Gastrointestinal: no symptoms reported Genitourinary: no symptoms reported Musculoskeletal: see HPI Skin: no symptoms reported Psychiatric/Neurological: No Symptoms Reported Past Tzaxrjk-Jqnqsh-Mjsvpt Hx Patient Social History Alcohol Use: Denies Use Recreational Drug Use: No Former Smoker, Quit: February 04, 1996 2nd Hand Smoke Exposure: No Recent Foreign Travel: No Contact w/Someone Who Travel: No Recent Infectious Disease Expo: No Recent Hopitalizations: No Immunizations Up To Date Tetanus Booster (TDap): Unknown PED Vaccines UTD: No Date of Pneumonia Vaccine: Aug 12, 2015 Date of Influenza Vaccine: Jun 20, 2017 Seasonal Allergies Seasonal Allergies: No Past Medical History Surgeries: Yes (L knee scope) Orthopedic Respiratory: Yes Pneumonia, COPD Currently Using CPAP: No Currently Using BIPAP: No Cardiac: Yes High Cholesterol, Valvular Heart Disease Neurological: Yes Dementia Reproductive Disorders: No Female Reproductive Disorders: Denies Sexually Transmitted Disease: No HIV/AIDS: No Genitourinary: No Gastrointestinal: No Musculoskeletal: No Arthritis Endocrine: No HEENT: No Loss of Vision: Bilateral Hearing Impairment: Denies Cancer: No Psychosocial: Yes (SLEEP DIFFICULTIES) Sleep Difficulties Integumentary: Yes (psoriasis on scalp) Psoriasis Blood Disorders: No Adverse Reaction/Blood Tranf: No Family Medical History No Pertinent Family Hx Physical Exam Vital Signs Vital Signs - First Documented 07/05/20 14:17 Temp 35.8 Pulse 73 Resp 20 B/P (MAP) 137/71 (93) Pulse Ox 93 O2 Delivery Room Air Capillary Refill : Less Than 3 Seconds Height, Weight, BMI Height: 4'11.00" Weight: 124lbs. 6.0oz. 56.598538ut; 22.00 BMI Method:Stated General Appearance: WD/WN, no apparent distress HEENT: PERRL/EOMI, normal ENT inspection, TMs normal, pharynx normal Neck: non-tender, full range of motion, supple, normal inspection Cardiovascular: regular rate, rhythm, no edema Respiratory: chest non-tender, lungs clear, normal breath sounds, no respir atory distress Gastrointestinal: normal bowel sounds, non tender, soft Back: normal inspection, no vertebral tenderness Shoulder: normal inspection, non-tender, no evidence of injury, normal ROM Elbow/Forearm: normal inspection, non-tender, no evidence of injury, normal ROM Wrist: Yes normal inspection, Yes no evidence of injury, Yes normal ROM, Yes pain Hand: normal inspection, non-tender, no evidence of injury, normal ROM Neurologic/Tendon: normal sensation, normal motor functions Neurologic/Psychiatric: alert, normal mood/affect, other (oriented to person only ) Skin: normal color, warm/dry Progress/Results/Core Measures Results/Orders Lab Results Laboratory Tests Test 07/05/20 14:55 07/05/20 15:00 Range/Units Urine Color YELLOW Urine Clarity SL CLOUDY Urine pH 7.0 5-9 Urine Specific [place] 1.015 L 1.016-1.022 Urine Protein NEGATIVE NEGATIVE Urine Glucose (UA) NEGATIVE NEGATIVE Urine Ketones NEGATIVE NEGATIVE Urine Nitrite NEGATIVE NEGATIVE Urine Bilirubin NEGATIVE NEGATIVE Urine Urobilinogen 0.2 < = 1.0 MG/DL Urine Leukocyte Esterase TRACE H NEGATIVE Urine RBC (Auto) NEGATIVE NEGATIVE Urine RBC NONE /HPF Urine WBC RARE /HPF Urine Squamous Epithelial Cells NONE /HPF Urine Crystals NONE /LPF Urine Bacteria NEGATIVE /HPF Urine Casts NONE /LPF Urine Mucus NEGATIVE /LPF Urine Culture Indicated NO White Blood Count 6.1 4.3-11.0 10^3/uL Red Blood Count 3.86 3.80-5.11 10^6/uL Hemoglobin 12.3 11.5-16.0 g/dL Hematocrit 37 35-52 % Mean Corpuscular Volume 96 80-99 fL Mean Corpuscular Hemoglobin 32 25-34 pg Mean Corpuscular Hemoglobin Concent 33 32-36 g/dL Red Cell Distribution Width 14.1 10.0-14.5 % Platelet Count 211 130-400 10^3/uL Mean Platelet Volume 11.0 9.0-12.2 fL Immature Granulocyte % (Auto) 1 % Neutrophils (%) (Auto) 63 42-75 % Lymphocytes (%) (Auto) 23 12-44 % Monocytes (%) (Auto) 11 0-12 % Eosinophils (%) (Auto) 2 0-10 % Basophils (%) (Auto) 1 0-10 % Neutrophils # (Auto) 3.9 1.8-7.8 10^3/uL Lymphocytes # (Auto) 1.4 1.0-4.0 10^3/uL Monocytes # (Auto) 0.7 0.0-1.0 10^3/uL Eosinophils # (Auto) 0.1 0.0-0.3 10^3/uL Basophils # (Auto) 0.0 0.0-0.1 10^3/uL Immature Granulocyte # (Auto) 0.0 0.0-0.1 10^3/uL Sodium Level 138 135-145 MMOL/L Potassium Level 4.4 3.6-5.0 MMOL/L Chloride Level 103 98-107 MMOL/L Carbon Dioxide Level 28 21-32 MMOL/L Anion Gap 7 5-14 MMOL/L Blood Urea Nitrogen 10 7-18 MG/DL Creatinine 0.77 0.60-1.30 MG/DL Estimat Glomerular Filtration Rate > 60 BUN/Creatinine Ratio 13 Glucose Level 99 70-105 MG/DL Calcium Level 9.0 8.5-10.1 MG/DL Corrected Calcium 9.1 8.5-10.1 MG/DL Total Bilirubin 0.7 0.1-1.0 MG/DL Aspartate Amino Transf (AST/SGOT) 23 5-34 U/L Alanine Aminotransferase (ALT/SGPT) 16 0-55 U/L Alkaline Phosphatase 73 40-136 U/L Total Protein 6.6 6.4-8.2 GM/DL Albumin 3.9 3.2-4.5 GM/DL My Orders Orders - MORGAN THAO [employer] Forearm, 2 Views, Bilateral (07/05/20 14:42) Ct Head/Cervical Spine Wo (07/05/20 14:42) Pelvis/Gael Hips 2 Views (07/05/20 14:42) Cbc With Automated Diff (07/05/20 14:45) Comprehensive Metabolic Panel (07/05/20 14:45) Ua Culture If Indicated (07/05/20 14:45) Vital Signs/I&O Blood Pressure Mean: 93 Progress Progress Note : Progress Note Attempted to call [facility] nursing staff for report but was unable to reach staff. Due to the patients history of dementia her recall of events is questionable. Will obtain non-contrast head CT with c-spine, bilateral forearms, and images of pelvis. Basic labs and UA ordered. Radiographs and labs are unremarkable. Called nursing facility to report findings. RN stated patient was found on floor in bathroom, and this was an unwitnessed fall. I personally discussed the findings with the nurse and r equested patient transfer back to [place] as she was becoming irritated and walking around ED looking for exit. Diagnostic Imaging Diagonstic Imaging: CT Plain Films/CT/US/NM/MRI: c-spine, head Comments NAME: THEODORA ESPINO [facility] REC#: [id number] PT STATUS: REG ER : 1945 PHYSICIAN: MORGAN THAO [employer] ADMIT DATE: 07/05/20/ER Signed Date of Exam:07/05/20 CT HEAD/CERVICAL SPINE WO PROCEDURE: CT head and CT cervical spine without contrast. TECHNIQUE: Multiple contiguous axial images were obtained through the brain and cervical spine without the use of intravenous contrast. Sagittal and coronal reformations through the cervical spine were then performed. Auto Exposure Controls were utilized during the CT exam to meet ALARA standards for radiation dose reduction. INDICATION: Fall. COMPARISON: Prior head CT from January 18, 2018. FINDINGS: There is no CT finding of acute intracranial hemorrhage. There is no evidence of an abnormal extra-axial collection. There is no intracranial mass effect or shift. There is no hydrocephalus. There is age-related global volume loss and mild proportional ventriculomegaly. There is no finding of territorial loss of clinton-white differentiation. Some apparent low density within the left cerebellum is a prominent sulcus in correlation with the coronal and sagittal reformats. There is no finding of a calvarial fracture. The mastoid air cells appear clear. The paranasal sinuses appear clear. Orbital contents are unremarkable. Cervical spinal demonstrates multilevel degenerative disc disease and facet arthropathy. There is maintenance of normal relationships at the craniocervical junction and normal relationships of the lateral masses of C1 and C2. The facets appear normally aligned. There are no findings of facet joint or disc space widening. Vertebral body heights are maintained. There are no findings of an acute cervical spine fracture. There are advanced degenerative endplate changes within the cervical spine most significant at C3-C4, C4-C5 and C5-C6 as well as multilevel facet arthropathy. In the upper thoracic spine there appears to be some slight chronic wedging of the T1 superior endplate with an associated endplate Schmorl's node. Soft tissues of the neck demonstrate no acute process. Lung apices demonstrate apparent features of centrilobular emphysema. IMPRESSION: 1. No CT evidence of an acute intracranial abnormality or calvarial fracture. 2. Advanced cervical degenerative disc disease and facet arthropathy. There is some chronic superior endplate wedging of T1. There is no finding of traumatic malalignment or of an acute cervical spine fracture. Dictated by: Dictated on workstation # [id number] Dict: 07/05/20 1543 Trans: 07/05/201553 [facility] [id number] Interpreted by: JUSTIN VILLEGAS MD Electronically signed by: JUSTIN VILLEGAS MD 07/05/20 155 Diagonstic Imaging: Xray Plain Films/CT/US/NM/MRI: forearm Comments NAME: THEODORA ESPINO [facility] REC#: [id number] PT STATUS: REG ER : 1945 PHYSICIAN: MORGAN THAO APRN ADMIT DATE: 07/05/20/ER Signed Date of Exam:07/05/20 FOREARM, 2 VIEWS, BILATERAL HISTORY: Fall, forearm injury. TECHNIQUE: Two views of the forearms. Positioning is somewhat suboptimal due to altered mental status. COMPARISON: None. FINDINGS: There is diffuse osteopenia. No acute fracture is seen in the forearms, bilaterally. Alignment appears normal. Joint spaces are preserved. There are degenerative changes at the basal joints of the thumbs. IMPRESSION: No acute osseous abnormality is seen in the bilateral forearms. Dictated by: Dictated on workstation # [id number] Dict: 07/05/201543 Trans: 07/05/201551 [facility] [id number] Interpreted by: BENJAMIN CHU MD Electronically signed by: BENJAMIN CHU MD 07/05/20 1552 Diagonstic Imaging: Xray Plain Films/CT/US/NM/MRI: pelvis Comments NAME: THEODORA ESPINO [facility] REC#: [id number] PT STATUS: REG ER : 1945 PHYSICIAN: MORGAN THAO APRN ADMIT DATE: 07/05/20/ER Signed Date of Exam:07/05/20 PELVIS/GAEL HIPS 2 VIEWS HISTORY: Fall, trauma. TECHNIQUE: Frontal view of the pelvis. Frontal and lateral views of the bilateral hips. COMPARISON: 02/10/2012. FINDINGS: There is diffuse osteopenia. No acute fracture is seen in the pelvis or the bilateral hips. Alignment appears normal. The femoral heads are well-seated in the acetabula, bilaterally. There are mild degenerative changes in the bilateral hip joints. Bilateral sacral iliac joints are patent. IMPRESSION: No acute fracture is seen in the pelvis or bilateral hips. Dictated by: Dictated on workstation # [id number] Dict: 07/05/20 1543 Trans: 07/05/20 155 [facility] [id number] Interpreted by: BENJAMIN CHU MD Electronically signed by: BENJAMIN CHU MD 07/05/20 155 Departure Impression Primary Impression: Fall Disposition: 03 XFER SNF Condition: Stable/Unchanged Departure-Patient Inst. Decision time for Depature: 16:03 Referrals: NO,LOCAL PHYSICIAN (PCP/Family) Primary Care Physician Patient Instructions: Preventing Falls in the Older Adult Add. Discharge Instructions: Plan: 1. Discharge to [facility]. 2. May take Tylenol or Ibuprofen as needed for pain per package instructions. 3. Follow up with your primary care provider if your symptoms persist. 4. Return for any new or concerning symptoms. 5. See fall prevention education. All discharge instructions reviewed with patient and/or family. Voiced understanding. MORGAN THAO [employer] Jul 05, 2020 14:28
[2020-07-05 15:05] LABS: BILIRUBIN,URINE NEGATIVE (NEGATIVE); CLARITY,URINE SL CLOUDY; COLOR,URINE YELLOW; GLUCOSE, URINE (UA) NEGATIVE (NEGATIVE); KETONES,URINE NEGATIVE (NEGATIVE); LEUKOCYTE ESTERASE ,URINE TRACE (NEGATIVE); NITRITE,URINE NEGATIVE (NEGATIVE); PROTEIN,URINE NEGATIVE (NEGATIVE)
[2020-07-05 15:07] LABS: BASOPHILS % (AUTO) 1 % (0-10); EOSINOPHILS # (AUTO) 0.1 10^3/uL (0.0-0.3); EOSINOPHILS % (AUTO) 2 % (0-10); HEMATOCRIT 37 % (35-52); HEMOGLOBIN 12.3 g/dL (11.5-16.0); LYMPHOCYTES # (AUTO) 1.4 10^3/uL (1.0-4.0); LYMPHOCYTES % (AUTO) 23 % (12-44); MEAN CORPUSCULAR HEMOGLOBIN 32 pg (25-34); MEAN CORPUSCULAR HGB CONC 33 g/dL (32-36); MEAN CORPUSCULAR VOLUME 96 fL (80-99); MONOCYTES # (AUTO) 0.7 10^3/uL (0.0-1.0); MONOCYTES % (AUTO) 11 % (0-12); NEUTROPHILS # (AUTO) 3.9 10^3/uL (1.8-7.8); NEUTROPHILS % (AUTO) 63 % (42-75); PLATELET COUNT 211 10^3/uL (130-400); WHITE BLOOD COUNT 6.1 10^3/uL (4.3-11.0)
[2020-07-05 15:11] LABS: BACTERIA,URINE NEGATIVE /HPF; WBC,URINE RARE /HPF
[2020-07-05 15:22] LABS: ALBUMIN 3.9 GM/DL (3.2-4.5); CHLORIDE 103 MMOL/L (98-107); POTASSIUM 4.4 MMOL/L (3.6-5.0); SODIUM 138 MMOL/L (135-145)
[2020-07-05 15:24] LABS: GLUCOSE 99 MG/DL (70-105); TOTAL PROTEIN 6.6 GM/DL (6.4-8.2)
[2020-07-05 15:25] LABS: CARBON DIOXIDE 28 MMOL/L (21-32)
[2020-07-05 15:26] LABS: BILIRUBIN,TOTAL 0.7 MG/DL (0.1-1.0)
[2020-07-05 15:27] LABS: ALKALINE PHOSPHATASE 73 U/L (40-136)
[2020-07-05 15:28] LABS: CREATININE SERUM 0.77 MG/DL (0.60-1.30); GFR ESTIMATED > 60
[2020-07-05 15:29] LABS: BUN/CREATININE RATIO 13
[2020-07-05 15:31] LABS: ALANINE AMINOTRANSFERASE 16 U/L (0-55)
--- NOTE | 2020-07-05 15:48 | Diagnostic Imaging Report ---
HISTORY: Fall, trauma. TECHNIQUE: Frontal view of the pelvis. Frontal and lateral views of the bilateral hips. COMPARISON: 02/10/2012. FINDINGS: There is diffuse osteopenia. No acute fracture is seen in the pelvis or the bilateral hips. Alignment appears normal. The femoral heads are well-seated in the acetabula, bilaterally. There are mild degenerative changes in the bilateral hip joints. Bilateral sacral iliac joints are patent. IMPRESSION: No acute fracture is seen in the pelvis or bilateral hips. Dictated by: Dictated on workstation # [id number]
--- NOTE | 2020-07-05 15:49 | Diagnostic Imaging Report ---
HISTORY: Fall, forearm injury. TECHNIQUE: Two views of the forearms. Positioning is somewhat suboptimal due to altered mental status. COMPARISON: None. FINDINGS: There is diffuse osteopenia. No acute fracture is seen in the forearms, bilaterally. Alignment appears normal. Joint spaces are preserved. There are degenerative changes at the basal joints of the thumbs. IMPRESSION: No acute osseous abnormality is seen in the bilateral forearms. Dictated by: Dictated on workstation # [id number]
--- NOTE | 2020-07-05 15:53 | Diagnostic Imaging Report ---
PROCEDURE: CT head and CT cervical spine without contrast. TECHNIQUE: Multiple contiguous axial images were obtained through the brain and cervical spine without the use of intravenous contrast. Sagittal and coronal reformations through the cervical spine were then performed. Auto Exposure Controls were utilized during the CT exam to meet ALARA standards for radiation dose reduction. INDICATION: Fall. COMPARISON: Prior head CT from January 18, 2018. FINDINGS: There is no CT finding of acute intracranial hemorrhage. There is no evidence of an abnormal extra-axial collection. There is no intracranial mass effect or shift. There is no hydrocephalus. There is age-related global volume loss and mild proportional ventriculomegaly. There is no finding of territorial loss of clinton-white differentiation. Some apparent low density within the left cerebellum is a prominent sulcus in correlation with the coronal and sagittal reformats. There is no finding of a calvarial fracture. The mastoid air cells appear clear. The paranasal sinuses appear clear. Orbital contents are unremarkable. Cervical spinal demonstrates multilevel degenerative disc disease and facet arthropathy. There is maintenance of normal relationships at the craniocervical junction and normal relationships of the lateral masses of C1 and C2. The facets appear normally aligned. There are no findings of facet joint or disc space widening. Vertebral body heights are maintained. There are no findings of an acute cervical spine fracture. There are advanced degenerative endplate changes within the cervical spine most significant at C3-C4, C4-C5 and C5-C6 as well as multilevel facet arthropathy. In the upper thoracic spine there appears to be some slight chronic wedging of the T1 superior endplate with an associated endplate Schmorl's node. Soft tissues of the neck demonstrate no acute process. Lung apices demonstrate apparent features of centrilobular emphysema. IMPRESSION: 1. No CT evidence of an acute intracranial abnormality or calvarial fracture. 2. Advanced cervical degenerative disc disease and facet arthropathy. There is some chronic superior endplate wedging of T1. There is no finding of traumatic malalignment or of an acute cervical spine fracture. Dictated by: Dictated on workstation # [id number]
[2020-07-05 17:15] VITALS: BP 129/72
== END 2020-07-05 17:15 ==
LOC: EDUNIT# 14:16 → ER 14:17
DX: M79.632 Pain in left forearm (principal); M79.631 Pain in right forearm; J44.9 Chronic obstructive pulmonary disease, unspecified; F03.90 Unspecified dementia, unspecified severity, without behavioral disturbance, psychotic disturbance, mood disturbance, and anxiety; Z87.891 Personal history of nicotine dependence; Z79.52 Long term (current) use of systemic steroids
CPT/HCPCS: 36415; 70450; 72125; 73521; 80053; 81000; 85025

== ENCOUNTER 2021-09-20 10:47 | Inpatient (IN) | payer MEDICARE ==
[~2021-09-20] VITALS: Ht 152.4 cm; Wt 46.4 kg
[~2021-09-20 10:47] MED LIST changes: +MONT-40 PO; -MONT10TA26 PO
--- NOTE | 2021-09-20 11:04 | ED Dyspnea ---
General Stated Complaint: HYPOXIA Source of Information: EMS, [facility] Exam Limitations: No Limitations History of Present Illness Date Seen by Provider: Sep 20, 2021 Time Seen by Provider: 11:00 Initial Comments [id number] her distal refill of her albuterol HFA 90 mcg inhaler 2 puffs 4 times a day as needed you can give her 3 refills any questions call me back ER [phone] 76-year-old female with history of COPD and Alzheimer's presents to ER by EMS from [facility] with reports of hypoxia. Oxygen saturation at 87% on room air. Typically does not wear oxygen. She had a fever of 101 according to the [facility] records this was noted this morning. She had a negative Covid swab at the [facility]it[facility]iary this morning. She refused nasal cannula oxygen in route to the hospital on arrival to ER she is at 83% room air. She is in no distress without accessory muscle use or apparent dyspnea. Timing/Duration: 24 Hours Severity: Moderate Modifying Factors: Improves With Coughing Associated Symptoms: Cough Allergies and Home Medications Allergies Coded Allergies: No Known Drug Allergies (Verified , 10/28/17) Patient Home Medication List Home Medication List Reviewed: Yes Albuterol Sulfate (Ventolin Hfa) 1 Puff Puff, 2 PUFF IH Q4H PRN for SHORTNESS OF BREATH, (Reported) Entered as Reported by: GARRETT VILLELA on 01/19/18 1015 Amoxicillin/Potassium Clav (Amox Tr-K Clv 500-125 mg Tab) 1 Each Tablet, 500 MG PO BID WITH MEALS Prescribed by: SHERRILL NEW on 05/02/182041 Amoxicillin/Potassium Clav (Augmentin 875-125 Tablet) 1 Each Tablet, 1 EACH PO BID Prescribed by: KRISTEL JEFFERSON on 06/01/19 1300 Donepezil HCl (Donepezil HCl) 10 Mg Tablet, 10 MG PO HS, (Reported) Entered as Reported by: EMILY VELA on 04/29/18 0915 Fluticasone/Salmeterol (Advair Hfa 115-21 Mcg Inhaler) 12 Gm Hfa.aer.ad, 2 PUFF IH BID@,20 Prescribed by: SHERRILL NEW on 05/02/18 204 Memantine HCl (Namenda) 5 Mg Tablet, 5 MG PO DAILY Prescribed by: SHERRILL NEW on 05/02/182041 Montelukast Sodium (Montelukast Sodium) 10 Mg Tablet, 10 MG PO HS Prescribed by: SHERRILL NEW on 05/02/182041 Pantoprazole Sodium (Pantoprazole Sodium) 40 Mg Tablet.dr, 40 MG PO DAILY, (Reported) Entered as Reported by: EMILY VELA on 04/29/18 0915 Prednisone (Prednisone) 10 Mg Tab, 40 MG PO ONCE Prescribed by: SHERRILL NEW on 05/02/182041 Review of Systems Review of Systems Constitutional: see HPI EENTM: see HPI Respiratory: see HPI, cough Cardiovascular: no symptoms reported Genitourinary: no symptoms reported Musculoskeletal: no symptoms reported Skin: no symptoms reported Psychiatric/Neurological: No Symptoms Reported Endocrine: No Symptoms Reported Past Miykloh-Wyoxnk-Zukise Hx Immunizations Up To Date Tetanus Booster (TDap): Unknown PED Vaccines UTD: No Seasonal Allergies Seasonal Allergies: No Past Medical History Surgeries: Yes (L knee scope) Orthopedic Respiratory: Yes Pneumonia, COPD Currently Using CPAP: No Currently Using BIPAP: No Cardiac: Yes High Cholesterol, Valvular Heart Disease Neurological: Yes Dementia Reproductive Disorders: No Female Reproductive Disorders: Denies Sexually Transmitted Disease: No HIV/AIDS: No Genitourinary: No Gastrointestinal: No Musculoskeletal: No Arthritis Endocrine: No HEENT: No Loss of Vision: Bilateral Hearing Impairment: Denies Cancer: No Psychosocial: Yes (SLEEP DIFFICULTIES) Sleep Difficulties Integumentary: Yes (psoriasis on scalp) Psoriasis Blood Disorders: No Adverse Reaction/Blood Tranf: No Family Medical History No Pertinent Family Hx Physical Exam Vital Signs Vital Signs - First Documented 09/20/21 09/20/21 10:49 11:17 Temp 36.3 Pulse 93 Resp 18 B/P (MAP) 115/44 (67) Pulse Ox 95 O2 Delivery OxyMask O2 Flow Rate 10.00 Capillary Refill : Height, Weight, BMI Height: 4'11.00" Weight: 124lbs. 6.0oz. [id number]; 22.00 BMI Method:Stated General Appearance: No Apparent Distress, WD/WN, Chronically ill, Thin, Other (Alert looking around the room, no distress) Neck: Full Range of Motion, Normal Inspection Respiratory: No Accessory Muscle Use, No Respiratory Distress, Decreased Breath Sounds Cardiovascular: Regular Rate, Rhythm, Normal Peripheral Pulses Gastrointestinal: Normal Bowel Sounds, Non Tender, Soft Extremity: Normal Capillary Refill, Normal Inspection Neurologic/Psychiatric: Alert, Disoriented (Nonverbal during ER stay,) Skin: Normal Color, Warm/Dry Focused Exam Lactate Level 09/20/21 11:03: Lactic Acid Level 1.85 Lactic Acid Level Laboratory Tests Test 09/20/21 11:03 Lactic Acid Level 1.85 MMOL/L (0.50-2.00) Progress/Results/Core Measures Results/Orders Lab Results Laboratory Tests Test 09/20/21 11:03 09/20/21 11:06 09/20/21 11:35 Range/Units White Blood Count 23.9 H 4.3-11.0 10^3/uL Red Blood Count 4.44 3.80-5.11 10^6/uL Hemoglobin 14.1 11.5-16.0 g/dL Hematocrit 43 35-52 % Mean Corpuscular Volume 96 80-99 fL Mean Corpuscular Hemoglobin 32 25-34 pg Mean Corpuscular Hemoglobin Concent 33 32-36 g/dL Red Cell Distribution Width 13.2 10.0-14.5 % Platelet Count 202 130-400 10^3/uL Mean Platelet Volume 11.3 9.0-12.2 fL Immature Granulocyte % (Auto) 2 % Neutrophils (%) (Auto) 81 H 42-75 % Lymphocytes (%) (Auto) 6 L 12-44 % Monocytes (%) (Auto) 10 0-12 % Eosinophils (%) (Auto) 0 0-10 % Basophils (%) (Auto) 1 0-10 % Neutrophils # (Auto) 19.4 H 1.8-7.8 10^3/uL Lymphocytes # (Auto) 1.4 1.0-4.0 10^3/uL Monocytes # (Auto) 2.4 H 0.0-1.0 10^3/uL Eosinophils # (Auto) 0.1 0.0-0.3 10^3/uL Basophils # (Auto) 0.1 0.0-0.1 10^3/uL Immature Granulocyte # (Auto) 0.5 H 0.0-0.1 10^3/uL Neutrophils % (Manual) 78 % Lymphocytes % (Manual) 6 % Monocytes % (Manual) 7 % Promyelocytes % 1 % Band Neutrophils 4 % Atypical Lymphocytes 4 % Macrocytosis SLIGHT Blood Gas Puncture Site LT RAD Blood Gas Patient Temperature 36.3 Arterial Blood pH 7.43 7.37-7.43 Arterial Blood Partial Pressure CO2 41 35-45 MMHG Arterial Blood Partial Pressure O2 79 79-93 MMHG Arterial Blood HCO3 27 23-27 MMOL/L Arterial Blood Total CO2 28.0 21.0-31.0 MMOL/L Arterial Blood Oxygen Saturation 97 94-100 % Arterial Blood Base Excess 2.5 -2.5-2.5 MMOL/L Uziel Test YES-POS Blood Gas Ventilator Setting NO Blood Gas Inspired Oxygen ROOM AIR Sodium Level 136 135-145 MMOL/L Potassium Level 4.5 3.6-5.0 MMOL/L Chloride Level 99 98-107 MMOL/L Carbon Dioxide Level 25 21-32 MMOL/L Anion Gap 12 5-14 MMOL/L Blood Urea Nitrogen 19 H 7-18 MG/DL Creatinine 0.87 0.60-1.30 MG/DL Estimat Glomerular Filtration Rate 63 BUN/Creatinine Ratio 22 Glucose Level 105 70-105 MG/DL Lactic Acid Level 1.85 0.50-2.00 MMOL/L Calcium Level 9.1 8.5-10.1 MG/DL Corrected Calcium 9.3 8.5-10.1 MG/DL Total Bilirubin 1.7 H 0.1-1.0 MG/DL Aspartate Amino Transf (AST/SGOT) 16 5-34 U/L Alanine Aminotransferase (ALT/SGPT) 10 0-55 U/L Alkaline Phosphatase 73 40-136 U/L B-Type Natriuretic Peptide 112.1 H <100.0 PG/ML Total Protein 6.9 6.4-8.2 GM/DL Albumin 3.7 3.2-4.5 GM/DL Urine Color ORANGE Urine Clarity SL CLOUDY Urine pH 6.0 5-9 Urine Specific [place] >=1.030 1.016-1.022 Urine Protein TRACE H NEGATIVE Urine Glucose (UA) NEGATIVE NEGATIVE Urine Ketones 1+ H NEGATIVE Urine Nitrite NEGATIVE NEGATIVE Urine Bilirubin 1+ H NEGATIVE Urine Urobilinogen 1.0 < = 1.0 MG/DL Urine Leukocyte Esterase NEGATIVE NEGATIVE Urine RBC (Auto) NEGATIVE NEGATIVE Urine RBC 0-2 /HPF Urine WBC 0-2 /HPF Urine Squamous Epithelial Cells 2-5 /HPF Urine Crystals NONE /LPF Urine Bacteria TRACE /HPF Urine Casts NONE /LPF Urine Mucus NEGATIVE /LPF Urine Culture Indicated NO Prothrombin Time 14.4 12.2-14.7 SEC INR Comment 1.1 0.8-1.4 Activated Partial Thromboplast Time 33 24-35 SEC My Orders Orders - KRISTEL JEFFERSON APRN Cbc With Automated Diff (09/20/21 10:56) Comprehensive Metabolic Panel (09/20/21 10:56) Blood Culture (09/20/21 10:56) Sputum Culture (09/20/21 10:56) Urinalysis (09/20/21 10:56) Urine Culture (09/20/21 10:56) Protime With Inr (09/20/21 10:56) Partial Thromboplastin Time (09/20/21 10:56) Chest 1 View, Ap/Pa Only (09/20/21 10:56) Ed Iv/Invasive Line Start (09/20/21 10:56) Ed Iv/Invasive Line Start (09/20/21 10:56) Vital Signs Adult Sepsis Patie Q15M (09/20/21 10:56) O2 (09/20/21 10:56) Remove Rings In Anticipation O (09/20/21 10:56) Lactic Acid Analyzer (09/20/21 10:56) Influenza A And B By Pcr (09/20/21 10:56) Covid 19 Inhouse Test (09/20/21 10:56) Bnp [place] (09/20/21 10:56) Arterial Blood Gas (09/20/21 10:56) Manual Differential (09/20/21 11:03) Methylprednisolone Sod Succ (Solu-Medrol (09/20/21 12:00) Albuterol/Ipra Inhalation Soln (Duoneb I (09/20/21 12:00) Cefepime Injection (Maxipime Injection) (09/20/21 12:00) Svn Small Volume Nebulizer (09/20/21 11:48) Procalcitonin (Pct) (09/20/21 11:48) Vital Signs/I&O 09/20/21 09/20/21 10:49 11:17 Temp 36.3 Pulse 93 Resp 18 B/P (MAP) 115/44 (67) Pulse Ox 95 95 O2 Delivery OxyMask OxyMask O2 Flow Rate 10.00 10.00 Departure Communication (Admissions) 1149-we have tapered down her oxygen via mask to 2 L. She was 10 at 97%. At 2 L she is down to 93% SPO2. She is still in no distress. We will admit to Dr. Magaña, cefepime, steroids, add procalcitonin. I spoke with the patient's sister Denisha who has power of tax associate attorney about CODE STATUS. The [facility]'s paperwork [facility] states full CODE STATUS. Denisha states she is not sure if Marjan had ever made any statement as to what she would want. She will talk to her brother and sister and decide if she wants to keep Marjan full code or change to DNR/DNI. As of this time however we will continue full CODE STATUS. Impression Primary Impression: Hypoxemia Additional Impressions: Pneumonia Dementia Disposition: ADMITTED INPATIENT Condition: Stable Admissions Decision to Admit Reason: Admit from ER (General) Decision to Admit/Date: Sep 20, 2021 Time/Decision to Admit Time: 11:49 Departure-Patient Inst. Referrals: NO,LOCAL PHYSICIAN (PCP/Family) Primary Care Physician KRISTEL JEFFERSON APRN Sep 20, 2021 11:04
[2021-09-20 11:15] LABS: BASOPHILS # (AUTO) 0.1 10^3/uL (0.0-0.1); BASOPHILS % (AUTO) 1 % (0-10); EOSINOPHILS # (AUTO) 0.1 10^3/uL (0.0-0.3); EOSINOPHILS % (AUTO) 0 % (0-10); HEMATOCRIT 43 % (35-52); HEMOGLOBIN 14.1 g/dL (11.5-16.0); LYMPHOCYTES # (AUTO) 1.4 10^3/uL (1.0-4.0); LYMPHOCYTES % (AUTO) 6 % (12-44); MEAN CORPUSCULAR HEMOGLOBIN 32 pg (25-34); MEAN CORPUSCULAR HGB CONC 33 g/dL (32-36); MEAN CORPUSCULAR VOLUME 96 fL (80-99); MEAN PLATELET VOLUME 11.3 fL (9.0-12.2); MONOCYTES # (AUTO) 2.4 10^3/uL (0.0-1.0); MONOCYTES % (AUTO) 10 % (0-12); NEUTROPHILS # (AUTO) 19.4 10^3/uL (1.8-7.8); NEUTROPHILS % (AUTO) 81 % (42-75); PLATELET COUNT 202 10^3/uL (130-400); WHITE BLOOD COUNT 23.9 10^3/uL (4.3-11.0)
[2021-09-20 11:16] LABS: CLARITY,URINE SL CLOUDY; COLOR,URINE ORANGE; GLUCOSE, URINE (UA) NEGATIVE (NEGATIVE); KETONES,URINE 1+ (NEGATIVE); LEUKOCYTE ESTERASE ,URINE NEGATIVE (NEGATIVE); NITRITE,URINE NEGATIVE (NEGATIVE); PROTEIN,URINE TRACE (NEGATIVE)
[2021-09-20 11:19] LABS: ABG BASE EXCESS 2.5 MMOL/L (-2.5-2.5); ABG OXYGEN SATURATION 97 % (94-100); ABG PCO2 41 MMHG (35-45); ABG PH 7.43 (7.37-7.43); ABG PO2 79 MMHG (79-93)
[2021-09-20 11:20] LABS: ALLENS TEST YES-POS; INSPIRED O2 ROOM AIR; VENTILATOR NO
[2021-09-20 11:21] LABS: PATIENT TEMP 36.3
[2021-09-20 11:25] LABS: BACTERIA,URINE TRACE /HPF; RBC,URINE 0-2 /HPF; WBC,URINE 0-2 /HPF
[2021-09-20 11:26] LABS: BILIRUBIN,URINE 1+ (NEGATIVE)
--- NOTE | 2021-09-20 11:34 | Diagnostic Imaging Report ---
Chest one view at 1107h. INDICATION: Cough. Shortness of breath The heart is stable in size when compared to the prior exam of 01/21/2018. In the interval since the previous study vague areas of increased density have developed in both lung bases. These findings do suggest mild pneumonia/atelectasis. The upper lungs are generally clear. The pradip are somewhat prominent but no different than on the prior exam. The mediastinum is not widened. The osseous structures are intact. IMPRESSION: The findings do suggest that there is now mild bibasilar pneumonia/atelectasis. Clinical follow-up is recommended. Dictated by: Dictated on workstation # [id number]
[2021-09-20 11:37] LABS: ALBUMIN 3.7 GM/DL (3.2-4.5); POTASSIUM 4.5 MMOL/L (3.6-5.0)
[2021-09-20 11:38] LABS: CALCIUM 9.1 MG/DL (8.5-10.1)
[2021-09-20 11:40] LABS: TOTAL PROTEIN 6.9 GM/DL (6.4-8.2)
[2021-09-20 11:41] LABS: BILIRUBIN,TOTAL 1.7 MG/DL (0.1-1.0)
[2021-09-20 11:42] LABS: ATYPICAL LYMPHOCYTES 4 %; BAND NEUTROPHILS 4 %; LYMPHOCYTES % (MANUAL) 6 %; MONOCYTES % (MANUAL) 7 %; NEUTROPHILS % (MANUAL) 78 %; PROMYELOCYTES % 1 %
[2021-09-20 11:43] LABS: CREATININE SERUM 0.87 MG/DL (0.60-1.30)
[2021-09-20 11:51] LABS: INR 1.1 (0.8-1.4); PROTHROMBIN TIME PATIENT 14.4 SEC (12.2-14.7)
[2021-09-20] MEDS ORDERED: RT-ALBUTEROL/IPRATROPIUM 3 ML (DUONEB) VIAL INH ONE (12:00)
[2021-09-20] MEDS ORDERED: methylPREDNISolone 125 MG (Solu-MEDROL) VIAL IVP ONE (12:00)
[2021-09-20] MEDS ORDERED: CEFEPIME INJECTION 1,000 MG in NS (IVPB) 50 ML IV ONE (12:00)
[2021-09-20 16:04] VITALS: BP 111/55
[2021-09-20] MEDS ORDERED: ONDANSETRON 4 MG/2 ML (SDV) Z0FRAN IV PRN ×2 (16:30→18:00)
[2021-09-20 16:41] VITALS: BP 111/55
[2021-09-20] MEDS ORDERED: LORazepam INJ 2 MG/ML (ATIVAN) VIAL IV PRN (16:45)
[2021-09-20] MEDS ORDERED: ACETAMINOPHEN 325 MG TABLET PO PRN (16:45)
[2021-09-20] MEDS ORDERED: RT-ALBUTEROL/IPRATROPIUM 3 ML (DUONEB) VIAL INH PRN (16:45)
[2021-09-20] MEDS: LACTATED RINGERS 1,000 ML IV SCH (17:09)
[2021-09-20] MEDS ORDERED: polyethylene glycoL POWDER 17 GM (MIRALAX) PACK PO PRN (18:00)
[2021-09-20] MEDS ORDERED: ANTACID SUSP 30 ML UDC (MYLANTA) PO PRN (18:00)
[2021-09-20] MEDS ORDERED: LACTULOSE SYRUP 10GM/15ML (ENULOSE) 30ML UDC PO PRN (18:00)
[2021-09-20] MEDS ORDERED: ONDANSETRON 4 MG (ZOFRAN) ORAL DISSOLVE TAB PO PRN (18:00)
[2021-09-20] MEDS ORDERED: MELATONIN 3 MG TABLET PO PRN (18:00)
[2021-09-20] MEDS ORDERED: ESCI5TAB16 PO (18:27)
[2021-09-20] MEDS ORDERED: ALBU1.25 INH (18:27)
[2021-09-20] MEDS ORDERED: MAGN400O7 PO (18:27)
[2021-09-20] MEDS ORDERED: LORA10TA7 PO (18:27)
[2021-09-20] MEDS ORDERED: ACET325T49 PO (18:27)
[2021-09-20] MEDS ORDERED: CALC-794 PO (18:27)
[2021-09-20] MEDS ORDERED: ENOXAPARIN 40 MG/0.4 ML (LOVENOX) SYR ONE (18:50)
[2021-09-20] MEDS: ENOXAPARIN 40 MG/0.4 ML (LOVENOX) SYR SC SCH (18:54)
[2021-09-20 19:06] VITALS: BP 105/50
[2021-09-20] MEDS: inSUlin ASPART (NovoLOG) 1 UNIT/0.01 ML (CHARGE PER UNIT) SC SCH (20:18)
[2021-09-20] MEDS: RT-ALBUTEROL/IPRATROPIUM 3 ML (DUONEB) VIAL INH SCH (20:59)
[2021-09-20] MEDS: DONEPEZIL 10 MG (ARICEPT) TAB PO SCH (21:15)
[2021-09-20] MEDS: MONTELUKAST 10 MG (SINGULAIR) TAB PO SCH (21:15)
[2021-09-20] MEDS: DOCUSATE SODIUM 100 MG (COLACE) CAP PO SCH (21:20)
[2021-09-20] MEDS ORDERED: methylPREDNISolone 40 MG/ML (Solu-MEDROL) VIAL IV SCH (22:00)
[2021-09-21] VITALS (7 sets, daily range): BP systolic 93–167; BP diastolic 42–75
[2021-09-21] MEDS: LACTATED RINGERS 1,000 ML IV SCH ×3 (00:56→17:04)
[2021-09-21] MEDS: RT-ALBUTEROL/IPRATROPIUM 3 ML (DUONEB) VIAL INH SCH ×4 (02:54→21:16)
[2021-09-21] MEDS: inSUlin ASPART (NovoLOG) 1 UNIT/0.01 ML (CHARGE PER UNIT) SC SCH ×4 (05:02→20:04)
[2021-09-21 07:19] LABS: BASOPHILS % (AUTO) 0 % (0-10); EOSINOPHILS % (AUTO) 0 % (0-10); HEMATOCRIT 32 % (35-52); HEMOGLOBIN 10.8 g/dL (11.5-16.0); LYMPHOCYTES # (AUTO) 0.7 10^3/uL (1.0-4.0); LYMPHOCYTES % (AUTO) 6 % (12-44); MEAN CORPUSCULAR HEMOGLOBIN 32 pg (25-34); MEAN CORPUSCULAR HGB CONC 34 g/dL (32-36); MEAN CORPUSCULAR VOLUME 94 fL (80-99); MEAN PLATELET VOLUME 11.4 fL (9.0-12.2); MONOCYTES % (AUTO) 8 % (0-12); NEUTROPHILS # (AUTO) 10.4 10^3/uL (1.8-7.8); NEUTROPHILS % (AUTO) 85 % (42-75); PLATELET COUNT 149 10^3/uL (130-400); WHITE BLOOD COUNT 12.3 10^3/uL (4.3-11.0)
[2021-09-21 07:41] LABS: POTASSIUM 4.3 MMOL/L (3.6-5.0)
[2021-09-21 07:42] LABS: CALCIUM 8.4 MG/DL (8.5-10.1)
[2021-09-21 07:47] LABS: CREATININE SERUM 0.67 MG/DL (0.60-1.30)
[2021-09-21] MEDS ORDERED: SALI325S2 TP (08:53)
[2021-09-21] MEDS ORDERED: RT-ALBUINH INH (08:55)
[2021-09-21] MEDS: MEMANTINE 5 MG (NAMENDA) TABLET PO SCH (09:22)
[2021-09-21] MEDS: DOCUSATE SODIUM 100 MG (COLACE) CAP PO SCH ×2 (09:22→20:40)
[2021-09-21] MEDS ORDERED: AZITHROMYCIN INJECTION 500 MG in NS (IVPB) 250 ML IV ONE (13:00)
[2021-09-21] MEDS: RT--FLUTICASONE/SALMETEROL 113-14 (AIRDUO RespiCLICK) IH SCH ×2 (14:07→21:16)
[2021-09-21] MEDS: cefTRIAXone 1 GM PRE-MIX 50 ML IV SCH (16:08)
[2021-09-21] MEDS ORDERED: AZITHROMYCIN INJECTION 500 MG/5 ML VIAL ONE (16:59)
[2021-09-21] MEDS ORDERED: NS (IVPB) 250 ML ONE (17:00)
--- NOTE | 2021-09-21 18:16 | History & Physical ---
History of Present Illness History of Present Illness Reason for visit/HPI This is a 76 year old female with end stage dementia who was brought to the emergency room with hypoxia and shortness of air and cough. She was found to have a COPD exacerbation with bibasilar atelectesis/pneumonia. Her oxygen saturation was in the high 80s on arrival and she was placed on oxygen via nasal cannula. Her WBC count was elevated at 23,900. She will be admitted for acute respiratory distress with hypoxia and pneumonia and SIRS and COPD exacerbation. Will also consider palliative care consult for possible hospice on DC due to her worsening dementia. Date of Admission Sep 20, 2021 at 12:04 Date Seen by a Provider: Sep 21, 2021 Time Seen by a Provider: 08:15 I consulted on this patient on 09/21/21 18:11 Attending Physician Sherrill Wise DO Admitting Physician Yaima,Local Physician Consult Allergies and Home Medications Allergies Coded Allergies: No Known Drug Allergies (Verified , 10/28/17) Patient Home Medication List Home Medication List Reviewed: Yes Acetaminophen (Acetaminophen) 325 Mg Tablet, 650 MG PO Q6H PRN for PAIN-MILD (1- 4), (Reported) Entered as Reported by: JAVIER MARK on 09/20/211826 Last Action: Reviewed Albuterol Sulfate (Albuterol Sulfate) 1.25 Mg/3 Ml Vial.neb, 1.25 MG INH Q4H PRN for SHORTNESS OF BREATH, (Reported) Entered as Reported by: JAVIER MARK on 09/20/211826 Last Action: Reviewed Albuterol Sulfate (Ventolin Hfa) 1 Puff Puff, 2 PUFF INH Q4H PRN for SHORTNESS OF BREATH, (Reported) Entered as Reported by: ASHWIN HEMPHILL on 09/21/21 08 Last Action: Reviewed Calcium Carb & Citrate/Vit D3 (Calcium + D3 ER Tablet) 1 Each Tablet.er, 1 EACH PO DAILY, (Reported) Entered as Reported by: JAVIER MARK on 09/20/211826 Last Action: Reviewed Donepezil HCl (Donepezil HCl) 10 Mg Tablet, 10 MG PO BID, (Reported) Entered as Reported by: EMILY VELA on 04/29/18 0915 Last Action: Reviewed Escitalopram Oxalate (Escitalopram Oxalate) 5 Mg Tablet, 5 MG PO DAILY, (Reported) Entered as Reported by: JAVIER MARK on 09/20/211826 Last Action: Reviewed Loratadine (Loratadine) 10 Mg Tablet, 10 MG PO DAILY, (Reported) Entered as Reported by: JAVIER MARK on 09/20/211826 Last Action: Reviewed Magnesium Hydroxide (Milk of Magnesia) 400 Mg/5 Ml Oral.susp, 30 ML PO DAILY PRN, (Reported) Entered as Reported by: JAVIER MARK on 09/20/211826 Last Action: Reviewed Salicylic Acid (Selsun Blue) 325 Ml Shampoo, 1 APPLIC TP 3XWEEKLY, (Reported) Entered as Reported by: ASHWIN HEMPHILL on 09/21/21 0853 Last Action: Reviewed Discontinued Medications Albuterol Sulfate (Ventolin Hfa) 1 Puff Puff, 2 PUFF IH Q4H PRN for SHORTNESS OF BREATH, (Reported) Discontinued Reason: No Longer Taking Entered as Reported by: GARRETT VILLELA on 01/19/18 1015 Last Action: Discontinued Amoxicillin/Potassium Clav (Amox Tr-K Clv 500-125 mg Tab) 1 Each Tablet, 500 MG PO BID WITH MEALS Discontinued Reason: No Longer Taking Prescribed by: SHERRILL WISE on 05/02/182041 Last Action: Discontinued Amoxicillin/Potassium Clav (Augmentin 875-125 Tablet) 1 Each Tablet, 1 EACH PO BID Discontinued Reason: No Longer Taking Prescribed by: KRISTEL JEFFERSON on 06/01/19 1300 Last Action: Discontinued Fluticasone/Salmeterol (Advair Hfa 115-21 Mcg Inhaler) 12 Gm Hfa.aer.ad, 2 PUFF IH BID@ Discontinued Reason: No Longer Taking Prescribed by: SHERRILL WISE on 05/02/182041 Last Action: Discontinued Memantine HCl (Namenda) 5 Mg Tablet, 5 MG PO DAILY Discontinued Reason: No Longer Taking Prescribed by: SHERRILL WISE on 05/02/182041 Last Action: Discontinued Montelukast Sodium (Montelukast Sodium) 10 Mg Tablet, 10 MG PO HS Discontinued Reason: No Longer Taking Prescribed by: SHERRILL WISE on 05/02/182041 Last Action: Discontinued Pantoprazole Sodium (Pantoprazole Sodium) 40 Mg Tablet.dr, 40 MG PO DAILY, (Repo rted) Discontinued Reason: No Longer Taking Entered as Reported by: EMILY VELA on 04/29/18 0915 Last Action: Discontinued Prednisone (Prednisone) 10 Mg Tab, 40 MG PO ONCE Discontinued Reason: No Longer Taking Prescribed by: SHERRILL WISE on 05/02/182041 Last Action: Discontinued Past Ogfxzel-Frznwu-Afiiar Hx Patient Social History Tobacco Use?: No Substance use?: No Alcohol Use?: No Pt feels they are or have been: Unable to obtain Immunizations Up To Date Date of Influenza Vaccine: Jun 17, 2021 First/Initial COVID19 Vaccinat: 10-06-2020 Tetanus Booster (TDap): Unknown Hepatitis A: No Hepatitis B: No PED Vaccines UTD: No Date of Pneumonia Vaccine: Aug 12, 2015 Seasonal Allergies Seasonal Allergies: No Current Status status: No status: No Advance Directives: Unable to obtain Communicates: Verbally Primary Language: Nepali Preferred Spoken Language: Nepali Is interpretation needed?: No Sensory deficits: Other Additional sensory deficits: DEMENTIA Implanted or Applied Medical D: None Past Medical History Surgeries: Orthopedic Pneumonia, COPD Currently Using CPAP: No Currently Using BIPAP: No High Cholesterol, Valvular Heart Disease Dementia Sexually Transmitted Disease: No HIV/AIDS: No Arthritis Loss of Vision: Bilateral Hearing Impairment: Denies Sleep Difficulties Psoriasis Blood Disorders: No Adverse Reaction/Blood Tranf: No Family Medical History No Pertinent Family Hx Review of Systems Constitutional: weakness, weight loss EENTM: No see HPI, No no symptoms reported, No ear discharge, No hearing loss, No ear pain, No blurred vision, No double vision, No eye pain, No tearing, No vision loss, No dental problems, No hoarseness, No mouth pain, No mouth swelling, No epistaxis, No nose congestion, No nose pain, No throat pain, No throat swelling, No other Respiratory: cough, dyspnea on exertion, short of breath Cardiovascular: No no symptoms reported, No see HPI, No chest pain, No edema, No Hx of Intervention, No palpitations, No syncope, No vascular heart diseas, No other Gastrointestinal: loss of appetite Genitourinary: No no symptoms reported, No see HPI, No decreased output, No discharge, No dysuria, No frequency, No hematuria, No hesitancy, No incontinence , No nocturia, No pain, No other Musculoskeletal: muscle weakness Skin: No no symptoms reported, No see HPI, No change in color, No change in hair/nails, No dryness, No hx of skin cancer, No lesions, No lumps, No pruritus, No rash, No other Psychiatric/Neurological: Weakness, Other (dementia) Physical Exam Vital Signs Vital Signs - First Documented 09/20/21 09/20/21 10:49 11:17 Temp 36.3 Pulse 93 Resp 18 B/P (MAP) 115/44 (67) Pulse Ox 95 O2 Delivery OxyMask O2 Flow Rate 10.00 Capillary Refill : Less Than 3 Seconds Height, Weight, BMI Height: 4'11.00" Weight: 124lbs. 6.0oz. 56.140560rr; 19.97 BMI Method:Stated General Appearance: No Apparent Distress HEENT: Normal ENT Inspection Neck: Supple Respiratory: Decreased Breath Sounds Cardiovascular: Regular Rate, Rhythm Gastrointestinal: Normal Bowel Sounds, Non Tender, Soft Rectal: Deferred Back: No CVA Tenderness Extremity: Non Tender, No Calf Tenderness, No Pedal Edema Neurologic/Psychiatric: Alert, Disoriented Skin: Warm/Dry Comments Laboratory Tests 09/20/21 20:08: Glucometer 126H 09/21/21 04:58: Glucometer 111H 09/21/21 07:06: White Blood Count 12.3H, Red Blood Count 3.41L, Hemoglobin 10.8#L, Hematocrit 3 2L, Mean Corpuscular Volume 94, Mean Corpuscular Hemoglobin 32, Mean Corpuscular Hemoglobin Concent 34, Red Cell Distribution Width 13.1, Platelet Count 149, Mean Platelet Volume 11.4, Immature Granulocyte % (Auto) 1, Neutrophils (%) ( Auto) 85H, Lymphocytes (%) (Auto) 6L, Monocytes (%) (Auto) 8, Eosinophils (%) (Auto) 0, Basophils (%) (Auto) 0, Neutrophils # (Auto) 10.4H, Lymphocytes # (Auto) 0.7L, Monocytes # (Auto) 1.0, Eosinophils # (Auto) 0.0, Basophils # (Auto) 0.0, Immature Granulocyte # (Auto) 0.1, Sodium Level 138, Potassium Level 4.3, Chloride Level 103, Carbon Dioxide Level 28, Anion Gap 7, Blood Urea Nitrogen 21H, Creatinine 0.67, Estimat Glomerular Filtration Rate 86, BUN/Creatinine Ratio 31, Glucose Level 103, Calcium Level 8.4L 09/21/21 11:33: Glucometer 77 09/21/21 17:14: Glucometer 92 Microbiology 09/20/21 Blood Culture - Preliminary, Resulted No growth 09/20/21 Urine Culture - Final, Complete NO GROWTH Assessment/Plan Assessment and Plan 1. Acute Respiratory Distress with Hypoxia--admit on oxygen via NC 2. Acute Pneumonia with SIRS--IV rocephin and zithromax 3. Acute Exacerbation of COPD--continue SVNS with albuterol, change solumedrol to prednisone 4. Worsening/End Stage Dementia--need to consider hospice on DC Admission Diagnosis Admission Status: Inpatient Order (span 2 midnights) Reason for Inpatient Admission: Will need at least 48hrs of antibiotics SHERRILL WISE DO Sep 21, 2021 18:16
[2021-09-21] MEDS: ENOXAPARIN 40 MG/0.4 ML (LOVENOX) SYR SC SCH (18:24)
[2021-09-21] MEDS: MONTELUKAST 10 MG (SINGULAIR) TAB PO SCH (20:40)
[2021-09-21] MEDS: DONEPEZIL 10 MG (ARICEPT) TAB PO SCH (20:40)
[2021-09-22] MEDS: LACTATED RINGERS 1,000 ML IV SCH ×3 (02:10→18:37)
[2021-09-22] MEDS: RT-ALBUTEROL/IPRATROPIUM 3 ML (DUONEB) VIAL INH SCH ×4 (02:17→21:21)
[2021-09-22 03:30] VITALS: BP 127/58
[2021-09-22 06:03] LABS: HEMATOCRIT 32 % (35-52); HEMOGLOBIN 10.6 g/dL (11.5-16.0); MEAN CORPUSCULAR HEMOGLOBIN 32 pg (25-34); MEAN CORPUSCULAR HGB CONC 33 g/dL (32-36); MEAN CORPUSCULAR VOLUME 96 fL (80-99); MEAN PLATELET VOLUME 11.5 fL (9.0-12.2); PLATELET COUNT 197 10^3/uL (130-400); WHITE BLOOD COUNT 9.2 10^3/uL (4.3-11.0)
[2021-09-22] MEDS: inSUlin ASPART (NovoLOG) 1 UNIT/0.01 ML (CHARGE PER UNIT) SC SCH ×4 (06:05→23:03)
[2021-09-22 06:16] LABS: ALBUMIN 2.7 GM/DL (3.2-4.5); POTASSIUM 3.6 MMOL/L (3.6-5.0)
[2021-09-22 06:17] LABS: CALCIUM 8.1 MG/DL (8.5-10.1)
[2021-09-22 06:20] LABS: BILIRUBIN,TOTAL 0.6 MG/DL (0.1-1.0)
[2021-09-22 06:22] LABS: CREATININE SERUM 0.66 MG/DL (0.60-1.30)
[2021-09-22] MEDS: predniSONE 20 MG TAB PO SCH (06:29)
[2021-09-22 08:00] VITALS: BP 123/60
[2021-09-22] MEDS: AZITHROMYCIN 250 MG TAB (ZITHROMAX) PO SCH (08:26)
[2021-09-22] MEDS: cefTRIAXone 1 GM PRE-MIX 50 ML IV SCH (08:26)
[2021-09-22] MEDS: DOCUSATE SODIUM 100 MG (COLACE) CAP PO SCH ×2 (08:26→20:45)
[2021-09-22] MEDS: MEMANTINE 5 MG (NAMENDA) TABLET PO SCH (08:29)
[2021-09-22] MEDS: RT--FLUTICASONE/SALMETEROL 113-14 (AIRDUO RespiCLICK) IH SCH ×2 (09:00→21:21)
[2021-09-22 12:00] VITALS: BP 126/61
[2021-09-22 16:00] VITALS: BP 111/61
[2021-09-22] MEDS: ENOXAPARIN 40 MG/0.4 ML (LOVENOX) SYR SC SCH (18:09)
--- NOTE | 2021-09-22 18:40 | Progress Note ---
Subjective Date Seen by a Provider: Sep 22, 2021 Time Seen by a Provider: 08:30 Subjective/Events-last exam Fwup acute respiratory distress with hypoxia, Pneumonia with SIRS, acute exacerbation of COPD, end stage dementia. Patient sitting up in bed. More talkative today. Keeps pulling off oxygen. Focused Exam Lactate Level 09/20/21 11:03: Lactic Acid Level 1.85 Objective Exam Vital Signs Date Time Temp Pulse Resp B/P (MAP) Pulse Ox O2 Delivery O2 Flow Rate FiO2 09/22/21 16:00 37.6 78 20 111/61 (78) 91 Room Air 09/22/21 12:00 35.5 78 18 126/61 (82) 90 OxyMask 4.00 09/22/21 09:01 91 Room Air 09/22/21 08:00 91 OxyMask 4.00 09/22/21 08:00 36.2 74 24 123/60 (81) 90 OxyMask 4.00 09/22/21 03:30 37.0 76 20 127/58 (81) 90 OxyMask 4.00 09/21/21 23:40 37.4 74 20 97/51 (66) 89 OxyMask 4.00 09/21/21 21:16 85 Nasal Cannula 3.00 09/21/21 20:30 OxyMask 3.00 09/21/21 19:54 36.4 101 18 105/75 (85) 90 Room Air I & O 09/22/21 07:00 Intake Total 210 ml Output Total 400 ml Balance -190 ml Capillary Refill : Less Than 3 Seconds General Appearance: No Apparent Distress Neck: Supple Respiratory: Decreased Breath Sounds, Rhonci Cardiovascular: Regular Rate, Rhythm Gastrointestinal: normal bowel sounds, non tender, soft Extremity: Non Tender, No Calf Tenderness, No Pedal Edema Neurologic/Psychiatric: Alert, Disoriented Results Lab Laboratory Tests 09/21/21 20:03: Glucometer 100 09/22/21 05:25: White Blood Count 9.2, Red Blood Count 3.36L, Hemoglobin 10.6L, Hematocrit 32L, Mean Corpuscular Volume 96, Mean Corpuscular Hemoglobin 32, Mean Corpuscular Hemoglobin Concent 33, Red Cell Distribution Width 13.3, Platelet Count 197, Mean Platelet Volume 11.5, Sodium Level 141, Potassium Level 3.6, Chloride Level 106, Carbon Dioxide Level 28, Anion Gap 7, Blood Urea Nitrogen 15, Creatinine 0.66, Estimat Glomerular Filtration Rate 87, BUN/Creatinine Ratio 23, Glucose Level 89, Calcium Level 8.1L, Corrected Calcium 9.1, Total Bilirubin 0.6, Aspartate Amino Transf (AST/SGOT) 13, Alanine Aminotransferase (ALT/SGPT) 8, Alkaline Phosphatase 50, Total Protein 5.0L, Albumin 2.7L 09/22/21 05:54: Glucometer 87 09/22/21 12:16: Glucometer 104 09/22/21 17:09: Glucometer 103 Microbiology 09/20/21 Blood Culture - Preliminary, Resulted No growth 09/20/21 Urine Culture - Final, Complete NO GROWTH Assessment/Plan Assessment/Plan Assess & Plan/Chief Complaint 1. Acute Respiratory Distress with Hypoxia--on 4L via mask but only because keeps this on better than NC 2. Pneumonia with SIRS--on rocephin/zithromax 3. COPD with acute exacerbation--on SVNS and prednisone 4. End Stage Dementia--palliative care discussed hospice with sister but she just wants info mailed to her Clinical Quality Measures Admission Status Admission Dx 1. Acute Respiratory Distress with Hypoxia--admit on oxygen via NC 2. Acute Pneumonia with SIRS--IV rocephin and zithromax 3. Acute Exacerbation of COPD--continue SVNS with albuterol, change solumedrol to prednisone 4. Worsening/End Stage Dementia--need to consider hospice on DC SHERRILL NEW DO Sep 22, 2021 18:40
[2021-09-22 20:00] VITALS: BP 113/57
[2021-09-22] MEDS: MONTELUKAST 10 MG (SINGULAIR) TAB PO SCH (20:45)
[2021-09-22] MEDS: DONEPEZIL 10 MG (ARICEPT) TAB PO SCH (20:45)
[2021-09-23] VITALS: BP 128/61
[2021-09-23] MEDS: RT-ALBUTEROL/IPRATROPIUM 3 ML (DUONEB) VIAL INH SCH ×4 (02:23→21:06)
[2021-09-23 03:59] VITALS: BP 145/71
[2021-09-23] MEDS: predniSONE 20 MG TAB PO SCH (06:13)
[2021-09-23] MEDS: inSUlin ASPART (NovoLOG) 1 UNIT/0.01 ML (CHARGE PER UNIT) SC SCH ×4 (06:13→21:00)
[2021-09-23] MEDS: LACTATED RINGERS 1,000 ML IV SCH ×3 (06:14→22:08)
[2021-09-23 07:30] VITALS: BP 141/58
[2021-09-23] MEDS: RT--FLUTICASONE/SALMETEROL 113-14 (AIRDUO RespiCLICK) IH SCH ×2 (08:43→21:06)
[2021-09-23] MEDS: cefTRIAXone 1 GM PRE-MIX 50 ML IV SCH (10:42)
[2021-09-23] MEDS: DOCUSATE SODIUM 100 MG (COLACE) CAP PO SCH ×2 (10:43→22:07)
[2021-09-23] MEDS: AZITHROMYCIN 250 MG TAB (ZITHROMAX) PO SCH (10:43)
[2021-09-23] MEDS: MEMANTINE 5 MG (NAMENDA) TABLET PO SCH (10:43)
[2021-09-23 11:55] VITALS: BP 111/57
[2021-09-23] MEDS ORDERED: AZIT250T PO (12:23)
[2021-09-23] MEDS ORDERED: CEFD300C3 PO (12:23)
[2021-09-23] MEDS ORDERED: PRD20T PO (12:23)
[2021-09-23 16:20] VITALS: BP 137/61
[2021-09-23] MEDS: ENOXAPARIN 40 MG/0.4 ML (LOVENOX) SYR SC SCH (17:12)
--- NOTE | 2021-09-23 17:23 | Discharge Summary ---
Diagnosis/Chief Complaint Date of Admission Sep 20, 2021 at 12:04 Date of Discharge Discharge Date: Sep 23, 2021 Discharge Diagnosis 1. Acute Pneumonia with SIRS--improved 2. Acute Respiratory Distress with Hypoxia--improved 3. COPD with acute exacerbation--improved, on oral prednisone 4. End Stage Dementia Reason Hospital Visit This is a 76 year old female with end stage dementia who was brought to the emergency room with hypoxia and shortness of air and cough. She was found to have a COPD exacerbation with bibasilar atelectesis/pneumonia. Her oxygen saturation was in the high 80s on arrival and she was placed on oxygen via nasal cannula. Her WBC count was elevated at 23,900. She will be admitted for acute respiratory distress with hypoxia and pneumonia and SIRS and COPD exacerbation. Will also consider palliative care consult for possible hospice on DC due to her worsening dementia. Discharge Summary Hospital Course Hospital Course This is a 76 year old female with end stage dementia who was brought to the emergency room with hypoxia and shortness of air and cough. She was found to have a COPD exacerbation with bibasilar atelectesis/pneumonia. Her oxygen saturation was in the high 80s on arrival and she was placed on oxygen via nasal cannula. Her WBC count was elevated at 23,900. She will be admitted for acute respiratory distress with hypoxia and pneumonia and SIRS and COPD exacerbation. Will also consider palliative care consult for possible hospice on DC due to her worsening dementia. She was treated with IV rocephin and zithromax. She was placed on oxygen initially via NC but she was adjusted to a mask due to compliance issues with keeping the nasal cannula in place. She was initially given IV solumedrol then was switched to prednisone. She was given nebulizer treatments with duoneb. Her WBC count was down to 9.2 by discharge. Her lungs were much improved on auscultation and she was much more alert and eating well with assistance. Palliative care was ordered as patient has advanced dementia but her sister only wanted information mailed to her. She will be discharged back to the [place] on oral cefdinir and zithromax as well as nebulizer treatments and will have a home oxygen qualifier prior to discharge. Labs Laboratory Tests 09/20/21 20:08: Glucometer 126H 09/21/21 04:58: Glucometer 111H 09/21/21 07:06: White Blood Count 12.3H, Red Blood Count 3.41L, Hemoglobin 10.8#L, Hematocrit 32L, Neutrophils (%) (Auto) 85H, Lymphocytes (%) (Auto) 6L, Neutrophils # (Auto) 10.4H, Lymphocytes # (Auto) 0.7L, Blood Urea Nitrogen 21H, Calcium Level 8.4L 09/21/21 11:33: 09/21/21 17:14: 09/21/21 20:03: 09/22/21 05:25: Red Blood Count 3.36L, Hemoglobin 10.6L, Hematocrit 32L, Calcium Level 8.1L, Total Protein 5.0L, Albumin 2.7L 09/22/21 05:54: 09/22/21 12:16: 09/22/21 17:09: 09/22/21 22:11: 09/23/21 05:05: 09/23/21 10:45: Glucometer 112H 09/23/21 16:51: Procedures None. Discharge Physical Examination Allergies: Coded Allergies: No Known Drug Allergies (Verified , 10/28/17) Vitals & I&Os Vital Signs Date Time Temp Pulse Resp B/P (MAP) Pulse Ox O2 Delivery O2 Flow Rate FiO2 09/23/21 16:20 36.6 79 20 137/61 (86) 89 Room Air 09/23/21 14:58 5.00 General Appearance: Alert, No Acute Distress Respiratory: Other (few rhonchi) Cardiovascular: Regular Rate Extremities: No Clubbing, No Cyanosis, No Edema Psych/Mental Status: Other (confused but pleasant affect) Discharge Home Medications Reviewed and agree with Discharge Medication list on patient's Discharge Instruction sheet Instructions to Patient/Family Please see electronic discharge instructions given to patient. SHERRILL NEW DO Sep 23, 2021 17:23
[2021-09-23 20:00] VITALS: BP 128/58
[2021-09-23] MEDS: MONTELUKAST 10 MG (SINGULAIR) TAB PO SCH (22:07)
[2021-09-23] MEDS: DONEPEZIL 10 MG (ARICEPT) TAB PO SCH (22:07)
[2021-09-24] VITALS: BP 132/61
[2021-09-24] MEDS: RT-ALBUTEROL/IPRATROPIUM 3 ML (DUONEB) VIAL INH SCH ×2 (02:55→09:02)
[2021-09-24 04:37] VITALS: BP 144/65
[2021-09-24] MEDS: inSUlin ASPART (NovoLOG) 1 UNIT/0.01 ML (CHARGE PER UNIT) SC SCH ×2 (06:12→11:01)
[2021-09-24] MEDS: predniSONE 20 MG TAB PO SCH (07:07)
[2021-09-24 07:30] VITALS: BP 149/73
[2021-09-24] MEDS: MEMANTINE 5 MG (NAMENDA) TABLET PO SCH (09:00)
[2021-09-24] MEDS: DOCUSATE SODIUM 100 MG (COLACE) CAP PO SCH (09:00)
[2021-09-24] MEDS: AZITHROMYCIN 250 MG TAB (ZITHROMAX) PO SCH (09:00)
[2021-09-24] MEDS: RT--FLUTICASONE/SALMETEROL 113-14 (AIRDUO RespiCLICK) IH SCH (09:05)
[2021-09-24] MEDS: cefTRIAXone 1 GM PRE-MIX 50 ML IV SCH (09:12)
--- NOTE | 2021-09-24 12:36 | Discharge Inst-Skilled Nursing ---
Discharge Inst-Skilled NF Reconcile Patient Problems Problems Reviewed?: Yes Patient Instructions Goal: Choking risk Consult/Follow Up/Orders Follow Up Appt.: 2 weeks Skilled NF Admit to: Via [facility] Certification ([facility]) I certify that [facility] services are required to be given on an inpatient basis because of the above named patient's need for [facility] care on a continuing basis for the conditions(s) for which he/she was receiving inpatient hospital services prior to his/her transfer to the SNF. [facility] Facility Order: Speech Language-Evaluate & Treat Oxygen Delivery Method: OxyMask (4 liters) Discharge Diet: Soft Diet Daily Activity as Tolerated: Yes New & Resume Previous Orders Laura Wise Sep 24, 2021 12:34 LAURA WISE DO Sep 24, 2021 12:36
[2021-09-24 12:40] VITALS: BP 147/71
--- NOTE | 2021-09-24 12:45 | Physician Query Clarification ---
Physician Query-General Query to Physician: The medical record reflects the following clinical evidence: Clinical Indicators: On admission: RR 18-22, O2 sats "high 80's" on arrival on RA, 02 sats 90 to 92 on 2-3 L (P/F 203-214), and 95% on 10 Oxy mask (P/F 132), Nursing Documentation of shallow breathing and SOA with exertion Risk Factor(s): Advanced dementia, Pneumonia, COPD Treatment: Supplemental 02 10 initially then 2 to 6, IV Steroids, Albuterol, IV ABX 1. Acute respiratory failure, w hypoxia, present on admission 2. Other explanation of clinical findings 3. Unable to determine (no explanation for clinical findings) Please clarify and document your clinical opinion in the progress notes and discharge summary including the definitive and/or presumptive diagnosis, (suspected or probable), related to the above clinical findings. Please include clinical findings supporting your diagnosis. Shi Evans MSN, RN Clinical Mill Attendant [phone] [email or web address] PHYSICIAN RESPONSE: Based on the clinical findings in the record, please respond to the query above on this document as an addendum. Physician Response: Physician Response 3 If you have questions please contact: Search Marketing Analyst: Ext: Thank you for your time and cooperation. Clinical Mill Attendant/Search Marketing Analyst This is a permanent part of the medical record SHI EVANS Sep 24, 2021 12:45 SHERRILL NEW DO Sep 24, 2021 12:56
--- NOTE | 2021-09-24 12:54 | Progress Note ---
Subjective Date Seen by a Provider: Sep 24, 2021 Time Seen by a Provider: 08:30 Subjective/Events-last exam Fwup acute respiratory distress with hypoxia, Pneumonia with SIRS, acute exacerbation of COPD, end stage dementia. Patient sitting up in bed. Did not go back to DC yesterday so will go today. Objective Exam Vital Signs Date Time Temp Pulse Resp B/P (MAP) Pulse Ox O2 Delivery O2 Flow Rate FiO2 09/24/21 12:40 36.1 71 18 147/71 (96) 86 Room Air 09/24/21 12:36 OxyMask 09/24/21 09:08 90 OxyMask 09/24/21 09:00 Room Air 09/24/21 07:30 36.4 82 20 149/73 (98) 85 OxyMask 6.00 09/24/21 04:37 36.2 51 17 144/65 (91) 96 OxyMask 6.00 09/24/21 02:56 90 OxyMask 6.00 09/24/21 00:00 36.2 58 18 132/61 (84) 90 Room Air 09/23/21 20:30 90 Room Air 09/23/21 20:00 36.8 66 20 128/58 (81) 89 Room Air 09/23/21 16:20 36.6 79 20 137/61 (86) 89 Room Air 09/23/21 14:58 91 OxyMask 5.00 I & O 09/24/21 07:00 Intake Total 350 ml Output Total 625 ml Balance -275 ml Capillary Refill : Less Than 3 Seconds General Appearance: No Apparent Distress Neck: Supple Respiratory: Lungs Clear, Decreased Breath Sounds Cardiovascular: Regular Rate, Rhythm Gastrointestinal: normal bowel sounds, non tender, soft Neurologic/Psychiatric: Alert, Disoriented Skin: Warm/Dry Results Lab Laboratory Tests 09/23/21 16:51: Glucometer 91 09/23/21 20:36: Glucometer 78 09/24/21 05:32: Glucometer 77 Microbiology 09/20/21 Blood Culture - Preliminary, Resulted No growth 09/20/21 Urine Culture - Final, Complete NO GROWTH Assessment/Plan Assessment/Plan Assess & Plan/Chief Complaint 1. Acute Respiratory Distress with Hypoxia--on 4L via mask but only because keeps this on better than NC 2. Pneumonia with SIRS--DC on cefdinir/zithromax 3. COPD with acute exacerbation--on SVNS and prednisone 4. End Stage Dementia--palliative care discussed hospice with sister but she just wants info mailed to her, back to [place] today with SNF but only for ST because choking hazard is biggest risk, patient needs assistance with eating and has difficulty following simple commmands Clinical Quality Measures Admission Status Admission Dx 1. Acute Respiratory Distress with Hypoxia--admit on oxygen via NC 2. Acute Pneumonia with SIRS--IV rocephin and zithromax 3. Acute Exacerbation of COPD--continue SVNS with albuterol, change solumedrol to prednisone 4. Worsening/End Stage Dementia--need to consider hospice on DC SHERRILL NEW DO Sep 24, 2021 12:54
[2021-09-24 14:54] VITALS: BP 147/71
== END 2021-09-24 14:48 | DRG 190 ==
LOC: EDUNIT# 10:47 → ER 10:49 → 4TH 12:04
PROVIDERS: ADMIT Internal Medicine; ATTEND Family Medicine
DX: J44.1 Chronic obstructive pulmonary disease with (acute) exacerbation (principal); J18.9 Pneumonia, unspecified organism; R09.02 Hypoxemia; J44.0 Chronic obstructive pulmonary disease with (acute) lower respiratory infection; R06.03 Acute respiratory distress; F03.90 Unspecified dementia, unspecified severity, without behavioral disturbance, psychotic disturbance, mood disturbance, and anxiety; E78.00 Pure hypercholesterolemia, unspecified; M19.90 Unspecified osteoarthritis, unspecified site; Z20.822 Contact with and (suspected) exposure to COVID-19
CPT/HCPCS: 36415; 71045; 80048; 80053; 81000; 82805; 82947; 83605; 83880; 84145; 85007; 85025; 85027; 85610; 85730; 87040; 87088; 87636; 94640; 94760; 94761

== ENCOUNTER 2022-08-18 14:49 | Inpatient (IN) | payer MEDICARE ==
[~2022-08-18 14:49] MED LIST changes: +ACET325T49 PO; +ALBU1.25 INH; +ALBU8.5H6 IH; +AZIT250T PO; +CALC-794 PO; +ESCI5TAB16 PO; +LORA10TA7 PO; +MAGN400O7 PO; +RT-ALBUINH INH; +SALI325S2 TP
[2022-08-18 16:00] VITALS: BP 92/50
[2022-08-18 16:18] LABS: BASOPHILS # (AUTO) 0.1 10^3/uL (0.0-0.1); BASOPHILS % (AUTO) 1 % (0-10); EOSINOPHILS % (AUTO) 0 % (0-10); HEMATOCRIT 42 % (35-52); LYMPHOCYTES # (AUTO) 1.2 10^3/uL (1.0-4.0); LYMPHOCYTES % (AUTO) 7 % (12-44); MEAN CORPUSCULAR HEMOGLOBIN 31 pg (25-34); MEAN CORPUSCULAR HGB CONC 31 g/dL (32-36); MEAN CORPUSCULAR VOLUME 101 fL (80-99); MEAN PLATELET VOLUME 11.8 fL (9.0-12.2); MONOCYTES # (AUTO) 1.2 10^3/uL (0.0-1.0); MONOCYTES % (AUTO) 7 % (0-12); NEUTROPHILS # (AUTO) 14.1 10^3/uL (1.8-7.8); NEUTROPHILS % (AUTO) 84 % (42-75); PLATELET COUNT 278 10^3/uL (130-400); WHITE BLOOD COUNT 16.8 10^3/uL (4.3-11.0)
[2022-08-18] MEDS: NS IV 500 ML 500 ML IV SCH ×3 (16:19→17:35)
--- NOTE | 2022-08-18 16:20 | Diagnostic Imaging Report ---
INDICATION: Cough. Low-grade fever. Coarse breath sounds. COMPARISON: 09/20/2021. FINDINGS: Single frontal radiographic view of the chest was obtained and shows new patchy and consolidative airspace opacities in the right base partially obscuring the right hemidiaphragm. Left lung remains clear. No large effusion or pneumothorax is seen on either side. Cardiac silhouette and pulmonary vasculature are within normal limits. Osseous structures show no gross acute abnormalities. IMPRESSION: New right basilar infiltrate appearing opacities. Follow-up to resolution is advised. Dictated by: Dictated on workstation # [id number]
[2022-08-18 16:27] LABS: ALBUMIN 3.3 GM/DL (3.2-4.5); POTASSIUM 4.1 MMOL/L (3.6-5.0)
[2022-08-18 16:28] LABS: CALCIUM 9.7 MG/DL (8.5-10.1)
[2022-08-18 16:29] LABS: TOTAL PROTEIN 7.1 GM/DL (6.4-8.2)
[2022-08-18 16:31] LABS: BILIRUBIN,TOTAL 0.8 MG/DL (0.1-1.0)
[2022-08-18 16:33] LABS: CREATININE SERUM 1.22 MG/DL (0.60-1.30)
[2022-08-18 16:37] LABS: INR 1.1 (0.8-1.4); PROTHROMBIN TIME PATIENT 14.3 SEC (12.2-14.7)
[2022-08-18] MEDS ORDERED: NS IV 500 ML 500 ML IV SCH (16:45)
[2022-08-18 17:13] LABS: LYMPHOCYTES % (MANUAL) 5 %; MONOCYTES % (MANUAL) 6 %; NEUTROPHILS % (MANUAL) 89 %; RBC MORPH NORMAL
[2022-08-18] MEDS ORDERED: LIDOCAINE UROJET 2% GEL 10 ML PKG TOP ONE (17:15)
--- NOTE | 2022-08-18 17:16 | ED General ---
General Chief Complaint: Cough/Cold/Flu Symptoms Stated Complaint: ELEVATED HEART RATE Nursing Triage Note: PT BROUGHT IN BY [facility] FROM [facility] WITH COMPLAINT OF COUGH, LOW GRADE FEVER, COARSE BREATH SOUNDS, NOT WANTING TO EAT OR DRINK, DECREASED OUTPUT. STATES PT HAD 6LB WEIGHT LOSS OVER THE LAST WEEK. Source of Information: EMS, Half-Way Records Exam Limitations: Physical Impairments (MIRELLA VANCE MD) History of Present Illness Date Seen by Provider: Aug 18, 2022 Time Seen by Provider: 15:40 Initial Comments Patient is a 77-year-old female sent to the emergency department by ambulance chief complaint cough, rapid heart rate, worsening mental status, not eating or drinking for several days. Patient has a history of Alzheimer's dementia and is at baseline nonverbal. History is obtained from the nurse who got report from the correction as well as EMS. Patient appears cachectic and much much older than stated age. Quite tachycardic in the 130s at presentation with normal blood pressure, on 3 L of oxygen at 96%. She is slightly tachypneic, appears very dry in her oral mucosa. Will turn her head and smile at me briefly and then turned back away and close her eyes. No acute distress. She has a " rattle" with very rhonchorous bilateral breath sounds auscultated in all lobes. Abdomen is soft and appears nontender on exam. No lower extremity edema noted. She appears to be moving all 4 extremities. HPI, review of systems, past medical family social history not obtainable from the patient due to her Alzheimer's dementia. Timing/Duration: Other (Unknown) (MIRELLA VANCE MD) Allergies and Home Medications Allergies Coded Allergies: No Known Drug Allergies (Verified , 10/28/17) Patient Home Medication List Home Medication List Reviewed: Yes (MIRELLA VANCE MD) Acetaminophen (Acetaminophen) 325 Mg Tablet, 650 MG PO Q6H PRN for PAIN-MILD (1- 4), (Reported) Entered as Reported by: JAVIER MARK on 09/20/211826 Albuterol Sulfate (Albuterol Sulfate) 1.25 Mg/3 Ml Vial.neb, 1.25 MG INH Q4H PRN for SHORTNESS OF BREATH, (Reported) Entered as Reported by: JAVIER MAKR on 1/9/22 1827 Azithromycin (Zithromax) 250 Mg Tablet, 250 MG PO DAILY Prescribed by: SHERRILL NEW on 09/23/21 1223 Cefdinir (Cefdinir) 300 Mg Capsule, 300 MG PO BID Prescribed by: SHERRILL NEW on 09/23/21 1223 Escitalopram Oxalate (Escitalopram Oxalate) 5 Mg Tablet, 5 MG PO DAILY, (Reported) Entered as Reported by: JAVIER MARK on 09/20/211826 Magnesium Hydroxide (Milk of Magnesia) 400 Mg/5 Ml Oral.susp, 30 ML PO DAILY PRN, (Reported) Entered as Reported by: JAVIER MARK on 09/20/21 182 Prednisone (Prednisone) 20 Mg Tab, 40 MG PO DAILY@0700 Prescribed by: SHERRILL NEW on 09/23/21 122 Salicylic Acid (Selsun Blue) 325 Ml Shampoo, 1 APPLIC TP 3XWEEKLY, (Reported) Entered as Reported by: ASHWIN HEMPHILL on 09/21/21 0853 Review of Systems Review of Systems Unobtainable due to patient's dementia (MIRELLA VANCE MD) Constitutional: malaise, weakness, other (PT UNABLE TO GIVE ANY HISTORY) (NICK MATHIS DO) Past Bnqxdbf-Dkaxcj-Jpagtu Hx Patient Social History Tobacco Use?: No Use of E-Cig and/or Vaping dev: No Substance use?: No Alcohol Use?: No Pt feels they are or have been: No (MIRELLA VANCE MD) Immunizations Up To Date Tetanus Booster (TDap): Unknown PED Vaccines UTD: No First/Initial COVID19 Vaccinat: 10-06-2020 Second COVID19 Vaccination Arnel: 10-06-2020 Third COVID19 Vaccination Date: 10-06-2020 (MIRELLA VANCE MD) Seasonal Allergies Seasonal Allergies: No (MIRELLA VANCE MD) Past Medical History Surgery/Hospitalization HX: PMH: DEMENTIA, OSTEOPOROSIS, HYPOTHYROIDISM, COPD, AFIB, HTN, HEART FALURE, DEPRESSION Surgeries: Yes (L knee scope) Orthopedic Respiratory: Yes Pneumonia, COPD Currently Using CPAP: No Currently Using BIPAP: No Cardiac: Yes High Cholesterol, Valvular Heart Disease Neurological: Yes Dementia Reproductive Disorders: No Female Reproductive Disorders: Denies Sexually Transmitted Disease: No HIV/AIDS: No Genitourinary: No Gastrointestinal: No Musculoskeletal: No Arthritis Endocrine: No HEENT: No Loss of Vision: Bilateral Hearing Impairment: Denies Cancer: No Psychosocial: Yes (SLEEP DIFFICULTIES) Sleep Difficulties Integumentary: Yes (psoriasis on scalp) Psoriasis Blood Disorders: No Adverse Reaction/Blood Tranf: No (MIRELLA VANCE MD) Family Medical History No Pertinent Family Hx (MIRELLA VANCE MD) Physical Exam Vital Signs Vital Signs - First Documented 08/18/22 08/18/22 14:50 16:00 Temp 37.1 Pulse 111 Resp 38 B/P (MAP) 112/61 (78) Pulse Ox 98 O2 Delivery Nasal Cannula O2 Flow Rate 3.00 (NICK MATHIS DO) Vital Signs Capillary Refill : (MIRELLA VANCE MD) Height, Weight, BMI Height: 4'11.00" Weight: 124lbs. 6.0oz. 56.302776ao; 19.97 BMI Method:Stated General Appearance: Thin, Other (Appears chronically ill) Eyes: Bilateral Eye Normal Inspection, Bilateral Eye PERRL, Bilateral Eye EOMI HEENT: Other (Very dry oral mucosa) Neck: Normal Inspection Respiratory: Other (Coarse rhonchus rattly breath sounds in all lobes, tachypnea) Cardiovascular: Normal Peripheral Pulses, Tachycardia Gastrointestinal: Non Tender, Soft; No Distended Extremity: Normal Inspection, No Pedal Edema Neurologic/Psychiatric: Other (Alert to voice, nonverbal, does not follow commands) Skin: Pallor, Other (Poor skin turgor) (MIRELLA VANCE MD) Focused Exam Lactate Level 08/18/22 16:05: Lactic Acid Level 1.58 (NICK MATHIS DO) Lactic Acid Level Laboratory Tests Test 08/18/22 16:05 Lactic Acid Level 1.58 MMOL/L (0.50-2.00) (NICK MATHIS DO) Progress/Results/Core Measures Suspected Sepsis SIRS Temperature: Pulse: 111 Respiratory Rate: 38 Laboratory Tests 08/18/22 16:05: White Blood Count 16.8H Blood Pressure 112 /61 Mean: 78 08/18/22 16:05: Lactic Acid Level 1.58 Laboratory Tests 08/18/22 16:05: Creatinine 1.22, INR Comment 1.1, Platelet Count 278, Total Bilirubin 0.8 (MIRELLA VANCE MD) Results/Orders Lab Results Laboratory Tests Test 08/18/22 16:05 08/18/22 17:00 08/18/22 17:50 Range/Units White Blood Count 16.8 H 4.3-11.0 10^3/uL Red Blood Count 4.19 3.80-5.11 10^6/uL Hemoglobin 13.0 11.5-16.0 g/dL Hematocrit 42 35-52 % Mean Corpuscular Volume 101 H 80-99 fL Mean Corpuscular Hemoglobin 31 25-34 pg Mean Corpuscular Hemoglobin Concent 31 L 32-36 g/dL Red Cell Distribution Width 12.7 10.0-14.5 % Platelet Count 278 130-400 10^3/uL Mean Platelet Volume 11.8 9.0-12.2 fL Immature Granulocyte % (Auto) 2 % Neutrophils (%) (Auto) 84 H 42-75 % Lymphocytes (%) (Auto) 7 L 12-44 % Monocytes (%) (Auto) 7 0-12 % Eosinophils (%) (Auto) 0 0-10 % Basophils (%) (Auto) 1 0-10 % Neutrophils # (Auto) 14.1 H 1.8-7.8 10^3/uL Lymphocytes # (Auto) 1.2 1.0-4.0 10^3/uL Monocytes # (Auto) 1.2 H 0.0-1.0 10^3/uL Eosinophils # (Auto) 0.0 0.0-0.3 10^3/uL Basophils # (Auto) 0.1 0.0-0.1 10^3/uL Immature Granulocyte # (Auto) 0.3 H 0.0-0.1 10^3/uL Neutrophils % (Manual) 89 % Lymphocytes % (Manual) 5 % Monocytes % (Manual) 6 % Band Neutrophils % Blood Morphology Comment NORMAL Prothrombin Time 14.3 12.2-14.7 SEC INR Comment 1.1 0.8-1.4 Activated Partial Thromboplast Time 28 24-35 SEC Sodium Level 167 *H 135-145 MMOL/L Potassium Level 4.1 3.6-5.0 MMOL/L Chloride Level 126 H 98-107 MMOL/L Carbon Dioxide Level 29 21-32 MMOL/L Anion Gap 12 5-14 MMOL/L Blood Urea Nitrogen 50 H 7-18 MG/DL Creatinine 1.22 0.60-1.30 MG/DL Estimat Glomerular Filtration Rate 46 BUN/Creatinine Ratio 41 Glucose Level 117 H 70-105 MG/DL Lactic Acid Level 1.58 0.50-2.00 MMOL/L Calcium Level 9.7 8.5-10.1 MG/DL Corrected Calcium 10.3 H 8.5-10.1 MG/DL Total Bilirubin 0.8 0.1-1.0 MG/DL Aspartate Amino Transf (AST/SGOT) 18 5-34 U/L Alanine Aminotransferase (ALT/SGPT) 12 0-55 U/L Alkaline Phosphatase 80 40-136 U/L Total Protein 7.1 6.4-8.2 GM/DL Albumin 3.3 3.2-4.5 GM/DL Procalcitonin 1.33 H <0.10 NG/ML Influenza Type A (RT-PCR) Not Detected Not Detecte Influenza Type B (RT-PCR) Not Detected Not Detecte SARS-CoV-2 RNA (RT-PCR) Not Detected Not Detecte Urine Color YELLOW Urine Clarity SL CLOUDY Urine pH 5.5 5-9 Urine Specific [place] 1.025 H 1.016-1.022 Urine Protein 1+ H NEGATIVE Urine Glucose (UA) NEGATIVE NEGATIVE Urine Ketones NEGATIVE NEGATIVE Urine Nitrite NEGATIVE NEGATIVE Urine Bilirubin NEGATIVE NEGATIVE Urine Urobilinogen 0.2 < = 1.0 MG/DL Urine Leukocyte Esterase TRACE H NEGATIVE Urine RBC (Auto) TRACE-I H NEGATIVE Urine RBC NONE /HPF Urine WBC 2-5 /HPF Urine Squamous Epithelial Cells 0-2 /HPF Urine Crystals NONE /LPF Urine Bacteria MODERATE H /HPF Urine Casts PRESENT /LPF Urine Hyaline Casts 0-2 H /LPF Urine Mucus NEGATIVE /LPF Urine Culture Indicated CULTURE PENDING (NICK MATHIS DO) My Orders Orders - NICK MATHIS DO Lidocaine 2% (Urojet) (Xylocaine Urojet) (08/18/22 17:15) Catheter(Urinary) Insert & Ass 15 (08/18/22 17:07) Ceftriaxone 1 Gm Pre-Mix (Rocephin 1 Gm (08/18/22 17:30) Azithromycin Injection (Zithromax Inject (08/18/22 17:30) (NICK MATHIS DO) Medications Given in ED (NICK MATHIS DO) Vital Signs/I&O 08/18/22 08/18/22 08/18/22 14:50 14:50 16:00 Temp 37.1 36.3 Pulse 111 85 Resp 38 16 B/P (MAP) 112/61 (78) 92/50 (64) Pulse Ox 98 O2 Delivery Nasal Cannula Nasal Cannula Nasal Cannula O2 Flow Rate 3.00 3.00 3.00 08/19/22 00:00 Intake Total 500 ml Balance 500 ml (NICK MATHIS DO) Vital Signs/I&O Capillary Refill : (MIRELLA VANCE MD) Blood Pressure Mean: 78 Progress Note : Progress Note 1700--ASSUMED CARE OF PT AT SHIFT CHANGE. SOME LABS STILL PENDING. PNEUMONIA IS NOTED ON CXR. WILL START IV ANTIBIOTICS AND CONTINUE IV FLUIDS. NO DETERIORATION IN PT'S CONDITION DURING ER STAY. PT IS DNR/DNI. (NICK MATHIS DO) ECG Initial ECG Impression Date: Aug 18, 2022 Initial ECG Impression Time: 15:56 Initial ECG Rate: 114 Initial ECG Rhythm: S.Tach Initial ECG Intervals: Normal Initial ECG Impression: Nonspecific Changes (MIRELLA VANCE MD) Diagnostic Imaging Diagonstic Imaging: Xray Plain Films/CT/US/NM/MRI: chest Comments [facility] [place] NAME: THEODORA ESPINO [facility] REC#: [id number] PT STATUS: REG ER : 1945 PHYSICIAN: MIRELLA VANCE MD ADMIT DATE: 08/18/22/ER Draft Date of Exam:08/18/22 CHEST 1 VIEW, AP/PA ONLY INDICATION: Cough. Low-grade fever. Coarse breath sounds. COMPARISON: 09/20/2021. FINDINGS: Single frontal radiographic view of the chest was obtained and shows new patchy and consolidative airspace opacities in the right base partially obscuring the right hemidiaphragm. Left lung remains clear. No large effusion or pneumothorax is seen on either side. Cardiac silhouette and pulmonary vasculature are within normal limits. Osseous structures show no gross acute abnormalities. IMPRESSION: New right basilar infiltrate appearing opacities. Follow-up to resolution is advised. Dictated on workstation # [id number] Dict: 08/18/22 1617 Trans: 08/18/22 1620 [facility] [id number] Interpreted by: KALEIGH HARO MD Electronically signed by: (MIRELLA VANCE MD) Reviewed: Reviewed by Me (NICK MATHIS DO) Transfer of Care Transfer of Care Time: 17:15 Care transferred to: Dr Mathis (MIRELLA VANCE MD) Departure Communication (Admissions) 1747--SPOKE WITH DR. NEW, ACCEPTS PT FOR ADMIT. RN IS ATTEMPTING TO CONTACT FAMILY AND UPDATE THEM. (NICK MATHIS DO) Impression Primary Impression: RLL pneumonia Additional Impressions: Dehydration Dementia Hypernatremia Sepsis UTI (urinary tract infection) Disposition: ADMITTED INPATIENT Condition: Stable Admissions Decision to Admit Reason: Admit from ER (General) Decision to Admit/Date: Aug 18, 2022 Time/Decision to Admit Time: 17:50 (NICK MATHIS DO) Departure-Patient Inst. Referrals: NO,LOCAL PHYSICIAN (PCP/Family) Primary Care Physician MIRELLA VANCE MD Aug 18, 2022 17:15 NICK MATHIS DO Aug 18, 2022 17:40
[2022-08-18] MEDS ORDERED: cefTRIAXone 1 GM PRE-MIX 50 ML IV ONE (17:30)
[2022-08-18] MEDS ORDERED: AZITHROMYCIN INJECTION 500 MG in NS (IVPB) 250 ML IV ONE (17:30)
[2022-08-18 18:13] LABS: BILIRUBIN,URINE NEGATIVE (NEGATIVE); CLARITY,URINE SL CLOUDY; COLOR,URINE YELLOW; GLUCOSE, URINE (UA) NEGATIVE (NEGATIVE); KETONES,URINE NEGATIVE (NEGATIVE); LEUKOCYTE ESTERASE ,URINE TRACE (NEGATIVE); NITRITE,URINE NEGATIVE (NEGATIVE); PH,URINE 5.5 (5-9); PROTEIN,URINE 1+ (NEGATIVE)
[2022-08-18 18:46] LABS: BACTERIA,URINE MODERATE /HPF; HYALINE CASTS, URINE 0-2 /LPF; SQUAMOUS EPITHELIAL CELL,UR 0-2 /HPF
[2022-08-18 19:45] VITALS: BP 92/50
[2022-08-18] MEDS ORDERED: ONDANSETRON 4 MG/2 ML (SDV) Z0FRAN IV PRN (20:00)
[2022-08-18] MEDS ORDERED: ACETAMINOPHEN 500 MG TAB (TYLENOL) PO PRN (20:00)
[2022-08-18] MEDS ORDERED: ACETAMINOPHEN 650 MG SUPP (TYLENOL) PR PRN (20:00)
[2022-08-18] MEDS: D5 1/2 NS W/KCL 20 MEQ/L 1,000 ML IV SCH (20:43)
[2022-08-19 03:53] VITALS: BP 124/69
[2022-08-19 06:19] LABS: BASOPHILS # (AUTO) 0.1 10^3/uL (0.0-0.1); BASOPHILS % (AUTO) 1 % (0-10); EOSINOPHILS % (AUTO) 0 % (0-10); HEMATOCRIT 39 % (35-52); HEMOGLOBIN 11.7 g/dL (11.5-16.0); LYMPHOCYTES # (AUTO) 0.8 10^3/uL (1.0-4.0); LYMPHOCYTES % (AUTO) 6 % (12-44); MEAN CORPUSCULAR HEMOGLOBIN 31 pg (25-34); MEAN CORPUSCULAR HGB CONC 30 g/dL (32-36); MEAN CORPUSCULAR VOLUME 104 fL (80-99); MEAN PLATELET VOLUME 12.1 fL (9.0-12.2); MONOCYTES # (AUTO) 0.8 10^3/uL (0.0-1.0); MONOCYTES % (AUTO) 5 % (0-12); NEUTROPHILS # (AUTO) 12.3 10^3/uL (1.8-7.8); NEUTROPHILS % (AUTO) 86 % (42-75); PLATELET COUNT 208 10^3/uL (130-400); WHITE BLOOD COUNT 14.3 10^3/uL (4.3-11.0)
[2022-08-19 06:28] LABS: ALBUMIN 2.9 GM/DL (3.2-4.5); POTASSIUM 4.1 MMOL/L (3.6-5.0)
[2022-08-19 06:29] LABS: CALCIUM 8.7 MG/DL (8.5-10.1)
[2022-08-19 06:32] LABS: BILIRUBIN,TOTAL 0.4 MG/DL (0.1-1.0)
[2022-08-19 06:34] LABS: CREATININE SERUM 0.95 MG/DL (0.60-1.30)
[2022-08-19] MEDS: D5 1/2 NS W/KCL 20 MEQ/L 1,000 ML IV SCH (06:34)
--- NOTE | 2022-08-19 08:08 | History & Physical ---
NAHUN NEWMAN 08/19/22 0808: History of Present Illness History of Present Illness Reason for visit/HPI CC: PNA UTI AMS and hypernatremia HPI: 77 F w/ pmh of dementia, copd on day two of admission for PNA UTI AMS dehydration and hypernatremia. Pt was unresponsive this morning. Per ER note, pt was brought in via ems for worsening cough and mental status with failure to thrive. Pt appears cachetic and older than stated age. She is resting in bed and unable to follow commands or respond to any stimulus. Pt baseline is minimally verbal with poor cognitive capabilities. Date of Admission Aug 18, 2022 at 17:50 Date Seen by a Provider: Aug 19, 2022 Time Seen by a Provider: 07:45 I consulted on this patient on 08/19/22 08:06 Attending Physician Sherrill Wise DO Admitting Physician Admitting Physician: Sherrill Wise DO Attending Physician: Sherrill Wise DO Consult Allergies and Home Medications Allergies Coded Allergies: No Known Drug Allergies (Verified , 10/28/17) Patient Home Medication List Home Medication List Reviewed: Yes Acetaminophen (Acetaminophen) 325 Mg Tablet, 650 MG PO Q6H PRN for PAIN-MILD (1- 4), (Reported) Entered as Reported by: JAVIER MARK on 09/20/211826 Last Action: Reviewed Acetaminophen (Acetaminophen) 650 Mg Supp.rect, 650 MG RC Q4H PRN for PAIN-MILD (1-4) OR TEMPATURE, (Reported) Entered as Reported by: JADON NJ on 08/19/221148 Last Action: Reviewed Albuterol Sulfate (Albuterol Sulfate) 2.5 Mg/0.5 Ml Vial.neb, 2.5 MG INH Q4H, (Reported) Entered as Reported by: JADON NJ on 08/19/221148 Last Action: Reviewed Bisacodyl (Bisacodyl) 10 Mg Supp.rect, 10 MG RC DAILY PRN for CONSTIPATION-4TH LINE, (Reported) Entered as Reported by: JADON NJ on 08/19/221148 Last Action: Reviewed Hyoscyamine Sulfate (Hyoscyamine Sulfate) 0.125 Mg Tab.subl, 0.125 MG SL Q4H PRN for INCREASE SECRETIONS, (Reported) Entered as Reported by: JADON NJ on 08/19/221148 Last Action: Reviewed Ipratropium/Albuterol Sulfate (Iprat-Albut 0.5-3(2.5) mg/3 ml) 0.5 Mg-3 Mg (2.5 Mg Base)/3 Ml Ampul.neb, 3 ML NEB Q4H PRN for SHORTNESS OF BREATH, (Reported) Entered as Reported by: JADON NJ on 08/19/221148 Last Action: Reviewed Magnesium Hydroxide (Milk of Magnesia) 400 Mg/5 Ml Oral.susp, 30 ML PO DAILY PRN for CONSTIPATION-7TH LINE, (Reported) Entered as Reported by: JAVIER MARK on 09/20/211826 Last Action: Reviewed Ondansetron (Ondansetron Odt) 4 Mg Tab.rapdis, 4 MG PO Q4H PRN for NAUSEA/VOMITING-1ST LINE, (Reported) Entered as Reported by: JADON NJ on 08/19/221148 Last Action: Reviewed Selenium Sulfide/Aloe Vera (Selsun Blue Moist 1% Shampoo) 1 % Shampoo, 1 APPLIC TP 3X WEEKLY, (Reported) Entered as Reported by: JADON NJ on 08/19/221148 Last Action: Reviewed Sennosides (Senna) 8.6 Mg Tablet, 8.6 MG PO DAILY, (Reported) Entered as Reported by: JADON NJ on 08/19/221148 Last Action: Reviewed Discontinued Medications Albuterol Sulfate (Albuterol Sulfate) 1.25 Mg/3 Ml Vial.neb, 1.25 MG INH Q4H PRN for SHORTNESS OF BREATH, (Reported) Discontinued Reason: No Longer Taking Entered as Reported by: JAVIER MARK on 09/20/211826 Last Action: Discontinued Azithromycin (Zithromax) 250 Mg Tablet, 250 MG PO DAILY Discontinued Reason: No Longer Taking Prescribed by: SHERRILL WISE on 09/23/211222 Last Action: Discontinued Cefdinir (Cefdinir) 300 Mg Capsule, 300 MG PO BID Discontinued Reason: No Longer Taking Prescribed by: SHERRILL WISE on 09/23/211222 Last Action: Discontinued Escitalopram Oxalate (Escitalopram Oxalate) 5 Mg Tablet, 5 MG PO DAILY, (Reported) Discontinued Reason: No Longer Taking Entered as Reported by: JAVIER MARK on 09/20/21 1827 Last Action: Discontinued Prednisone (Prednisone) 20 Mg Tab, 40 MG PO DAILY@0700 Discontinued Reason: No Longer Taking Prescribed by: SHERRILL WISE on 09/23/21 1223 Last Action: Discontinued Salicylic Acid (Selsun Blue) 325 Ml Shampoo, 1 APPLIC TP 3XWEEKLY, (Reported) Discontinued Reason: No Longer Taking Entered as Reported by: ASHWIN HEMPHILL on 09/21/21 0853 Last Action: Discontinued Past Cpegmvr-Yavoce-Kqagud Hx Patient Social History Tobacco Use?: No Smoking Status: Never a Smoker Smokeless Tobacco Frequency: Never a User Use of E-Cig and/or Vaping dev: No Substance use?: No Alcohol Use?: No Pt feels they are or have been: No Immunizations Up To Date Date of Influenza Vaccine: Jun 17, 2021 First/Initial COVID19 Vaccinat: 10-06-2020 Second COVID19 Vaccination Arnel: 10-06-2020 Tetanus Booster (TDap): Unknown Hepatitis A: No Hepatitis B: No PED Vaccines UTD: No Date of Pneumonia Vaccine: Aug 12, 2015 Seasonal Allergies Seasonal Allergies: No Current Status Advance Directives: Yes Advance Directive Location: Copy placed in chart Communicates: Unable To Communicate Primary Language: Bahraini Preferred Spoken Language: Bahraini Is interpretation needed?: No Implanted or Applied Medical D: None Past Medical History Surgeries: Orthopedic Pneumonia, COPD Currently Using CPAP: No Currently Using BIPAP: No High Cholesterol, Valvular Heart Disease Dementia Sexually Transmitted Disease: No HIV/AIDS: No Arthritis Loss of Vision: Bilateral Hearing Impairment: Denies Sleep Difficulties Psoriasis Blood Disorders: No Adverse Reaction/Blood Tranf: No Family Medical History No Pertinent Family Hx Review of Systems ROS-Unable to Obtain: pt unresponsive Physical Exam Vital Signs Vital Signs - First Documented 08/18/22 08/18/22 14:50 16:00 Temp 37.1 Pulse 111 Resp 38 B/P (MAP) 112/61 (78) Pulse Ox 98 O2 Delivery Nasal Cannula O2 Flow Rate 3.00 Capillary Refill : Height, Weight, BMI Height: 4'11.00" Weight: 124lbs. 6.0oz. 56.252997gn; 19.97 BMI Method:Stated General Appearance: Chronically ill, Cachetic HEENT: Normal ENT Inspection Neck: Normal Inspection Respiratory: No Accessory Muscle Use, No Respiratory Distress, Other (diffuse crackels with associated poor air flow) Cardiovascular: No Edema, No Murmur, Normal Peripheral Pulses Gastrointestinal: No Organomegaly, No Pulsatile Mass, Soft, Other (hypoactive bowel sounds) Extremity: No Pedal Edema; No Inflammation Neurologic/Psychiatric: No Alert, No Oriented x3; Other (unresponsive) Skin: Cool, Mottled Lymphatic: No Adenopathy Assessment/Plan Assessment and Plan 1) PNA- continue ceftriaxone and azithromycin therapy, sputum and blood culture pending, continue supplemental O2 2) UTI- continue IV ceftriaxone, urine culture pending 3) hypernatremia- Start IV D5W for dehydration and electrolyte correction with max improvement of Na < 12 meq in first 24 hours to reduce risk of of cerebral edema, monitor electrolytes closely with serial labs Plans to contact family today about further treatment options and goals Admission Diagnosis Admission Status: Inpatient Order (span 2 midnights) Reason for Inpatient Admission: AMS PNA UTI dehydration hypernatremia SHERRILL WISE DO 08/19/22 1754: Allergies and Home Medications Allergies Coded Allergies: No Known Drug Allergies (Verified , 10/28/17) Patient Home Medication List Acetaminophen (Acetaminophen) 325 Mg Tablet, 650 MG PO Q6H PRN for PAIN-MILD (1- 4), (Reported) Entered as Reported by: JAVIER MARK on 09/20/21 919 Last Action: Reviewed Acetaminophen (Acetaminophen) 650 Mg Supp.rect, 650 MG RC Q4H PRN for PAIN-MILD (1-4) OR TEMPATURE, (Reported) Entered as Reported by: JADON NJ on 08/19/221148 Last Action: Reviewed Albuterol Sulfate (Albuterol Sulfate) 2.5 Mg/0.5 Ml Vial.neb, 2.5 MG INH Q4H, (Reported) Entered as Reported by: JADON NJ on 08/19/221148 Last Action: Reviewed Bisacodyl (Bisacodyl) 10 Mg Supp.rect, 10 MG RC DAILY PRN for CONSTIPATION-4TH LINE, (Reported) Entered as Reported by: JADON NJ on 08/19/221148 Last Action: Reviewed Hyoscyamine Sulfate (Hyoscyamine Sulfate) 0.125 Mg Tab.subl, 0.125 MG SL Q4H PRN for INCREASE SECRETIONS, (Reported) Entered as Reported by: JADON NJ on 08/19/221148 Last Action: Reviewed Ipratropium/Albuterol Sulfate (Iprat-Albut 0.5-3(2.5) mg/3 ml) 0.5 Mg-3 Mg (2.5 Mg Base)/3 Ml Ampul.neb, 3 ML NEB Q4H PRN for SHORTNESS OF BREATH, (Reported) Entered as Reported by: JADON NJ on 08/19/221148 Last Action: Reviewed Magnesium Hydroxide (Milk of Magnesia) 400 Mg/5 Ml Oral.susp, 30 ML PO DAILY PRN for CONSTIPATION-7TH LINE, (Reported) Entered as Reported by: JAVIER MARK on 09/20/211826 Last Action: Reviewed Ondansetron (Ondansetron Odt) 4 Mg Tab.rapdis, 4 MG PO Q4H PRN for NAUSEA/VOMITING-1ST LINE, (Reported) Entered as Reported by: JADON NJ on 08/19/221148 Last Action: Reviewed Selenium Sulfide/Aloe Vera (Selsun Blue Moist 1% Shampoo) 1 % Shampoo, 1 APPLIC TP 3X WEEKLY, (Reported) Entered as Reported by: JADON NJ on 08/19/221148 Last Action: Reviewed Sennosides (Senna) 8.6 Mg Tablet, 8.6 MG PO DAILY, (Reported) Entered as Reported by: JADON NJ on 08/19/221148 Last Action: Reviewed Discontinued Medications Albuterol Sulfate (Albuterol Sulfate) 1.25 Mg/3 Ml Vial.neb, 1.25 MG INH Q4H PRN for SHORTNESS OF BREATH, (Reported) Discontinued Reason: No Longer Taking Entered as Reported by: JAVIER MARK on 09/20/211826 Last Action: Discontinued Azithromycin (Zithromax) 250 Mg Tablet, 250 MG PO DAILY Discontinued Reason: No Longer Taking Prescribed by: SHERRILL WISE on 09/23/211222 Last Action: Discontinued Cefdinir (Cefdinir) 300 Mg Capsule, 300 MG PO BID Discontinued Reason: No Longer Taking Prescribed by: SEHRRILL WISE on 09/23/211222 Last Action: Discontinued Escitalopram Oxalate (Escitalopram Oxalate) 5 Mg Tablet, 5 MG PO DAILY, (Reported) Discontinued Reason: No Longer Taking Entered as Reported by: JAVIER MARK on 09/20/21 1827 Last Action: Discontinued Prednisone (Prednisone) 20 Mg Tab, 40 MG PO DAILY@0700 Discontinued Reason: No Longer Taking Prescribed by: SHERRILL WISE on 09/23/21 1223 Last Action: Discontinued Salicylic Acid (Selsun Blue) 325 Ml Shampoo, 1 APPLIC TP 3XWEEKLY, (Reported) Discontinued Reason: No Longer Taking Entered as Reported by: ASHWIN HEMPHILL on 09/21/21 0853 Last Action: Discontinued Review of Systems Constitutional: weakness Respiratory: cough, dyspnea on exertion, short of breath Cardiovascular: No no symptoms reported, No see HPI, No chest pain, No edema, No Hx of Intervention, No palpitations, No syncope, No vascular heart diseas, No other Gastrointestinal: loss of appetite Genitourinary: decreased output Musculoskeletal: muscle weakness Skin: No no symptoms reported, No see HPI, No change in color, No change in ted r/nails, No dryness, No hx of skin cancer, No lesions, No lumps, No pruritus, No rash, No other Psychiatric/Neurological: Weakness Supervisory-Addendum Brief Verification & Attestation Participated in pt care: history, physical Personally performed: exam, history, supervision of care Care discussed with: Medical Student Procedures: n/a Results interpretation: Verified all documentation Verification and Attestation of Medical Student E/M Service A medical student performed and documented this service in my presence. I reviewed and verified all information documented by the medical student and made modifications to such information, when appropriate. I personally performed the physical exam and medical decision making. Sherrill Wise, Aug 19, 2022,17:52 Also COPD and alzheimer's dementia. Is awake but does not answer questions. Will discuss care with sister who is her guardian. NAHUN NEWMAN Aug 19, 2022 08:08 SHERRILL WISE DO Aug 19, 2022 17:54
[2022-08-19 08:28] VITALS: BP 103/59
[2022-08-19] MEDS: D5W 1000 ML IV SOLUTION 1,000 ML IV SCH ×2 (09:09→17:24)
[2022-08-19 11:27] VITALS: BP 101/58
[2022-08-19] MEDS ORDERED: BISA10SU8 RC (11:49)
[2022-08-19] MEDS ORDERED: IPRA3AMP31 NEB (11:49)
[2022-08-19] MEDS ORDERED: HYOS-19 SL (11:49)
[2022-08-19] MEDS ORDERED: SELE207S7 TP (11:49)
[2022-08-19] MEDS ORDERED: ALB0.5V INH (11:49)
[2022-08-19] MEDS ORDERED: ACET650S15 RC (11:49)
[2022-08-19] MEDS ORDERED: ONDA4TAB11 PO (11:49)
[2022-08-19] MEDS ORDERED: SENN-234 PO (11:49)
[2022-08-19 16:46] VITALS: BP 100/51
[2022-08-19] MEDS: cefTRIAXone 1 GM PRE-MIX 50 ML IV SCH (17:23)
[2022-08-19] MEDS: AZITHROMYCIN 500 MG/NS 250 ML IVPB IV SCH ×2 (17:24)
[2022-08-19 19:53] VITALS: BP 110/51
[2022-08-20 00:21] VITALS: BP 100/56
[2022-08-20 04:10] VITALS: BP 106/67
[2022-08-20] MEDS: D5W 1000 ML IV SOLUTION 1,000 ML IV SCH ×3 (05:31→17:41)
[2022-08-20 06:27] LABS: BASOPHILS # (AUTO) 0.1 10^3/uL (0.0-0.1); BASOPHILS % (AUTO) 1 % (0-10); EOSINOPHILS # (AUTO) 0.1 10^3/uL (0.0-0.3); EOSINOPHILS % (AUTO) 1 % (0-10); HEMATOCRIT 34 % (35-52); HEMOGLOBIN 10.5 g/dL (11.5-16.0); LYMPHOCYTES # (AUTO) 0.9 10^3/uL (1.0-4.0); LYMPHOCYTES % (AUTO) 7 % (12-44); MEAN CORPUSCULAR HEMOGLOBIN 31 pg (25-34); MEAN CORPUSCULAR HGB CONC 31 g/dL (32-36); MEAN CORPUSCULAR VOLUME 101 fL (80-99); MEAN PLATELET VOLUME 12.5 fL (9.0-12.2); MONOCYTES # (AUTO) 0.9 10^3/uL (0.0-1.0); MONOCYTES % (AUTO) 7 % (0-12); NEUTROPHILS # (AUTO) 10.9 10^3/uL (1.8-7.8); NEUTROPHILS % (AUTO) 83 % (42-75); PLATELET COUNT 160 10^3/uL (130-400); WHITE BLOOD COUNT 13.1 10^3/uL (4.3-11.0)
[2022-08-20 06:50] LABS: ALBUMIN 2.5 GM/DL (3.2-4.5); BILIRUBIN,TOTAL 0.6 MG/DL (0.1-1.0); CALCIUM 8.2 MG/DL (8.5-10.1); CREATININE SERUM 0.82 MG/DL (0.60-1.30); POTASSIUM 3.6 MMOL/L (3.6-5.0); TOTAL PROTEIN 5.4 GM/DL (6.4-8.2)
[2022-08-20 07:12] VITALS: BP 113/55
--- NOTE | 2022-08-20 08:58 | Progress Note ---
NAHUN NEWMAN 08/20/22 0858: Subjective Date Seen by a Provider: Aug 20, 2022 Time Seen by a Provider: 08:00 Subjective/Events-last exam 77 F with pmh of demetia and copd is on day 3 of admision for PNA UTI dehydration and hypernatremia. Pt was minimally responsive today and unable to provide any information. Today she was resting comfortably in bed and was able to open eyes and mumble sounds. Pt still continues to not eat or drink much. Review of Systems Pt unable to provide due to cognitive state Focused Exam Lactate Level 08/18/22 16:05: Lactic Acid Level 1.58 Objective Exam Last Set of Vital Signs Vital Signs Date Time Temp Pulse Resp B/P (MAP) Pulse Ox O2 Delivery O2 Flow Rate FiO2 08/20/22 07:12 36.4 88 18 113/55 (74) 95 Nasal Cannula 2.00 Capillary Refill : I&O Intake and Output 08/20/22 00:00 Intake Total 120 ml Output Total 700 ml Balance -580 ml Intake Oral 120 ml Output Urine Total 700 ml General: Alert HEENT: Atraumatic Neck: No Thyromegaly, No LAD Lungs: Other (diffuse crackles in all lung horner) Heart: Regular Rate Abdomen: No Masses, Other (hypoactive bowel sounds) Extremities: No Edema, Normal Pulses Skin: No Rashes, No Significant Lesion Neuro: Other (deteriated cognitive state ) Psych/Mental Status: Other (mental ststau poor ) Results Lab Laboratory Tests 08/20/22 05:57: White Blood Count 13.1H, Red Blood Count 3.41L, Hemoglobin 10.5L, Hematocrit 34L , Mean Corpuscular Volume 101H, Mean Corpuscular Hemoglobin 31, Mean Corpuscular Hemoglobin Concent 31L, Red Cell Distribution Width 12.9, Platelet Count 160, Mean Platelet Volume 12.5H, Immature Granulocyte % (Auto) 2, Neutrophils (%) (Auto) 83H, Lymphocytes (%) (Auto) 7L, Monocytes (%) (Auto) 7, Eosinophils (%) (Auto) 1, Basophils (%) (Auto) 1, Neutrophils # (Auto) 10.9H, Lymphocytes # (Auto) 0.9L, Monocytes # (Auto) 0.9, Eosinophils # (Auto) 0.1, Basophils # (Auto) 0.1, Immature Granulocyte # (Auto) 0.3H, Sodium Level 154H, Potassium Level 3.6, Chloride Level 123H, Carbon Dioxide Level 22, Anion Gap 9, Blood Urea Nitrogen 26H, Creatinine 0.82, Estimat Glomerular Filtration Rate 74, BUN/Creatinine Ratio 32, Glucose Level 132H, Calcium Level 8.2L, Corrected Calcium 9.4, Total Bilirubin 0.6, Aspartate Amino Transf (AST/SGOT) 20, Alanine Aminotransferase (ALT/SGPT) 15, Alkaline Phosphatase 71, Total Protein 5.4L, Albumin 2.5L Microbiology 08/18/22 Blood Culture - Preliminary, Resulted No growth Assessment/Plan Assessment/Plan Assess & Plan/Chief Complaint 1) PNA- continue ceftriaxone and azithromycin therapy, sputum culture pending, continue supplemental O2, blood cultures negative, start duo-neb therapy 2) UTI- continue IV ceftriaxone, urine culture pending 3) hypernatremia- continue IV D5W for dehydration and electrolyte correction, monitor electrolytes closely with serial labs discussed with pt about plans to contact family today about further treatment options and goals Clinical Quality Measures Admission Status Admission Dx 1) PNA- continue ceftriaxone and azithromycin therapy, sputum and blood culture pending, continue supplemental O2 2) UTI- continue IV ceftriaxone, urine culture pending 3) hypernatremia- Start IV D5W for dehydration and electrolyte correction with max improvement of Na < 12 meq in first 24 hours to reduce risk of of cerebral edema, monitor electrolytes closely with serial labs Plans to contact family today about further treatment options and goals SHERRILL NEW DO 08/20/22 1140: Supervisory-Addendum Brief Verification & Attestation Participated in pt care: history, physical Personally performed: exam, history, supervision of care Care discussed with: Medical Student Procedures: n/a Results interpretation: Verified all documentation Verification and Attestation of Medical Student E/M Service A medical student performed and documented this service in my presence. I reviewed and verified all information documented by the medical student and made modifications to such information, when appropriate. I personally performed the physical exam and medical decision making. Sherrill New, Aug 20, 2022,11:36 Discussed status with sister, Denisha. Discussed possibly needing to go back on hospice and even comfort care if patient continues to not drink/eat. Did drink one clear ensure this morning. Will continue with IVFs and through the weekend and see how she does. Add lovenox for DVT prophylaxis and protonix for GI prophylaxis. NAHUN NEWMAN Aug 20, 2022 08:58 SHERRILL NEW DO Aug 20, 2022 11:40
[2022-08-20] MEDS ORDERED: RT-ALBUTEROL/IPRATROPIUM 3 ML (DUONEB) VIAL INH NR (11:00)
[2022-08-20 11:29] VITALS: BP 99/55
[2022-08-20] MEDS ORDERED: PANTOPRAZOLE 40 MG (PROTONIX) VIAL IV ONE ×2 (11:45→12:00)
[2022-08-20] MEDS ORDERED: RT-ALBUTEROL/IPRATROPIUM 3 ML (DUONEB) VIAL INH SCH (14:00)
[2022-08-20 15:30] VITALS: BP 110/54
[2022-08-20] MEDS: cefTRIAXone 1 GM PRE-MIX 50 ML IV SCH (17:43)
[2022-08-20] MEDS: AZITHROMYCIN 500 MG/NS 250 ML IVPB IV SCH ×2 (17:47)
[2022-08-20 19:33] VITALS: BP 101/46
[2022-08-20] MEDS: ENOXAPARIN 40 MG/0.4 ML (LOVENOX) SYR SC SCH (20:21)
[2022-08-21] VITALS: BP 88/46
[2022-08-21 03:38] VITALS: BP 95/45
[2022-08-21] MEDS: D5W 1000 ML IV SOLUTION 1,000 ML IV SCH ×2 (05:16→15:13)
[2022-08-21 05:51] LABS: BASOPHILS # (AUTO) 0.1 10^3/uL (0.0-0.1); BASOPHILS % (AUTO) 1 % (0-10); MEAN PLATELET VOLUME 12.7 fL (9.0-12.2)
[2022-08-21 05:53] LABS: EOSINOPHILS # (AUTO) 0.2 10^3/uL (0.0-0.3); EOSINOPHILS % (AUTO) 2 % (0-10); HEMATOCRIT 35 % (35-52); HEMOGLOBIN 10.4 g/dL (11.5-16.0); LYMPHOCYTES # (AUTO) 1.1 10^3/uL (1.0-4.0); LYMPHOCYTES % (AUTO) 11 % (12-44); MEAN CORPUSCULAR HEMOGLOBIN 31 pg (25-34); MEAN CORPUSCULAR HGB CONC 30 g/dL (32-36); MEAN CORPUSCULAR VOLUME 103 fL (80-99); MONOCYTES # (AUTO) 0.9 10^3/uL (0.0-1.0); MONOCYTES % (AUTO) 9 % (0-12); NEUTROPHILS # (AUTO) 7.6 10^3/uL (1.8-7.8); NEUTROPHILS % (AUTO) 77 % (42-75); PLATELET COUNT 118 10^3/uL (130-400); WHITE BLOOD COUNT 9.8 10^3/uL (4.3-11.0)
[2022-08-21 08:03] VITALS: BP 109/55
[2022-08-21] MEDS: PANTOPRAZOLE 40 MG (PROTONIX) VIAL IV SCH (08:33)
[2022-08-21 11:56] VITALS: BP 113/45
[2022-08-21 12:07] LABS: ALBUMIN 2.2 GM/DL (3.2-4.5); BILIRUBIN,TOTAL 0.3 MG/DL (0.1-1.0); CALCIUM 7.9 MG/DL (8.5-10.1); CREATININE SERUM 0.76 MG/DL (0.60-1.30); POTASSIUM 3.9 MMOL/L (3.6-5.0)
--- NOTE | 2022-08-21 12:41 | Progress Note - Hospitalist ---
Subjective HPI/CC On Admission Date Seen by Provider: Aug 21, 2022 Time Seen by Provider: 11:00 Subjective/Events-last exam Patient sleeping with eyes closed does not arouse to verbal stimulation. Reportedly at baseline the patient is nonverbal due to end-stage dementia minimal if any p.o. intake. Focused Exam Lactate Level 08/18/22 16:05: Lactic Acid Level 1.58 Objective Exam Vital Signs Vital Signs Date Time Temp Pulse Resp B/P (MAP) Pulse Ox O2 Delivery O2 Flow Rate FiO2 08/21/22 11:56 36.8 79 18 113/45 (67) 100 Nasal Cannula 2.00 Capillary Refill : General Appearance: No Apparent Distress, Chronically ill Respiratory: Other (Patient tachypneic with diffuse rhonchi throughout) Cardiovascular: Regular Rate, Rhythm, Other (No murmur appreciated but heart sounds difficult to appreciate over respiratory congestion.) Extremity: Other (No peripheral edema severe symmetrical sarcopenia.) Results/Procedures Lab Laboratory Tests 08/21/22 05:45 Patient resulted labs reviewed. Assessment/Plan Assessment and Plan Assess & Plan/Chief Complaint 1) PNA- continue ceftriaxone and azithromycin therapy, sputum and blood culture pending, continue supplemental O2 2) UTI- continue IV ceftriaxone, urine culture pending 3) hypernatremia- Start IV D5W for dehydration and electrolyte correction with max improvement of Na < 12 meq in first 24 hours to reduce risk of of cerebral edema, monitor electrolytes closely with serial labs. Considering end-stage dementia prognosis extremely poor apparently had been on hospice in the past but certainly advocate for resumption on discharge from the hospital. Critical Care Critically Ill Patient KATELIN JOHNSON MD Aug 21, 2022 12:41
[2022-08-21] MEDS: AZITHROMYCIN 500 MG/NS 250 ML IVPB IV SCH ×2 (16:50)
[2022-08-21] MEDS: cefTRIAXone 1 GM PRE-MIX 50 ML IV SCH (16:50)
[2022-08-21 17:00] VITALS: BP 105/51
[2022-08-21] MEDS: ENOXAPARIN 40 MG/0.4 ML (LOVENOX) SYR SC SCH (20:20)
[2022-08-21 21:00] VITALS: BP 115/52
[2022-08-22] VITALS (7 sets, daily range): BP systolic 100–117; BP diastolic 52–62
[2022-08-22] MEDS: D5W 1000 ML IV SOLUTION 1,000 ML IV SCH ×3 (02:25→23:20)
[2022-08-22 06:39] LABS: BASOPHILS % (AUTO) 0 % (0-10); EOSINOPHILS # (AUTO) 0.1 10^3/uL (0.0-0.3); EOSINOPHILS % (AUTO) 2 % (0-10); HEMOGLOBIN 9.6 g/dL (11.5-16.0); MEAN CORPUSCULAR VOLUME 95 fL (80-99)
[2022-08-22 06:42] LABS: HEMATOCRIT 29 % (35-52); LYMPHOCYTES # (AUTO) 0.8 10^3/uL (1.0-4.0); LYMPHOCYTES % (AUTO) 10 % (12-44); MEAN CORPUSCULAR HEMOGLOBIN 31 pg (25-34); MEAN CORPUSCULAR HGB CONC 33 g/dL (32-36); MONOCYTES # (AUTO) 0.6 10^3/uL (0.0-1.0); MONOCYTES % (AUTO) 8 % (0-12); NEUTROPHILS # (AUTO) 5.9 10^3/uL (1.8-7.8); NEUTROPHILS % (AUTO) 79 % (42-75); PLATELET COUNT 118 10^3/uL (130-400); WHITE BLOOD COUNT 7.4 10^3/uL (4.3-11.0)
[2022-08-22 07:08] LABS: ALBUMIN 2.1 GM/DL (3.2-4.5); BILIRUBIN,TOTAL 0.4 MG/DL (0.1-1.0); CREATININE SERUM 0.63 MG/DL (0.60-1.30); POTASSIUM 3.8 MMOL/L (3.6-5.0); TOTAL PROTEIN 5.1 GM/DL (6.4-8.2)
[2022-08-22] MEDS: PANTOPRAZOLE 40 MG (PROTONIX) VIAL IV SCH (09:10)
--- NOTE | 2022-08-22 11:45 | Progress Note - Hospitalist ---
Subjective HPI/CC On Admission Date Seen by Provider: Aug 22, 2022 Time Seen by Provider: 10:00 Subjective/Events-last exam Patient opens eyes to verbal stimulation does not appear to be in acute distress but noncommunicative. P.o. intake has been minimal despite attempts at feeding. Objective Exam Vital Signs Vital Signs Date Time Temp Pulse Resp B/P (MAP) Pulse Ox O2 Delivery O2 Flow Rate FiO2 08/22/22 08:00 36.5 77 20 107/62 (77) 99 Nasal Cannula 3.00 Capillary Refill : General Appearance: No Apparent Distress, Chronically ill Respiratory: Other (Mild expiratory wheezing with shallow respiration no rales or rhonchi noted.) Cardiovascular: Regular Rate, Rhythm Gastrointestinal: Normal Bowel Sounds, Non Tender, Soft Results/Procedures Lab Laboratory Tests 08/22/22 05:44 Patient resulted labs reviewed. Assessment/Plan Assessment and Plan Assess & Plan/Chief Complaint 1) PNA- continue ceftriaxone and azithromycin therapy, sputum and blood culture pending, continue supplemental O2 2) hypernatremia- Resolved. 3. End-stage dementia with inadequate p.o. intake. This patient will be best served with transfer back to the custodial on hospice as I suspect life expectancy can be measured in days or weeks. Critical Care Critically Ill Patient KATELIN JOHNSON MD Aug 22, 2022 11:45
[2022-08-22] MEDS: AZITHROMYCIN 500 MG/NS 250 ML IVPB IV SCH ×2 (16:31)
[2022-08-22] MEDS: cefTRIAXone 1 GM PRE-MIX 50 ML IV SCH (16:31)
[2022-08-22] MEDS: ENOXAPARIN 40 MG/0.4 ML (LOVENOX) SYR SC SCH (20:47)
[2022-08-22] MEDS: HYDROmorphone 2 MG/ML VIAL (DILAUDID) IVP PRN (22:35)
[2022-08-23 03:19] VITALS: BP 130/61
[2022-08-23 05:50] LABS: BASOPHILS % (AUTO) 0 % (0-10); EOSINOPHILS # (AUTO) 0.1 10^3/uL (0.0-0.3); EOSINOPHILS % (AUTO) 1 % (0-10); HEMATOCRIT 28 % (35-52); HEMOGLOBIN 9.2 g/dL (11.5-16.0); LYMPHOCYTES # (AUTO) 0.7 10^3/uL (1.0-4.0); LYMPHOCYTES % (AUTO) 12 % (12-44); MEAN CORPUSCULAR HEMOGLOBIN 31 pg (25-34); MEAN CORPUSCULAR HGB CONC 33 g/dL (32-36); MEAN CORPUSCULAR VOLUME 93 fL (80-99); MEAN PLATELET VOLUME 12.5 fL (9.0-12.2); MONOCYTES # (AUTO) 0.5 10^3/uL (0.0-1.0); MONOCYTES % (AUTO) 10 % (0-12); NEUTROPHILS # (AUTO) 4.1 10^3/uL (1.8-7.8); NEUTROPHILS % (AUTO) 76 % (42-75); PLATELET COUNT 141 10^3/uL (130-400); WHITE BLOOD COUNT 5.4 10^3/uL (4.3-11.0)
[2022-08-23 06:25] LABS: BILIRUBIN,TOTAL 0.3 MG/DL (0.1-1.0); CALCIUM 7.7 MG/DL (8.5-10.1); CREATININE SERUM 0.6 MG/DL (0.60-1.30); POTASSIUM 3.2 MMOL/L (3.6-5.0); TOTAL PROTEIN 4.5 GM/DL (6.4-8.2)
[2022-08-23 08:08] VITALS: BP 108/53
--- NOTE | 2022-08-23 08:19 | Progress Note ---
NAHUN NEWMAN 08/23/22 0819: Subjective Date Seen by a Provider: Aug 23, 2022 Subjective/Events-last exam 77 F with pmh of dementia on day 5 of admission for dehydration, PNA, and hypernatremia. Pt is able to be aroused, open eyes, and minimally interact with external stimuli. but no information obtained b/c pt is unable to communicate due to current AMS. Pt appeared to be in no acute distress. PO intake has remained minimal Review of Systems Pt unable to provide due to cognitive state Objective Exam Last Set of Vital Signs Vital Signs Date Time Temp Pulse Resp B/P (MAP) Pulse Ox O2 Delivery O2 Flow Rate FiO2 08/23/22 08:08 36.7 68 18 108/53 (71) 97 Nasal Cannula 2.00 Capillary Refill : I&O Intake and Output 08/23/22 00:00 Intake Total 1100 ml Output Total 2900 ml Balance -1800 ml Intake Oral 100 ml IV Total 1000 ml Output Urine Total 2900 ml # Bowel Movements 1 General: Alert HEENT: Atraumatic, EOMI Neck: No Thyromegaly, No LAD Lungs: Other (rales and wheezes ) Heart: Regular Rate, No Murmurs Abdomen: Soft, No Masses, Other (hypoactive BS ) Extremities: No Edema, Normal Pulses Skin: No Rashes, No Significant Lesion Psych/Mental Status: Other (confused) Results Lab Laboratory Tests 08/23/22 05:40: White Blood Count 5.4, Red Blood Count 2.96L, Hemoglobin 9.2L, Hematocrit 28L, Mean Corpuscular Volume 93, Mean Corpuscular Hemoglobin 31, Mean Corpuscular Hemoglobin Concent 33, Red Cell Distribution Width 12.1, Platelet Count 141, Mean Platelet Volume 12.5H, Immature Granulocyte % (Auto) 1, Neutrophils (%) (Auto) 76H, Lymphocytes (%) (Auto) 12, Monocytes (%) (Auto) 10, Eosinophils (%) (Auto) 1, Basophils (%) (Auto) 0, Neutrophils # (Auto) 4.1, Lymphocytes # (Auto) 0.7L, Monocytes # (Auto) 0.5, Eosinophils # (Auto) 0.1, Basophils # (Auto) 0.0, Immature Granulocyte # (Auto) 0.1, Sodium Level 141, Potassium Level 3.2L, Chloride Level 106, Carbon Dioxide Level 28, Anion Gap 7, Blood Urea Nitrogen 8, Creatinine 0.60, Estimat Glomerular Filtration Rate 92, BUN/Creatinine Ratio 13, Glucose Level 107H, Calcium Level 7.7L, Corrected Calcium 9.3, Total Bilirubin 0.3, Aspartate Amino Transf (AST/SGOT) 52H, Alanine Aminotransferase (ALT/SGPT) 25, Alkaline Phosphatase 70, Total Protein 4.5L, Albumin 2.0L Microbiology 08/18/22 Urine Culture - Final, Complete Gram Pos Mixed Bacterial Ilsa See Comments 08/18/22 Blood Culture - Preliminary, Resulted No growth Assessment/Plan Assessment/Plan Assess & Plan/Chief Complaint 1) PNA- continue ceftriaxone and azithromycin therapy, sputum culture pending, continue supplemental O2, blood cultures negative, start duo-neb therapy 2) UTI- continue IV ceftriaxone, urine culture pending 3) hypernatremia- continue IV D5W for dehydration and electrolyte correction, monitor electrolytes closely with serial labs 4) Malnourished- continue feeding attempts discussed with pt about plans to contact family today about further treatment op tions and goals, Per Dr. Coronado, pt would most likely benefit to return back to senior living, plans to speak with sister today about placement Clinical Quality Measures Admission Status Admission Dx 1) PNA- continue ceftriaxone and azithromycin therapy, sputum and blood culture pending, continue supplemental O2 2) UTI- continue IV ceftriaxone, urine culture pending 3) hypernatremia- Start IV D5W for dehydration and electrolyte correction with max improvement of Na < 12 meq in first 24 hours to reduce risk of of cerebral edema, monitor electrolytes closely with serial labs Plans to contact family today about further treatment options and goals SHERRILL NEW DO 08/23/22 1259: Supervisory-Addendum Brief Verification & Attestation Participated in pt care: history, physical Personally performed: exam, history, supervision of care Care discussed with: Medical Student Procedures: n/a Results interpretation: Verified all documentation Verification and Attestation of Medical Student E/M Service A medical student performed and documented this service in my presence. I reviewed and verified all information documented by the medical student and made modifications to such information, when appropriate. I personally performed the physical exam and medical decision making. Sherrill New, Aug 23, 2022,12:53 Patient a little more alert but still not eating or drinking. Discussed with sister Denisha and is okay with going back on hospice so will do palliative care consult for hospice with DC back to [place]. NAHUN NEWMAN Aug 23, 2022 08:19 SHERRILL NEW DO Aug 23, 2022 12:59
[2022-08-23] MEDS: PANTOPRAZOLE 40 MG (PROTONIX) VIAL IV SCH (08:37)
[2022-08-23] MEDS: D5W 1000 ML IV SOLUTION 1,000 ML IV SCH ×2 (09:28→20:27)
[2022-08-23] MEDS: HYDROmorphone 2 MG/ML VIAL (DILAUDID) IVP PRN (10:29)
[2022-08-23 11:44] VITALS: BP 110/55
[2022-08-23 15:31] VITALS: BP 121/56
[2022-08-23 19:19] VITALS: BP 113/55
[2022-08-23] MEDS: ENOXAPARIN 40 MG/0.4 ML (LOVENOX) SYR SC SCH (20:27)
[2022-08-24] VITALS (7 sets, daily range): BP systolic 113–137; BP diastolic 56–80
[2022-08-24 06:03] LABS: BASOPHILS % (AUTO) 0 % (0-10); EOSINOPHILS # (AUTO) 0.1 10^3/uL (0.0-0.3); EOSINOPHILS % (AUTO) 1 % (0-10); HEMATOCRIT 30 % (35-52); HEMOGLOBIN 9.8 g/dL (11.5-16.0); LYMPHOCYTES # (AUTO) 0.6 10^3/uL (1.0-4.0); LYMPHOCYTES % (AUTO) 14 % (12-44); MEAN CORPUSCULAR HEMOGLOBIN 31 pg (25-34); MEAN CORPUSCULAR HGB CONC 33 g/dL (32-36); MEAN CORPUSCULAR VOLUME 92 fL (80-99); MEAN PLATELET VOLUME 12.3 fL (9.0-12.2); MONOCYTES # (AUTO) 0.5 10^3/uL (0.0-1.0); MONOCYTES % (AUTO) 12 % (0-12); NEUTROPHILS % (AUTO) 71 % (42-75); PLATELET COUNT 175 10^3/uL (130-400); WHITE BLOOD COUNT 4.3 10^3/uL (4.3-11.0)
[2022-08-24] MEDS: D5W 1000 ML IV SOLUTION 1,000 ML IV SCH (06:40)
[2022-08-24 06:45] LABS: ALBUMIN 2.1 GM/DL (3.2-4.5); BILIRUBIN,TOTAL 0.3 MG/DL (0.1-1.0); CREATININE SERUM 0.57 MG/DL (0.60-1.30)
[2022-08-24 06:59] LABS: CALCIUM 7.9 MG/DL (8.5-10.1)
[2022-08-24] MEDS: PANTOPRAZOLE 40 MG (PROTONIX) VIAL IV SCH (08:29)
--- NOTE | 2022-08-24 12:57 | Progress Note ---
Subjective Date Seen by a Provider: Aug 24, 2022 Time Seen by a Provider: 12:54 Subjective/Events-last exam Fwup hypernatremia, COPD exacerbation, pneumonia, end stage Alzheimer's. Still not eating or drinking. Objective Exam Vital Signs Date Time Temp Pulse Resp B/P (MAP) Pulse Ox O2 Delivery O2 Flow Rate FiO2 08/24/22 12:50 71 08/24/22 11:16 36.4 69 18 126/56 (79) 100 Nasal Cannula 2.00 2.00 08/24/22 08:00 Nasal Cannula 2.00 08/24/22 07:30 36.4 69 16 126/56 (79) 95 Nasal Cannula 2.00 08/24/22 07:00 67 08/24/22 03:43 36.3 79 16 121/58 (79) 95 Nasal Cannula 2.00 2.00 08/24/22 01:00 70 08/24/22 00:00 36.3 76 16 120/56 (77) 95 Nasal Cannula 2.00 08/23/22 20:00 Nasal Cannula 2.00 08/23/22 19:19 36.4 73 18 113/55 (74) 98 Nasal Cannula 2.00 08/23/22 19:00 73 08/23/22 15:31 36.2 72 20 121/56 (77) 96 Nasal Cannula 2.00 08/23/22 13:03 71 I & O 08/24/22 07:00 Intake Total 1000 ml Output Total 1800 ml Balance -800 ml Capillary Refill : General Appearance: No Apparent Distress Respiratory: Decreased Breath Sounds Cardiovascular: Regular Rate, Rhythm Gastrointestinal: normal bowel sounds, non tender, soft Neurologic/Psychiatric: Alert, Disoriented (will awaken but garbled speech) Results Lab Laboratory Tests 08/24/22 05:35: White Blood Count 4.3, Red Blood Count 3.21L, Hemoglobin 9.8L, Hematocrit 30L, Mean Corpuscular Volume 92, Mean Corpuscular Hemoglobin 31, Mean Corpuscular Hemoglobin Concent 33, Red Cell Distribution Width 12.3, Platelet Count 175, Mean Platelet Volume 12.3H, Immature Granulocyte % (Auto) 1, Neutrophils (%) (Auto) 71, Lymphocytes (%) (Auto) 14, Monocytes (%) (Auto) 12, Eosinophils (%) (Auto) 1, Basophils (%) (Auto) 0, Neutrophils # (Auto) 3.0, Lymphocytes # (Auto) 0.6L, Monocytes # (Auto) 0.5, Eosinophils # (Auto) 0.1, Basophils # (Auto) 0.0, Immature Granulocyte # (Auto) 0.0, Sodium Level 139, Potassium Level 3.0L, Chloride Level 104, Carbon Dioxide Level 31, Anion Gap 4L, Blood Urea Nitrogen 5L, Creatinine 0.57L, Estimat Glomerular Filtration Rate 94, BUN/Creatinine Ratio 9, Glucose Level 109H, Calcium Level 7.9L, Corrected Calcium 9.4, Total Bilirubin 0.3, Aspartate Amino Transf (AST/SGOT) 82H, Alanine Aminotransferase (ALT/SGPT) 40, Alkaline Phosphatase 82, Total Protein 5.0L, Albumin 2.1L Microbiology 08/18/22 Urine Culture - Final, Complete Gram Pos Mixed Bacterial Ilsa See Comments 08/18/22 Blood Culture - Final, Complete No growth Assessment/Plan Assessment/Plan Assess & Plan/Chief Complaint 1. Pneumonia--repeat CXR now, abx finished yesterday 2. Hypernatremia/Dehydration--resolved 3. Hypokalemia--replace potassium 4. End Stage Dementia with adult failure to thrive/anorexia--back to NH with hospice--ready for DC today if able SHERRILL NEW DO Aug 24, 2022 12:57
[2022-08-24] MEDS: 1/2 NS W/KCL 20 MEQ/L 1,000 ML IV SCH ×2 (13:25→23:11)
[2022-08-24] MEDS: POTASSIUM CL 10MEQ/50ML IVPB 50 ML IV SCH ×2 (13:25→14:56)
--- NOTE | 2022-08-24 13:48 | Physician Query Clarification ---
Physician Query-General Query to Physician: The medical record reflects the following clinical scenario: The patient, in the setting of History/Risk factors, Pneumonia, UTI, Dementia Clinical Findings Admission VS/Labs: HR 111, RR 38, BP 112/61, SpO2 98% sat on 3 L T 37.1, WBC 16.8, PCT 1.33, lactic acid 1.58 Treatment ER: Normal saline 500 mL x 2, ceftriaxone IV, Azithromycin IV, Question: Do you agree with the impression of Sepsis per Dr. Nuno Lopez? 1. Yes; will document Sepsis present on admission, in the Progress Notes 2. No; will continue current documentation in the Progress Notes 3. Other; will document explanation of clinical findings 4. Clinically undetermined; no explanation for clinical findings Please clarify and document your clinical opinion in the Progress Notes and Discharge Summary including the definitive and/or presumptive diagnosis, (suspected or probable), related to the above clinical findings. Please include clinical findings supporting your diagnosis. In responding to this query, please exercise your independent professional judgment. The purpose of this communication is to more accurately reflect the complexity of your patients condition. The fact that a question is asked does not imply that any particular answer is desired or expected. Thank you for timely response to this clarification. Shi Evans RN, MSN Clinical Cut Out Press Operator [phone] [email or web address] PHYSICIAN RESPONSE: Based on the clinical findings in the record, please respond to the query above on this document as an addendum. Physician Response: Physician Response 2 If you have questions please contact: Composition Weatherboard Installer: Ext: Thank you for your time and cooperation. Clinical Cut Out Press Operator/Composition Weatherboard Installer This is a permanent part of the medical record SHI EVANS Aug 24, 2022 13:48 SHERRILL NEW DO Aug 25, 2022 12:59
--- NOTE | 2022-08-24 13:58 | Physician Query Clarification ---
Physician Query-General Query to Physician: The medical record reflects the following clinical evidence: Clinical Indicators: RR 38 on admission then was 16-24, 3 L oxygen on admission decreased to 2 L but not titrated off. Shortness of air at rest and accessory muscle use on admission, O2 sat on admission was 98% then documented to be 90% on 2 L on the next VS set, (P/F=214) Risk Factor(s): Advanced Dementia, RLL Pneumonia, No documentation of home O2 use Treatment: Supplemental 02, Respiratory monitoring, Duonebs, IV ABX, 1. Acute respiratory failure, with hypoxia, present on admission 2. Other explanation of clinical findings 3. Unable to determine (no explanation for clinical findings) Please clarify and document your clinical opinion in the progress notes and discharge summary including the definitive and/or presumptive diagnosis, (suspected or probable), related to the above clinical findings. Please include clinical findings supporting your diagnosis. Shi Evans RN, MSN Clinical Surgical Scrub Tech [phone] [email or web address] PHYSICIAN RESPONSE: Based on the clinical findings in the record, please respond to the query above on this document as an addendum. Physician Response: Physician Response 1 If you have questions please contact: Cold Roll Packer Sheet Iron: Ext: Thank you for your time and cooperation. Clinical Surgical Scrub Tech/Cold Roll Packer Sheet Iron This is a permanent part of the medical record SHI EVANS Aug 24, 2022 13:58 SHERRILL NEW DO Aug 25, 2022 12:59
--- NOTE | 2022-08-24 16:12 | Diagnostic Imaging Report ---
INDICATION: Pneumonia Frontal chest obtained at 1:45 p.m. and compared to 08/18/2022. There is cardiomegaly. There is mild central vascular congestion which is unchanged. There is persistent infiltrate in the right lung base, there is perhaps some improved aeration of the right base with better visualization of right hemidiaphragm. There is no pneumothorax or significant sized pleural effusion. IMPRESSION: Slight improvement in right basilar infiltrate compared to the prior study. No other new finding. Dictated by: Dictated on workstation # [id number]
[2022-08-24] MEDS: ENOXAPARIN 40 MG/0.4 ML (LOVENOX) SYR SC SCH (22:18)
[2022-08-25 03:28] VITALS: BP 109/48
[2022-08-25 06:25] LABS: BASOPHILS % (AUTO) 0 % (0-10); EOSINOPHILS # (AUTO) 0.1 10^3/uL (0.0-0.3); EOSINOPHILS % (AUTO) 2 % (0-10); HEMATOCRIT 29 % (35-52); HEMOGLOBIN 9.8 g/dL (11.5-16.0); LYMPHOCYTES # (AUTO) 0.7 10^3/uL (1.0-4.0); LYMPHOCYTES % (AUTO) 23 % (12-44); MEAN CORPUSCULAR HEMOGLOBIN 31 pg (25-34); MEAN CORPUSCULAR HGB CONC 33 g/dL (32-36); MEAN CORPUSCULAR VOLUME 93 fL (80-99); MEAN PLATELET VOLUME 11.7 fL (9.0-12.2); MONOCYTES # (AUTO) 0.5 10^3/uL (0.0-1.0); MONOCYTES % (AUTO) 14 % (0-12); NEUTROPHILS # (AUTO) 1.9 10^3/uL (1.8-7.8); NEUTROPHILS % (AUTO) 61 % (42-75); PLATELET COUNT 212 10^3/uL (130-400); WHITE BLOOD COUNT 3.2 10^3/uL (4.3-11.0)
[2022-08-25 06:26] LABS: SMEAR SCAN COMMENT YES
[2022-08-25 06:45] LABS: ALBUMIN 2.1 GM/DL (3.2-4.5); BILIRUBIN,TOTAL 0.4 MG/DL (0.1-1.0); CALCIUM 7.8 MG/DL (8.5-10.1); CREATININE SERUM 0.55 MG/DL (0.60-1.30); POTASSIUM 3.9 MMOL/L (3.6-5.0)
[2022-08-25 07:38] VITALS: BP 125/59
[2022-08-25] MEDS: 1/2 NS W/KCL 20 MEQ/L 1,000 ML IV SCH (09:01)
[2022-08-25] MEDS: PANTOPRAZOLE 40 MG (PROTONIX) VIAL IV SCH (09:02)
[2022-08-25 10:45] VITALS: BP 125/59
--- NOTE | 2022-08-25 13:10 | Discharge Summary ---
Diagnosis/Chief Complaint Date of Admission Aug 18, 2022 at 17:50 Date of Discharge Aug 25, 2022 at 10:45 Discharge Date: Aug 25, 2022 Discharge Diagnosis 1. Acute Respiratory Failure with Hypoxia 2. Right Lower Lobe Pneumonia 3. Severe Hypernatremia 4. Severe Dehydration 5. Anorexia 6. End Stage Dementia 7. COPD with acute exacerbation 8. Cachexia/Debility 9. Hypokalemia Discharge Summary Hospital Course Was the Problem List Reviewed?: Yes Hospital Course This is a 77 year old female with end stage dementia and COPD who has had poor oral intake for several days. She was becoming hypoxic with hypotension so she was brought to the emergency room for evaluation from the retirement. She was found to be severely hypernatremic with a sodium level of 167 and her CXR showed a RLL infiltrate. She was admitted to the medical floor for IV antibiotics and IV fluids. She was given IV rocephin and zithromax. She was started on D5W and her sodium did improve back to normal by discharge. She required oxygen via NC as well as breathing treatments with albuterol and duoneb. She continued to have poor oral intake as well as confusion and garbled speech. It was discussed with her sister that due to her worsening dementia and refusal to eat or drink that going back on hospice was her best option. She did have a repeat CXR which showed improvement in her pneumonia. Despite her improvement in her sodium and CXR, her mental status continued to be altered with poor communication and littl e to no oral intake. She will be discharged back to [facility] on hospice care. Labs Laboratory Tests 08/23/22 05:40: Red Blood Count 2.96L, Hemoglobin 9.2L, Hematocrit 28L, Mean Platelet Volume 12.5H, Neutrophils (%) (Auto) 76H, Lymphocytes # (Auto) 0.7L, Potassium Level 3.2L, Glucose Level 107H, Calcium Level 7.7L, Aspartate Amino Transf (AST/SGOT) 52H, Total Protein 4.5L, Albumin 2.0L 08/24/22 05:35: Red Blood Count 3.21L, Hemoglobin 9.8L, Hematocrit 30L, Mean Platelet Volume 12.3H, Lymphocytes # (Auto) 0.6L, Potassium Level 3.0L, Glucose Level 109H, Calcium Level 7.9L, Aspartate Amino Transf (AST/SGOT) 82H, Total Protein 5.0L, Albumin 2.1L, Anion Gap 4L, Blood Urea Nitrogen 5L, Creatinine 0.57L 08/25/22 05:50: Red Blood Count 3.15L, Hemoglobin 9.8L, Hematocrit 29L, Lymphocytes # (Auto) 0.7L, Calcium Level 7.8L, Aspartate Amino Transf (AST/SGOT) 91H, Total Protein 5.0L, Albumin 2.1L, Blood Urea Nitrogen 6L, Creatinine 0.55L, White Blood Count 3.2L, Monocytes (%) (Auto) 14H Procedures None. Discharge Physical Examination Allergies: Coded Allergies: No Known Drug Allergies (Verified , 10/28/17) Vitals & I&Os Vital Signs Date Time Temp Pulse Resp B/P (MAP) Pulse Ox O2 Delivery O2 Flow Rate FiO2 08/25/22 10:45 36.7 67 16 125/59 99 Nasal Cannula 2.00 General Appearance: Mild Distress Respiratory: Other (poor inspiration/coarse) Cardiovascular: Regular Rate Abdominal: Normal Bowel Sounds, Soft Extremities: No Clubbing, No Cyanosis, No Edema Neuro: Other Psych/Mental Status: Other (confused/garbled speech) Discharge Home Medications Reviewed and agree with Discharge Medication list on patient's Discharge Instruction sheet Instructions to Patient/Family Please see electronic discharge instructions given to patient. SHERRILL NEW DO Aug 25, 2022 13:10
== END 2022-08-25 10:45 | disposition hospice, home (50) | DRG 193 ==
LOC: EDUNIT# 14:49 → ER 14:50 → 4TH 17:50
PROVIDERS: ADMIT Family Medicine; ATTEND Family Medicine
DX: J18.9 Pneumonia, unspecified organism (principal); J96.01 Acute respiratory failure with hypoxia; E87.0 Hyperosmolality and hypernatremia; J44.1 Chronic obstructive pulmonary disease with (acute) exacerbation; R64 Cachexia; N39.0 Urinary tract infection, site not specified; E46 Unspecified protein-calorie malnutrition; J44.0 Chronic obstructive pulmonary disease with (acute) lower respiratory infection; Z68.1 Body mass index [BMI] 19.9 or less, adult; E86.0 Dehydration; R63.0 Anorexia; R53.81 Other malaise; E87.6 Hypokalemia; I95.9 Hypotension, unspecified; G30.9 Alzheimer's disease, unspecified; F02.80 Dementia in other diseases classified elsewhere, unspecified severity, without behavioral disturbance, psychotic disturbance, mood disturbance, and anxiety; R62.7 Adult failure to thrive; E78.00 Pure hypercholesterolemia, unspecified; M19.90 Unspecified osteoarthritis, unspecified site; E03.9 Hypothyroidism, unspecified; F32.A Depression, unspecified; M81.0 Age-related osteoporosis without current pathological fracture; I48.91 Unspecified atrial fibrillation; I50.9 Heart failure, unspecified; I11.0 Hypertensive heart disease with heart failure; Z20.822 Contact with and (suspected) exposure to COVID-19
CPT/HCPCS: 36415; 51702; 71045; 80053; 81000; 83605; 84145; 85007; 85025; 85027; 85610; 85730; 87040; 87088; 87636; 93005; 94760; 96361; 96365; 96367